=== PATIENT | female | born 1975 | race Asian ===

== ENCOUNTER 2021-08-06 09:47 | Outpatient (REF) | payer OTHER, SELFPAY ==
[2021-08-06 12:23] LABS: MANUAL DIFF FLAG NO
[2021-08-06 13:19] LABS: Basophils Absolute Auto 0.1 X10*3/uL (0.0-0.2); Basophils Percent Auto 0.8 % (0-2); Eosinophils Absolute Auto 0.1 X10*3/uL (0.0-0.4); Eosinophils Percent Auto 1.2 % (0-4); Hematocrit 35.4 % (37.0-47.0); Hemoglobin 11.2 g/dl (12.0-16.0); Imm Gran Abs Auto 0.01 X10*3/uL (0.00-0.03); Imm Gran Pct Auto 0.2 % (0.0-0.4); Lymphocytes Absolute Auto 1.6 X10*3/uL (1.2-4.9); Lymphocytes Percent Auto 24.8 % (20-40); Mean Corpuscular HGB Conc 31.6 g/dl (31.0-35.0); Mean Corpuscular Hemoglobin 27.9 pg (27.0-33.0); Mean Corpuscular Volume 88.3 fL (80.0-98.0); Mean Platelet Volume 10.7 fL (9.4-12.3); Monocytes Absolute Auto 0.3 X10*3/uL (0.1-1.2); Monocytes Percent Auto 4.9 % (2-11); Neutrophils Absolute Auto 4.5 x10*3/uL (2.0-8.3); Neutrophils Percent Auto 68.1 % (45-73); Platelet Count 291 X10*3/uL (160-400); Red Blood Count 4.01 X10*6/uL (4.20-5.50); Red Cell Distribution Width 14.2 % (11.0-16.0); White Blood Count 6.5 X10*3/uL (4.8-10.8)
[2021-08-06 13:55] LABS: Alanine Aminotransferase 15 U/L (0-31); Aspartate Amino Transferase 24 U/L (5-31); C Reactive Protein 0.41 mg/dL (< or = 0.50); Estimated Glomerular Filt Rate > 60
[2021-08-06 14:03] LABS: Erythrocyte Sedimentation Rate 51 MM/HR (0-20)
[2021-08-10 14:16] LABS: Vitamin D 25-OH, D2 30 ng/mL; Vitamin D 25-OH, D3 <4 ng/mL; Vitamin D 25-OH, Total 30 ng/mL (30-100)
== END 2021-08-06 09:48 | disposition home or self-care (01) ==
LOC: HO.LAB 09:47
PROVIDERS: PCP Physician Assistant; Visit Provider Internal Medicine Rheumatology
DX: M17.0 Bilateral primary osteoarthritis of knee (principal); M05.9 Rheumatoid arthritis with rheumatoid factor, unspecified; E78.5 Hyperlipidemia, unspecified; E55.9 Vitamin D deficiency, unspecified; Z79.899 Other long term (current) drug therapy
CPT/HCPCS: 20610; 36415; 82306; 82565; 84450; 84460; 85025; 85652; 86140; 99212

== ENCOUNTER 2021-12-09 12:04 | Outpatient (REF) | payer OTHER, SELFPAY ==
[2021-12-09 13:30] LABS: MANUAL DIFF FLAG NO
[2021-12-09 13:37] LABS: Basophils Percent Auto 0.6 % (0-2); Eosinophils Absolute Auto 0.1 X10*3/uL (0.0-0.4); Eosinophils Percent Auto 1.5 % (0-4); Hematocrit 36.7 % (37.0-47.0); Hemoglobin 11.5 g/dl (12.0-16.0); Imm Gran Abs Auto 0.02 X10*3/uL (0.00-0.03); Imm Gran Pct Auto 0.3 % (0.0-0.4); Lymphocytes Absolute Auto 1.4 X10*3/uL (1.2-4.9); Lymphocytes Percent Auto 20.9 % (20-40); Mean Corpuscular HGB Conc 31.3 g/dl (31.0-35.0); Mean Corpuscular Hemoglobin 27.3 pg (27.0-33.0); Mean Platelet Volume 10.7 fL (9.4-12.3); Monocytes Absolute Auto 0.4 X10*3/uL (0.1-1.2); Monocytes Percent Auto 6.6 % (2-11); Neutrophils Absolute Auto 4.7 x10*3/uL (2.0-8.3); Neutrophils Percent Auto 70.1 % (45-73); Platelet Count 310 X10*3/uL (160-400); Red Blood Count 4.22 X10*6/uL (4.20-5.50); Red Cell Distribution Width 14.7 % (11.0-16.0); White Blood Count 6.7 X10*3/uL (4.8-10.8)
[2021-12-09 14:05] LABS: Alanine Aminotransferase 20 U/L (0-31); Albumin Level 4.3 g/dL (3.5-5.0); Alkaline Phosphatase 143 U/L (39-117); Anion Gap 16 (12-20); Aspartate Amino Transferase 25 U/L (5-31); Bilirubin Total 0.4 mg/dL (0.0-1.0); Blood Urea Nitrogen 23 mg/dL (9-16); C Reactive Protein 0.42 mg/dL (< or = 0.50); Calcium 9.6 mg/dL (8.4-10.2); Carbon Dioxide 24 mmol/L (22-29); Chloride 104 mmol/L (96-108); Estimated Glomerular Filt Rate > 60; Glucose Random 82 mg/dL (60-115); Potassium 4.8 mmol/L (3.3-5.1); Sodium 139 mmol/L (135-145); Total Protein 7.5 g/dL (6.5-8.0)
[2021-12-09 14:33] LABS: Erythrocyte Sedimentation Rate 70 MM/HR (0-20)
== END 2021-12-09 12:05 | disposition home or self-care (01) ==
LOC: HO.10HDL 12:04
PROVIDERS: Visit Provider Internal Medicine Rheumatology
DX: M05.9 Rheumatoid arthritis with rheumatoid factor, unspecified (principal); M66.20 Spontaneous rupture of extensor tendons, unspecified site; M17.0 Bilateral primary osteoarthritis of knee; Z79.899 Other long term (current) drug therapy
CPT/HCPCS: 36415; 80053; 85025; 85652; 86140; 99212

== ENCOUNTER 2021-12-25 08:24 | Outpatient (REF) | payer OTHER, SELFPAY ==
--- NOTE | ~2021-12-25 | XR_ITS ---
EXAMINATION: XR HAND, RIGHT CLINICAL INFORMATION: Pain in right hand COMPARISON: None TECHNIQUE: PA, lateral, and oblique views of the right hand. FINDINGS: There is loss of PIP and DIP joint space of all digits. In addition there is anterior subluxation of second MCP joint. No visible acute fracture, dislocation or subluxation seen. There is ex articular osteoporosis suspicious for arthritis. No visible acute fracture seen. XR/XR hand RT min 3V IMPRESSION: Findings suspicious for rheumatoid arthritis. There is anterior subluxation of second MCP joint. Loss of PIP and DIP joint space all digits is noted. No acute fractures seen.
== END 2021-12-25 08:25 | disposition home or self-care (01) ==
LOC: HO.HOSX 08:24
PROVIDERS: Visit Provider Orthopaedic Surgery
DX: M79.641 Pain in right hand (principal); M66.20 Spontaneous rupture of extensor tendons, unspecified site; M05.9 Rheumatoid arthritis with rheumatoid factor, unspecified
CPT/HCPCS: 73130; 99202

== ENCOUNTER 2022-01-14 11:54 | Outpatient (REF) | payer OTHER, SELFPAY ==
[2022-01-14 13:40] LABS: MANUAL DIFF FLAG NO
[2022-01-14 13:50] LABS: Basophils Percent Auto 0.4 % (0-2); Eosinophils Absolute Auto 0.1 X10*3/uL (0.0-0.4); Eosinophils Percent Auto 0.9 % (0-4); Hematocrit 35.4 % (37.0-47.0); Hemoglobin 11.4 g/dl (12.0-16.0); Imm Gran Abs Auto 0.02 X10*3/uL (0.00-0.03); Imm Gran Pct Auto 0.3 % (0.0-0.4); Lymphocytes Absolute Auto 1.3 X10*3/uL (1.2-4.9); Lymphocytes Percent Auto 18.4 % (20-40); Mean Corpuscular HGB Conc 32.2 g/dl (31.0-35.0); Mean Corpuscular Hemoglobin 28.1 pg (27.0-33.0); Mean Corpuscular Volume 87.2 fL (80.0-98.0); Mean Platelet Volume 10.7 fL (9.4-12.3); Monocytes Absolute Auto 0.4 X10*3/uL (0.1-1.2); Monocytes Percent Auto 6.4 % (2-11); Neutrophils Absolute Auto 5.1 x10*3/uL (2.0-8.3); Neutrophils Percent Auto 73.6 % (45-73); Platelet Count 292 X10*3/uL (160-400); Red Blood Count 4.06 X10*6/uL (4.20-5.50); Red Cell Distribution Width 14.6 % (11.0-16.0); White Blood Count 6.9 X10*3/uL (4.8-10.8)
[2022-01-14 14:40] LABS: Alanine Aminotransferase 12 U/L (0-31); Albumin Level 4.2 g/dL (3.5-5.0); Alkaline Phosphatase 135 U/L (39-117); Anion Gap 16 (12-20); Aspartate Amino Transferase 24 U/L (5-31); Bilirubin Total 0.3 mg/dL (0.0-1.0); Blood Urea Nitrogen 21 mg/dL (9-16); C Reactive Protein 0.73 mg/dL (< or = 0.50); Calcium 9.8 mg/dL (8.4-10.2); Carbon Dioxide 24 mmol/L (22-29); Chloride 106 mmol/L (96-108); Cholesterol 162 mg/dL; Estimated Glomerular Filt Rate > 60; Glucose Random 75 mg/dL (60-115); HDL Cholesterol 52 mg/dL; LDL Cholesterol Calculated 87 mg/dl; Potassium 4.6 mmol/L (3.3-5.1); Sodium 141 mmol/L (135-145); Total Protein 7.4 g/dL (6.5-8.0); Triglycerides 118 mg/dL
[2022-01-14 14:46] LABS: Erythrocyte Sedimentation Rate 58 MM/HR (0-20)
== END 2022-01-14 11:55 | disposition home or self-care (01) ==
LOC: HO.10HDL 11:54
PROVIDERS: Visit Provider Internal Medicine Rheumatology
DX: M66.20 Spontaneous rupture of extensor tendons, unspecified site (principal); M05.9 Rheumatoid arthritis with rheumatoid factor, unspecified; M17.0 Bilateral primary osteoarthritis of knee; E78.5 Hyperlipidemia, unspecified; Z79.899 Other long term (current) drug therapy
CPT/HCPCS: 36415; 80053; 80061; 85025; 85652; 86140; 99212

== ENCOUNTER 2022-04-28 07:54 | Outpatient (REF) | payer OTHER, SELFPAY ==
[2022-04-28 09:05] LABS: MANUAL DIFF FLAG NO
[2022-04-28 09:30] LABS: Basophils Percent Auto 0.5 % (0-2); Eosinophils Absolute Auto 0.1 X10*3/uL (0.0-0.4); Eosinophils Percent Auto 0.8 % (0-4); Hemoglobin 11.7 g/dl (12.0-16.0); Imm Gran Abs Auto 0.02 X10*3/uL (0.00-0.03); Imm Gran Pct Auto 0.3 % (0.0-0.4); Lymphocytes Absolute Auto 2.3 X10*3/uL (1.2-4.9); Lymphocytes Percent Auto 38.5 % (20-40); Mean Corpuscular HGB Conc 31.6 g/dl (31.0-35.0); Mean Corpuscular Hemoglobin 27.5 pg (27.0-33.0); Mean Corpuscular Volume 87.1 fL (80.0-98.0); Mean Platelet Volume 10.2 fL (9.4-12.3); Monocytes Absolute Auto 0.4 X10*3/uL (0.1-1.2); Monocytes Percent Auto 6.4 % (2-11); Neutrophils Absolute Auto 3.2 x10*3/uL (2.0-8.3); Neutrophils Percent Auto 53.5 % (45-73); Platelet Count 321 X10*3/uL (160-400); Red Blood Count 4.25 X10*6/uL (4.20-5.50); Red Cell Distribution Width 14.9 % (11.0-16.0); White Blood Count 5.9 X10*3/uL (4.8-10.8)
[2022-04-28 09:59] LABS: Alanine Aminotransferase 15 U/L (0-31); Aspartate Amino Transferase 24 U/L (5-31); C Reactive Protein 0.18 mg/dL (< or = 0.50); Estimated Glomerular Filt Rate > 60
[2022-04-28 10:09] LABS: Erythrocyte Sedimentation Rate 40 MM/HR (0-20)
== END 2022-04-28 07:55 | disposition home or self-care (01) ==
LOC: HO.LAB 07:54
PROVIDERS: PCP Physician Assistant; Visit Provider Internal Medicine Rheumatology
DX: M05.9 Rheumatoid arthritis with rheumatoid factor, unspecified (principal); M17.0 Bilateral primary osteoarthritis of knee; Z79.899 Other long term (current) drug therapy
CPT/HCPCS: 36415; 82565; 84450; 84460; 85025; 85652; 86140; 99212

== ENCOUNTER 2022-08-19 11:39 | Outpatient (REF) | payer OTHER, SELFPAY ==
[2022-08-19 13:16] LABS: MANUAL DIFF FLAG NO
[2022-08-19 13:19] LABS: Basophils Percent Auto 0.6 % (0-2); Eosinophils Absolute Auto 0.2 X10*3/uL (0.0-0.4); Eosinophils Percent Auto 2.1 % (0-4); Hematocrit 37.6 % (37.0-47.0); Hemoglobin 11.8 g/dl (12.0-16.0); Imm Gran Abs Auto 0.02 X10*3/uL (0.00-0.03); Imm Gran Pct Auto 0.3 % (0.0-0.4); Lymphocytes Absolute Auto 2.2 X10*3/uL (1.2-4.9); Lymphocytes Percent Auto 31.2 % (20-40); Mean Corpuscular HGB Conc 31.4 g/dl (31.0-35.0); Mean Corpuscular Hemoglobin 27.6 pg (27.0-33.0); Mean Corpuscular Volume 87.9 fL (80.0-98.0); Monocytes Absolute Auto 0.4 X10*3/uL (0.1-1.2); Monocytes Percent Auto 5.5 % (2-11); Neutrophils Absolute Auto 4.2 x10*3/uL (2.0-8.3); Neutrophils Percent Auto 60.3 % (45-73); Platelet Count 311 X10*3/uL (160-400); Red Blood Count 4.28 X10*6/uL (4.20-5.50); Red Cell Distribution Width 14.1 % (11.0-16.0)
[2022-08-19 13:41] LABS: Alanine Aminotransferase 36 U/L (0-31); Aspartate Amino Transferase 29 U/L (5-31); C Reactive Protein 0.32 mg/dL (< or = 0.50); Estimated Glomerular Filt Rate > 60
[2022-08-19 14:10] LABS: Erythrocyte Sedimentation Rate 44 MM/HR (0-20)
== END 2022-08-19 11:40 | disposition home or self-care (01) ==
LOC: HO.10HDL 11:39
PROVIDERS: Visit Provider Internal Medicine Rheumatology
DX: M05.9 Rheumatoid arthritis with rheumatoid factor, unspecified (principal); Z79.899 Other long term (current) drug therapy
CPT/HCPCS: 36415; 82565; 84450; 84460; 85025; 85652; 86140

== ENCOUNTER → 2022-08-20 08:30 | Outpatient (BNVA) | payer OTHER, SELFPAY | PROVIDERS: PCP Physician Assistant; Visit Provider Internal Medicine Rheumatology | DX: M17.0 Bilateral primary osteoarthritis of knee (principal); M05.9 Rheumatoid arthritis with rheumatoid factor, unspecified; Z79.899 Other long term (current) drug therapy | CPT/HCPCS: 20610; 99212 ==

== ENCOUNTER 2022-11-20 09:59 | Outpatient (REF) | payer OTHER, SELFPAY ==
[2022-11-20 10:10] LABS: MANUAL DIFF FLAG NO
[2022-11-20 10:43] LABS: Basophils Absolute Auto 0.1 X10*3/uL (0.0-0.2); Basophils Percent Auto 0.7 % (0-2); Eosinophils Absolute Auto 0.1 X10*3/uL (0.0-0.4); Eosinophils Percent Auto 1.3 % (0-4); Hematocrit 34.4 % (37.0-47.0); Hemoglobin 10.9 g/dl (12.0-16.0); Imm Gran Abs Auto 0.03 X10*3/uL (0.00-0.03); Imm Gran Pct Auto 0.4 % (0.0-0.4); Lymphocytes Absolute Auto 2.1 X10*3/uL (1.2-4.9); Lymphocytes Percent Auto 29.7 % (20-40); Mean Corpuscular HGB Conc 31.7 g/dl (31.0-35.0); Mean Corpuscular Hemoglobin 27.5 pg (27.0-33.0); Mean Corpuscular Volume 86.9 fL (80.0-98.0); Mean Platelet Volume 10.2 fL (9.4-12.3); Monocytes Absolute Auto 0.4 X10*3/uL (0.1-1.2); Monocytes Percent Auto 6.1 % (2-11); Neutrophils Absolute Auto 4.4 x10*3/uL (2.0-8.3); Neutrophils Percent Auto 61.8 % (45-73); Platelet Count 280 X10*3/uL (160-400); Red Blood Count 3.96 X10*6/uL (4.20-5.50); Red Cell Distribution Width 14.5 % (11.0-16.0); White Blood Count 7.2 X10*3/uL (4.8-10.8)
[2022-11-20 11:14] LABS: Alanine Aminotransferase 14 U/L (0-31); Aspartate Amino Transferase 25 U/L (5-31); C Reactive Protein 0.87 mg/dL (< or = 0.50); Estimated Glomerular Filt Rate > 60
[2022-11-20 11:25] LABS: Erythrocyte Sedimentation Rate 57 MM/HR (0-20)
== END 2022-11-20 10:00 | disposition home or self-care (01) ==
LOC: HO.LAB 09:59
PROVIDERS: PCP Physician Assistant; Visit Provider Internal Medicine Rheumatology
DX: M17.0 Bilateral primary osteoarthritis of knee (principal); M05.9 Rheumatoid arthritis with rheumatoid factor, unspecified; Z79.899 Other long term (current) drug therapy
CPT/HCPCS: 36415; 82565; 84450; 84460; 85025; 85652; 86140; 99212

== ENCOUNTER 2022-11-20 10:21 | Outpatient (AMB) | payer OTHER, SELFPAY ==
--- NOTE | 2022-11-20 10:39 | A.OFFVIS_ITS ---
Intake Vital Signs 11/20/22 10:49 Height 5 ft Weight 132 lb 11.492 oz BMI 25.9 BP 104/62 Blood Pressure Location Lt brachial Position Sitting Pulse 76 Pulse Source Pulse Oximeter Temp 98.1 F Temp Source Skin Pulse Oximetry (%) 98 Oxygen Delivery Method Room Air Intake Visit Reasons: ra Intake Note: Here for RA follow up. Patient reports Xeljanz is not as effective anymore. Would like to go back to Rinvoq. 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 She reports a bit more pain in the right wrist, right hand, left elbow, and the left ankle. The knees did improve with a corticosteroid injection about 3 months ago but the left still has more pain when she walks. She has been on the Xeljanz 5 mg twice a day. She does take piroxicam 10 b.i.d. and occasionally takes 10 mg prednisone for 3 days in a row if her symptoms increase. At this point she agrees that the symptom control was better when she was on Rinvoq. However she had developed intermittent bloody diarrhea on the Rinvoq and thought it was related to that medication. She never made it for any significant workup. She now admits that she was taking a product for cleansing her colon. This was purchased in the form of a tea . This was apparently giving her diarrhea but she thought that was okay. Finally a friend told her that probably it was not a good idea so she stopped it and the diarrhea subsided. So at this point she wants to go back on the Rinvoq. [facility] Medical History (Updated 08/20/22 @ 13:52 by Vasyl Sousa MD) Cervical radicular pain History of latent tuberculosis Hyperlipidemia Long-term use of immunosuppressant medication Osteoarthritis of knees, bilateral Seropositive rheumatoid arthritis Vitamin D deficiency Social History Household Members: Family Housing: Condominium Are you a primary career placement specialist to a significant other at home: No Do you presently have visiting nurse or other home services: No 75 years or older and lives alone: No Alcohol intake: never Patient Tobacco Use Status: Never used Tobacco e-Cigarette/Vaping Use: Never Used service: No Current occupational status: employed Current occupation: [employer] Review of Systems Const Details: Negative for appetite change, weight change, fever, chills, malaise and fatigue Eyes Details: Negative for vision change, dry eyes,headaches and dizziness Card Details: Negative chest pain, edema and syncope Resp Details: Negative for SOB, cough and wheezing GI Details: Negative indigestion/heartburn, nausea, abdominal pain, bowel changes, diarrhea, constipation and bloody stool. Endo Details: Negative for polyuria and polydypsia Oumar/Lymph Details: Negative for excessive bruising or bleeding. Physical Exam Vital Signs: Last Vital Signs Temp 98.1 F 11/20/22 10:49 Pulse 76 11/20/22 10:49 BP 104/62 11/20/22 10:49 Pulse Ox 98 11/20/22 10:49 Oxygen Delivery Method Room Air 11/20/22 10:49 BMI result Body Mass Index 25.9 APPEARANCE: Patient in no acute distress EYES no redness, pupils equal and reactive to light, eyelids normal ABD: Normal bowel sounds, no organomegaly, masses or tenderness. EXTREMITIES: No edema, no calf tenderness, normal peripheral pulses. SKIN: No inflammatory or neoplastic lesions. Normal color and turgor JOINT EXAM: Cervical Spine:.? Full range of motion without pain; no tenderness. Thoracic Spine:.? No scoliosis.? No tenderness on palpation. Lumbar Spine:.? Alignment normal.? Full range of motion without pain, no tenderness. Chest Wall:.? No tenderness, swelling, increased warmth or erythema. Hands:? Right:? Mild swelling of the 1st 2 MCP joints. The 2nd MCP is mildly tender today. There is also some mild thickening at the 2nd PIP with mild tenderness. She has some early swan necking at the 2nd through 4th PIP joints. These are not tender today.? No flexor tendon triggering, tenderness or thenar atrophy.? She is seemingly able to extend the 4th and 5th fingers today. Left: Mild swelling and tenderness in the 2nd and 4th MCP joints. Some slight thickening and tenderness at the 5th PIP joint. Other PIP is seem okay without tenderness or swelling..? There is some slight swan necking evident in the 3rd and 4th PIP is but these are not tender or swollen today.? No thenar atrophy, flexor tendon triggering or sensory loss. Wrists:? Right:? There is mild pain with flexion at 10 degrees or extension at 30 degrees and motion is limited at those points.? There is slight flexion deformity, mild dorsal tenderness, and soft tissue swelling; her wrist is not red or warm.? She is wearing an Micheal bandage on it today.? Left :? There is normal pain-free range of motion without tenderness, swelling, increased warmth or erythema. Elbows:? Left:? She lacks about 5 degrees of full extension with some slight thickening and tenderness over the joint space.? Right:pain-free range of motion without tenderness, swelling, increased warmth or erythema. Shoulders:.??Right: Mild discomfort with extremes of normal range of motion. Slight anterior tenderness. No adenopathy or weakness. Left: Full range of motion without pain. No tenderness, weakness, swelling, increased warmth or erythema. Hips:.? Full range of motion without pain. Hip bursa:.? No tenderness. Knees:? Right:? There is mild discomfort with extremes of flexion or extension. There is slight medial compartment tenderness without effusion. There is some mild patellofemoral crepitus without redness or warmth.? There is no popliteal tenderness or swelling.? Left:? Mild pain flexion beyond 90 degrees or with attempts at full extension.? There is mild medial and lateral tenderness with no effusion, redness or warmth.? There is mild patellofemoral crepitus.? She has no popliteal swelling or tenderness. Ankles:? Left:? No tenderness with mild swelling.? No redness or warmth.? Right:? Slight discomfort with extremes of inversion or eversion and some minimal tenderness but no swelling, redness or warmth.? Feet:? Right:? Normal pain-free range of motion with some slight tenderness at the 1st 2 MTP joints but no swelling or redness is notable.? Left: Normal pain- free range of motion with tenderness across the instep.? No swelling, redness or warmth. ?? Results Reviewed Results Reviewed: Laboratory Tests 0208/19/22 11/20/22 09:04 11:48 10:05 WBC 7.2 Hgb 11.7 L 11.8 L 10.9 L Lymph # (Auto) 2.1 Laboratory Tests 08/19/22 11:48 Creatinine 0.72 AST 29 ALT 36 H C-Reactive Protein 0.32 Assessment & Plan Assessment & Plan (1) Osteoarthritis of knees, bilateral: Comment: secondary to RA Code(s): M17.0 - Bilateral primary osteoarthritis of knee (2) Long-term use of immunosuppressant medication: Code(s): Z79.899 - Other jail (current) drug therapy (3) Seropositive rheumatoid arthritis: Comment: 09/03 - early or mild rheumatoid arthritis; NSAIDs (topically and oral); 2014 - More synovitis. RF and CCP positive Low dose prednisone started 09/04 - side effects with methotrexate (oral ulcers, eye twitching). Humira started October 04, 2014 stopped after two doses due to headache, nausea, lightheadedness Cimzia since 03/06, sulfasalazine added 06/05 - not tolerated and stopped 09/05. Cimzia stopped as well 09/05 due to ineffectiveness Positive TB test - quantiferon 09/05 and isoniazid started Xeljanz started 01/27/16 - changed to Rinvoq due to faiing effectiveness 11/2021. R 4th and 5th tendon rupture. 07/2022 back on Xeljanz because she felt the Rinvoq gave abdominal pain, chest pain, and rectal bleeding. Code(s): M05.9 - Rheumatoid arthritis with rheumatoid factor, unspecified Plan Rheumatoid arthritis with multiple joint involvement with swelling; they seem to be more tender than they had been when she was on the Rinvoq. I would agree that she did better from a clinical standpoint in terms of control of the synovitis with the Rinvoq. The assumption was that the Rinvoq was giving her the diarrhea. Now she admits that she was taking many dosew of an [id number] colon cleansing tea. She was using it multiple times a day it was giving her the diarrhea. When she stopped it it did subside. I would tend to agree that this colon cleansing might have given her diarrhea and the subsequent bleeding. We will see if we can get the use of Rinvoq approved again for her insurance and she will stop the Xeljanz. The radiographs of the knees show advanced osteoarthritis in the knees so some of her knee pain, particularly that which comes on with walking is likely due to secondary osteoarthritis. This may limit her response to anti-inflammatory treatment. The hemoglobin is a bit lower today, perhaps related to increased synovitis. We will keep an eye on that as we monitor the Rinvoq. Lab workis done today and ordered for before next visit in 2 months. I warned her that when she takes [id number] substances without at least letting me know there is a risk that it could inte ract adversely with her disease or its medication. Orders: Orders Erythrocyte Sedimentation Rate Today M05.9 - Rheumatoid arthritis with rheumatoid factor, unspecified Alanine Aminotransferase Today M05.9 - Rheumatoid arthritis with rheumatoid factor, unspecified, Z79.899 - Other supervisor intermediates (current) drug therapy C Reactive Protein Today M05.9 - Rheumatoid arthritis with rheumatoid factor, unspecified Aspartate Amino Transferase Today M05.9 - Rheumatoid arthritis with rheumatoid factor, unspecified, Z79.899 - Other jail (current) drug therapy Complete Blood Count Auto Diff Today M05.9 - Rheumatoid arthritis with rheumatoid factor, unspecified, Z79.899 - Other jail (current) drug therapy Creatinine Today M05.9 - Rheumatoid arthritis with rheumatoid factor, unspecified, Z79.899 - Other supervisor intermediates (current) drug therapy Medications: New upadacitinib ER (Rinvoq) 15 mg PO DAILY 30 tabs 1RF M05.9 - Rheumatoid arthritis with rheumatoid factor, unspecified Changed From prednisone 10 mg PO DAILY PRN M05.9 - Rheumatoid arthritis with rheumatoid factor, unspecified To prednisone for 3 days in event of a flare up of pains 10 mg (2 x 5 mg) PO DAILY 30 tabs 0RF M05.9 - Rheumatoid arthritis with rheumatoid factor, unspecified Discontinued tofacitinib (Xeljanz) Discontinued Reason: Doctor's Order 5 mg PO BID 60 tabs 1RF M05.9 - Rheumatoid arthritis with rheumatoid factor, unspecified Coding Level of Care Code Est Pt Level 4 (19735) Diagnoses Osteoarthritis of knees, bilateral M17.0 Long-term use of immunosuppressant medication Z79.899 Seropositive rheumatoid arthritis M05.9
[2022-11-20 10:49] VITALS: BP 104/62; PULSE 76; TEMP 36.7; O2SAT 98; BMI 25.9
== END 2022-11-20 11:37 | disposition home or self-care (01) ==
PROVIDERS: PCP Physician Assistant; Visit Provider Internal Medicine Rheumatology
DX: M05.79 Rheumatoid arthritis with rheumatoid factor of multiple sites without organ or systems involvement (principal); M17.0 Bilateral primary osteoarthritis of knee; Z79.899 Other long term (current) drug therapy
CPT/HCPCS: 99214

== ENCOUNTER 2022-12-23 13:45 | Outpatient (REF) | payer OTHER, SELFPAY ==
[2022-12-23 14:02] LABS: MANUAL DIFF FLAG NO
[2022-12-23 14:48] LABS: Basophils Absolute Auto 0.1 X10*3/uL (0.0-0.2); Eosinophils Absolute Auto 0.1 X10*3/uL (0.0-0.4); Eosinophils Percent Auto 1.3 % (0-4); Hematocrit 38.4 % (37.0-47.0); Hemoglobin 12.1 g/dl (12.0-16.0); Imm Gran Abs Auto 0.02 X10*3/uL (0.00-0.03); Imm Gran Pct Auto 0.4 % (0.0-0.4); Lymphocytes Absolute Auto 1.9 X10*3/uL (1.2-4.9); Lymphocytes Percent Auto 36.8 % (20-40); Mean Corpuscular HGB Conc 31.5 g/dl (31.0-35.0); Mean Corpuscular Hemoglobin 28.1 pg (27.0-33.0); Mean Corpuscular Volume 89.1 fL (80.0-98.0); Mean Platelet Volume 10.4 fL (9.4-12.3); Monocytes Absolute Auto 0.4 X10*3/uL (0.1-1.2); Monocytes Percent Auto 7.1 % (2-11); Neutrophils Absolute Auto 2.8 x10*3/uL (2.0-8.3); Neutrophils Percent Auto 53.4 % (45-73); Platelet Count 314 X10*3/uL (160-400); Red Blood Count 4.31 X10*6/uL (4.20-5.50); Red Cell Distribution Width 15.1 % (11.0-16.0); White Blood Count 5.2 X10*3/uL (4.8-10.8)
[2022-12-23 15:23] LABS: Alanine Aminotransferase 67 U/L (0-31); Aspartate Amino Transferase 49 U/L (5-31); C Reactive Protein < 0.04 mg/dL (< or = 0.50); Estimated Glomerular Filt Rate > 60
[2022-12-23 15:31] LABS: Erythrocyte Sedimentation Rate 18 MM/HR (0-20)
== END 2022-12-23 13:46 | disposition home or self-care (01) ==
LOC: HO.LAB 13:45
PROVIDERS: Visit Provider Internal Medicine Rheumatology
DX: M05.9 Rheumatoid arthritis with rheumatoid factor, unspecified (principal); Z79.899 Other long term (current) drug therapy
CPT/HCPCS: 36415; 82565; 84450; 84460; 85025; 85652; 86140

== ENCOUNTER 2022-12-24 10:19 | Outpatient (AMB) | payer OTHER, SELFPAY ==
--- NOTE | 2022-12-24 10:30 | MHC.OFFVIS ---
Intake Vital Signs 12/24/22 10:42 Height 5 ft Weight 135 lb 9.349 oz BMI 26.5 BP 116/78 Blood Pressure Location Lt brachial Position Sitting Pulse 76 Pulse Source Pulse Oximeter Temp 97.4 F Temp Source Skin Pulse Oximetry (%) 98 Oxygen Delivery Method Room Air Intake Visit Reasons: ra Intake Note: Patient presents today to follow up on RA. 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 She says she feels much better now that she is back on Rinvoq at 15 mg daily, piroxicam 10 mg b.i.d., and occasional acetaminophen. She has not needed any prednisone since we restarted the Rinvoq. She is no longer working at a [employer]. [facility] Medical History (Updated 12/24/22 @ 13:28 by Vasyl Sousa MD) Vitamin D deficiency Long-term use of immunosuppressant medication Osteoarthritis of knees, bilateral Hyperlipidemia History of latent tuberculosis Cervical radicular pain Seropositive rheumatoid arthritis Social History Household Members: Family [facility] Are you a primary child care counselor to a significant other at home: No Do you presently have visiting nurse or other home services: No 75 years or older and lives alone: No Alcohol intake: never Patient Tobacco Use Status: Never used Tobacco e-Cigarette/Vaping Use: Never Used service: No Current occupational status: employed Current occupation: [employer] Review of Systems Const Details: Negative for appetite change, weight change, fever, chills, malaise and fatigue Eyes Details: Negative for vision change, dry eyes,headaches and dizziness ENT Details: Negative for hearing change, tinnitus, oral ulcer, nose bleeds and oral dryness. Card Details: Negative chest pain, edema and syncope Resp Details: Negative for SOB, cough and wheezing GI Details: Negative indigestion/heartburn, nausea, abdominal pain, bowel changes, diarrhea, constipation and bloody stool. Skin/Breast Details: Negative for itching, rash, hives, Raynaud's symptoms, sun sensitivity, and skin cancer Oumar/Lymph Details: Negative for excessive bruising or bleeding. Physical Exam Vital Signs: Last Vital Signs Temp 97.4 F 12/24/22 10:42 Pulse 76 12/24/22 10:42 BP 116/78 12/24/22 10:42 Pulse Ox 98 12/24/22 10:42 Oxygen Delivery Method Room Air 12/24/22 10:42 BMI result Body Mass Index 26.5 APPEARANCE: Patient in no acute distress EYES no redness, pupils equal and reactive to light, eyelids normal EXTREMITIES: No edema, no calf tenderness, normal peripheral pulses. JOINT EXAM: Cervical Spine:.? Full range of motion without pain; no tenderness. Thoracic Spine:.? No scoliosis.? No tenderness on palpation. Lumbar Spine:.? Alignment normal.? Full range of motion without pain, no tenderness. Chest Wall:.? No tenderness, swelling, increased warmth or erythema. Hands:? Right:? Mild swelling of the 2nd MCP joint. There is no tenderness in the MCP joints today. There is also some mild thickening at the 2nd PIP with no tenderness. She has some early swan necking at the 2nd through 4th PIP joints. These are not tender today.? No flexor tendon triggering, tenderness or thenar atrophy.? She is seemingly able to extend the 4th and 5th fingers today. Left: Mild swelling without tenderness at the 2nd and 4th MCP joints. Some slight thickening and but no tenderness at the 5th PIP joint. Other PIP's seem okay without tenderness or swelling..? There is some slight swan necking evident in the 3rd and 4th PIP is but these are not tender or swollen today.? No thenar atrophy, flexor tendon triggering or sensory loss. Wrists:? Right:? There is slight pain with flexion at 10 degrees or extension at 30 degrees and motion is limited at those points.? There is slight flexion deformity, minimal dorsal tenderness, and soft tissue swelling; her wrist is not red or warm.? She is wearing an Micheal bandage on it today.? Left :? There is normal pain-free range of motion without tenderness, swelling, increased warmth or erythema. Elbows:? Left:? She lacks about 5 degrees of full extension with some slight thickening and tenderness over the joint space.? Right:pain-free range of motion without tenderness, swelling, increased warmth or erythema. Shoulders:.??Right: No discomfort with extremes of normal range of motion. Slight anterior tenderness. No adenopathy or weakness. Left: Full range of motion without pain. No tenderness, weakness, swelling, increased warmth or erythema. Hips:.? Full range of motion without pain. Hip bursa:.? No tenderness. Knees:? Right:? There is mild discomfort with extremes of flexion or extension. There is slight medial compartment tenderness without effusion. There is some mild patellofemoral crepitus without redness or warmth.? There is no popliteal tenderness or swelling.? Left:? Mild pain flexion beyond 90 degrees or with attempts at full extension.? There is mild medial and lateral tenderness with no effusion, redness or warmth.? There is mild patellofemoral crepitus.? She has no popliteal swelling or tenderness. Ankles:? Left:? No tenderness with mild swelling.? No redness or warmth.? Right:? Slight discomfort with extremes of inversion or eversion and some minimal tenderness but no swelling, redness or warmth.? Feet:? Right:? Normal pain-free range of motion with some slight tenderness at the 1st 2 MTP joints but no swelling or redness is notable.? Left: Normal pain-free range of motion with tenderness across the instep.? No swelling, redness or warmth. ?? Results Reviewed Results Reviewed: Laboratory Tests 12/23/22 14:00 WBC 5.2 Hgb 12.1 ESR 18 Creatinine 0.76 AST 49 H ALT 67 H C-Reactive Protein < 0.04 Assessment & Plan Assessment & Plan (1) Elevated transaminase measurement: Code(s): R74.01 - Elevation of levels of liver transaminase levels (2) Long-term use of immunosuppressant medication: Code(s): Z79.899 - Other intermediate card tender (current) drug therapy (3) Osteoarthritis of knees, bilateral: Comment: secondary to RA Code(s): M17.0 - Bilateral primary osteoarthritis of knee (4) Seropositive rheumatoid arthritis: Comment: 09/03 - early or mild rheumatoid arthritis; NSAIDs (topically and oral); 2014 - More synovitis. RF and CCP positive Low dose prednisone started 09/04 - side effects with methotrexate (oral ulcers, eye twitching). Humira started October 04, 2014 stopped after two doses due to headache, nausea, lightheadedness Cimzia since 03/06, sulfasalazine added 06/05 - not tolerated and stopped 09/05. Cimzia stopped as well 09/05 due to ineffectiveness Positive TB test - quantiferon 09/05 and isoniazid started Xeljanz started 01/27/16 - changed to Rinvoq due to faiing effectiveness 11/2021. R 4th and 5th tendon rupture. 07/2022 back on Xeljanz because she felt the Rinvoq gave abdominal pain, chest pain, and rectal bleeding. 11/2022 -back on Rinvoq; xeljanz not effective(Gi symptoms felt due to colonic purging supplements) Code(s): M05.9 - Rheumatoid arthritis with rheumatoid factor, unspecified Plan Rheumatoid arthritis with improvement in her symptoms and signs of synovitis with the reinstitution of the Rinvoq. She is no longer needing any prednisone. She does have mild elevation of the transaminases. This had been seen once before. I think she was on the Rinvoq at the time. She did not seem to have any progression of that problem. She has not gained any weight. There is no documented history of type 2 diabetes. She is not using alcohol. I told her that it is possible the Rinvoq is causing the LFT elevations but I do not think it is at a degree that would push us to stop the medications. The numbers do bear watching with another set of lab work in about 5 weeks or so. It is also possible she might have been exposed to a virus that caused some mild transaminase elevations. She remains concerned about the LFT elevations but I explained that we would be following them closely. We will schedule her back for 2 months but again recheck the lab work in 4 or 5 weeks. Today's history, exam, and review of laboratory work with her took 36 minutes. Orders: Orders Alanine Aminotransferase Today Z79.899 - Other retirement (current) drug therapy Aspartate Amino Transferase Today Z79.899 - Other intermediate card tender (current) drug therapy C Reactive Protein 1 Week M05.9 - Rheumatoid arthritis with rheumatoid factor, unspecified Erythrocyte Sedimentation Rate 1 Week M05.9 - Rheumatoid arthritis with rheumatoid factor, unspecified Complete Blood Count Auto Diff 1 Week M05.9 - Rheumatoid arthritis with rheumatoid factor, unspecified, Z79.899 - Other intermediate card tender (current) drug therapy Creatinine Today M05.9 - Rheumatoid arthritis with rheumatoid factor, unspecified, Z79.899 - Other intermediate card tender (current) drug therapy Medications: Changed From prednisone for 3 days in event of a flare up of pains 10 mg (2 x 5 mg) PO DAILY 30 tabs 0RF M05.9 - Rheumatoid arthritis with rheumatoid factor, unspecified To prednisone for 3 days in event of a flare up of pains 10 mg PO .prn M05.9 - Rheumatoid arthritis with rheumatoid factor, unspecified Coding Level of Care Code Est Pt Level 4 (27564) Diagnoses Elevated transaminase measurement R74.01 Long-term use of immunosuppressant medication Z79.899 Osteoarthritis of knees, bilateral M17.0 Seropositive rheumatoid arthritis M05.9
[2022-12-24 10:42] VITALS: BP 116/78; PULSE 76; TEMP 36.3; O2SAT 98; BMI 26.5
== END 2022-12-24 11:16 | disposition home or self-care (01) ==
PROVIDERS: PCP Physician Assistant; Visit Provider Internal Medicine Rheumatology
DX: M05.79 Rheumatoid arthritis with rheumatoid factor of multiple sites without organ or systems involvement (principal); R74.01 Elevation of levels of liver transaminase levels; Z79.899 Other long term (current) drug therapy; M17.0 Bilateral primary osteoarthritis of knee
CPT/HCPCS: 99214

== ENCOUNTER → 2022-12-24 10:19 | Outpatient (BNVA) | payer OTHER, SELFPAY | PROVIDERS: PCP Physician Assistant; Visit Provider Internal Medicine Rheumatology | DX: M05.9 Rheumatoid arthritis with rheumatoid factor, unspecified (principal); M17.0 Bilateral primary osteoarthritis of knee; R74.01 Elevation of levels of liver transaminase levels; Z79.69 Long term (current) use of other immunomodulators and immunosuppressants | CPT/HCPCS: 99212 ==

== ENCOUNTER 2023-02-23 11:59 | Outpatient (REF) | payer OTHER, SELFPAY ==
[2023-02-23 13:22] LABS: MANUAL DIFF FLAG NO
[2023-02-23 13:55] LABS: Basophils Percent Auto 0.6 % (0-2); Eosinophils Absolute Auto 0.1 X10*3/uL (0.0-0.4); Eosinophils Percent Auto 1.2 % (0-4); Hematocrit 36.4 % (37.0-47.0); Hemoglobin 11.9 g/dl (12.0-16.0); Imm Gran Abs Auto 0.01 X10*3/uL (0.00-0.03); Imm Gran Pct Auto 0.2 % (0.0-0.4); Lymphocytes Absolute Auto 2.1 X10*3/uL (1.2-4.9); Lymphocytes Percent Auto 41.7 % (20-40); Mean Corpuscular HGB Conc 32.7 g/dl (31.0-35.0); Mean Corpuscular Hemoglobin 29.2 pg (27.0-33.0); Mean Corpuscular Volume 89.4 fL (80.0-98.0); Mean Platelet Volume 10.7 fL (9.4-12.3); Monocytes Absolute Auto 0.4 X10*3/uL (0.1-1.2); Monocytes Percent Auto 8.3 % (2-11); Neutrophils Absolute Auto 2.4 x10*3/uL (2.0-8.3); Platelet Count 266 X10*3/uL (160-400); Red Blood Count 4.07 X10*6/uL (4.20-5.50)
[2023-02-23 14:03] LABS: C Reactive Protein < 0.10 mg/dL (< or = 0.50)
[2023-02-23 15:23] LABS: Erythrocyte Sedimentation Rate 14 MM/HR (0-20)
[2023-02-24 11:19] LABS: Alanine Aminotransferase 29 U/L (0-31); Aspartate Amino Transferase 34 U/L (5-31); Estimated Glomerular Filt Rate > 60
== END 2023-02-23 12:00 | disposition home or self-care (01) ==
LOC: HO.10HDL 11:59
PROVIDERS: Visit Provider Internal Medicine Rheumatology
DX: M05.9 Rheumatoid arthritis with rheumatoid factor, unspecified (principal); Z79.899 Other long term (current) drug therapy
CPT/HCPCS: 36415; 82565; 84450; 84460; 85025; 85652; 86140

== ENCOUNTER 2023-02-24 10:25 | Outpatient (AMB) | payer OTHER, SELFPAY ==
--- NOTE | 2023-02-24 10:28 | A.OFFVIS_ITS ---
"Intake Vital Signs 02/24/23 10:29 Height 5 ft Weight 141 lb 1.533 oz BMI 27.6 BP 100/60 Blood Pressure Location Lt brachial Position Sitting Pulse 82 Pulse Source Pulse Oximeter Temp 97.5 F Temp Source Skin Pulse Oximetry (%) 100 Oxygen Delivery Method Room Air Intake Visit Reasons: ra Intake Note: Patient presents today to follow up on lab results and RA. 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 She remains on Rinvoq 15 mg weekly, piroxicam 10 mg b.i.d., and occasional prednisone 5 mg. She said in the past month she maybe took the prednisone once, she takes 2 tablets if she has a bad day. There do not appear to be any side effects she says with her current treatment. She remains on the atorvastatin for her hyperlipidemia. This had developed when she went on the Xeljanz in the past. [facility] Medical History (Updated 12/24/22 @ 13:28 by Vasyl Sousa MD) Vitamin D deficiency Long-term use of immunosuppressant medication Osteoarthritis of knees, bilateral Hyperlipidemia History of latent tuberculosis Cervical radicular pain Seropositive rheumatoid arthritis Social History Household Members: Family Housing: [facility] Are you a primary career developer to a significant other at home: No Do you presently have visiting nurse or other home services: No 75 years or older and lives alone: No Alcohol intake: never Patient Tobacco Use Status: Never used Tobacco e-Cigarette/Vaping Use: Never Used service: No Current occupational status: employed Current occupation: [employer] Const Details: Negative for appetite change, weight change, fever, chills, malaise and fatigue Eyes Details: Negative for vision change, dry eyes,headaches and dizziness ENT Details: Negative for hearing change, tinnitus, oral ulcer, nose bleeds and oral dryness. Card Details: Negative chest pain, edema and syncope Resp Details: Negative for SOB, cough and wheezing GI Details: Negative indigestion/heartburn, nausea, abdominal pain, bowel changes, diarrhea, constipation and bloody stool. Skin/Breast Details: Negative for itching, rash, hives, Raynaud's symptoms, sun sensitivity, and skin cancer Oumar/Lymph Details: Negative for excessive bruising or bleeding. Physical Exam Vital Signs: Last Vital Signs Temp 97.5 F 02/24/23 10:29 Pulse 82 02/24/23 10:29 BP 100/60 02/24/23 10:29 Pulse Ox 100 02/24/23 10:29 Oxygen Delivery Method Room Air 02/24/23 10:29 BMI result Body Mass Index 27.6 APPEARANCE: Patient in no acute distress EYES no redness, pupils equal and reactive to light, eyelids normal ABD: Normal bowel sounds, no organomegaly, masses or tenderness. EXTREMITIES: No edema, no calf tenderness, normal peripheral pulses. SKIN: No inflammatory or neoplastic lesions. Normal color and turgor JOINT EXAM: Cervical Spine:.? Full range of motion without pain; no tenderness. Thoracic Spine:.? No scoliosis.? No tenderness on palpation. Lumbar Spine:.? Alignment normal.? Full range of motion without pain, no tenderness. Chest Wall:.? No tenderness, swelling, increased warmth or erythema. Hands:? Right:? Mild swelling of the 2nd MCP joint. There is no tenderness in the MCP joints today. There is also some mild thickening at the 2nd PIP with no tenderness. She has some early swan necking at the 2nd through 4th PIP joints. These are not tender today.? No flexor tendon triggering, tenderness or thenar atrophy.? She is seemingly able to extend the 4th and 5th fingers today. Left: Mild swelling without tenderness at the 2nd and 4th MCP joints. Some slight thickening and but no tenderness at the 5th PIP joint. Other PIP's seem okay without tenderness or swelling..? There is some slight swan necking evident in the 3rd and 4th PIP is but these are not tender or swollen today.? No thenar atrophy, flexor tendon triggering or sensory loss. Wrists:? Right:? There is slight pain with flexion at 10 degrees or extension at 45 degrees and motion is limited at those points.? There is slight flexion deformity, minimal dorsal tenderness, and soft tissue swelling; her wrist is not red or warm.? Left :? There is normal pain-free range of motion without tenderness, swelling, increased warmth or erythema. Elbows:? Left:? She lacks about 5 degrees of full extension with some slight thickening and tenderness over the joint space.? Right:pain-free range of motion without tenderness, swelling, increased warmth or erythema. Shoulders:.??Right: No discomfort with extremes of normal range of motion. Slight anterior tenderness. No adenopathy or weakness. Left: Full range of motion without pain. No tenderness, weakness, swelling, increased warmth or erythema. Hips:.? Full range of motion without pain. Hip bursa:.? No tenderness. Knees:? Right:? There is mild discomfort with extremes of flexion or extension. There is slight medial compartment tenderness without effusion. There is some mild patellofemoral crepitus without redness or warmth.? There is no popliteal tenderness or swelling.? Left:? Mild pain flexion beyond 90 degrees or with attempts at full extension.? There is mild medial and lateral tenderness with no effusion, redness or warmth.? There is mild patellofemoral crepitus.? She has no popliteal swelling or tenderness. Ankles:? Left:? No tenderness with mild swelling.? No redness or warmth.? Right:? no discomfort with extremes of inversion or eversion and some minimal tenderness but no swelling, redness or warmth.? Feet:? Right:? Normal pain-free range of motion with some slight tenderness at the 1st 2 MTP joints but no swelling or redness is notable.? Left: Normal pain- free range of motion with tenderness across the instep.? No swelling, redness or warmth. ??? 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 RF and CCP positive Low dose prednisone started 09/04 - side effects with methotrexate (oral ulcers, eye twitching). Humira started October 04, 2014 stopped after two doses due to headache, nausea, lightheadedness Cimzia since 03/06, sulfasalazine added 06/05 - not tolerated and stopped 09/05. Cimzia stopped as well 09/05 due to ineffectiveness Positive TB test - quantiferon 09/05 and isoniazid started Xeljanz started 01/27/16 - changed to Rinvoq due to faiing effectiveness 11/2021. R 4th and 5th tendon rupture. 07/2022 back on Xeljanz because she felt the Rinvoq gave abdominal pain, chest pain, and rectal bleeding. 11/2022 -back on Rinvoq; xeljanz not effective(Gi symptoms felt due to colonic purging supplements) Code(s): M05.9 - Rheumatoid arthritis with rheumatoid factor, unspecified Plan The synovitis today from her RA seems to be well controlled with current treatment. She has a few joints that have suffered unfortunately some structural damage so they may continue to bother her for the coming years. This includes the right wrist and the knees. She has gained a few lb and I warned her about weight gain as it may worsen her difficulty with her knees. The transaminases had been elevated at the last check. When she arrived in the [facility] the lab had not perform the test at ordered so we asked them to do it. It has come back in the last hour so so we will let her know that they look to be okay. There is still mild elevation of one of them but it is minimal and could be related to her weight gain. We will recheck Chem panel, CBC and acute phase reactants before next visit in about 3 months. She will continue with the Rinvoq, peroxide cam and occasional prednisone as above. Addendum: Labs have come back: Laboratory Tests 12/23/22 02/23/23 14:00 12:02 AST 49 H 34 H ALT 67 H 29 Orders: Orders Erythrocyte Sedimentation Rate 1 Month M05.9 - Rheumatoid arthritis with rheumatoid factor, unspecified, Z79.899 - Other chcf (current) drug therapy Complete Blood Count Auto Diff 1 Month M05.9 - Rheumatoid arthritis with rheumatoid factor, unspecified, Z79.899 - Other chcf (current) drug therapy Comprehensive Met. 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
[2023-02-24 10:29] VITALS: BP 100/60; PULSE 82; TEMP 36.4; O2SAT 100; BMI 27.6
== END 2023-02-24 11:11 | disposition home or self-care (01) ==
PROVIDERS: PCP Physician Assistant; Visit Provider Internal Medicine Rheumatology
DX: M05.79 Rheumatoid arthritis with rheumatoid factor of multiple sites without organ or systems involvement (principal); Z79.899 Other long term (current) drug therapy
CPT/HCPCS: 99214

== ENCOUNTER → 2023-02-24 10:25 | Outpatient (BNVA) | payer OTHER, SELFPAY | PROVIDERS: PCP Physician Assistant; Visit Provider Internal Medicine Rheumatology | DX: M05.9 Rheumatoid arthritis with rheumatoid factor, unspecified (principal); Z79.899 Other long term (current) drug therapy | CPT/HCPCS: 99212 ==

== ENCOUNTER 2023-05-26 08:21 | Outpatient (REF) | payer OTHER, SELFPAY ==
[2023-05-26 11:19] LABS: MANUAL DIFF FLAG NO
[2023-05-26 11:24] LABS: Basophils Percent Auto 0.6 % (0-2); Eosinophils Absolute Auto 0.1 X10*3/uL (0.0-0.4); Eosinophils Percent Auto 1.2 % (0-4); Hematocrit 33.7 % (37.0-47.0); Hemoglobin 11.1 g/dl (12.0-16.0); Imm Gran Abs Auto 0.02 X10*3/uL (0.00-0.03); Imm Gran Pct Auto 0.3 % (0.0-0.4); Lymphocytes Absolute Auto 2.6 X10*3/uL (1.2-4.9); Mean Corpuscular HGB Conc 32.9 g/dl (31.0-35.0); Mean Corpuscular Hemoglobin 29.8 pg (27.0-33.0); Mean Corpuscular Volume 90.6 fL (80.0-98.0); Mean Platelet Volume 9.9 fL (9.4-12.3); Monocytes Absolute Auto 0.4 X10*3/uL (0.1-1.2); Monocytes Percent Auto 6.6 % (2-11); Neutrophils Absolute Auto 3.4 x10*3/uL (2.0-8.3); Neutrophils Percent Auto 51.3 % (45-73); Platelet Count 320 X10*3/uL (160-400); Red Blood Count 3.72 X10*6/uL (4.20-5.50); Red Cell Distribution Width 14.7 % (11.0-16.0); White Blood Count 6.5 X10*3/uL (4.8-10.8)
[2023-05-26 12:03] LABS: Erythrocyte Sedimentation Rate 14 MM/HR (0-20)
[2023-05-26 12:28] LABS: Alanine Aminotransferase 40 U/L (0-31); Alkaline Phosphatase 138 U/L (39-117); Anion Gap 10 (12-20); Aspartate Amino Transferase 35 U/L (5-31); Bilirubin Total 0.4 mg/dL (0.0-1.0); Blood Urea Nitrogen 26 mg/dL (9-16); C Reactive Protein < 0.10 mg/dL (< or = 0.50); Carbon Dioxide 25 mmol/L (22-29); Chloride 108 mmol/L (96-108); Estimated Glomerular Filt Rate > 60; Glucose Random 89 mg/dL (60-115); Potassium 4.1 mmol/L (3.3-5.1); Sodium 139 mmol/L (135-145); Total Protein 6.9 g/dL (6.5-8.0)
== END 2023-05-26 08:22 | disposition home or self-care (01) ==
LOC: HO.10HDL 08:21
PROVIDERS: Visit Provider Internal Medicine Rheumatology
DX: M05.9 Rheumatoid arthritis with rheumatoid factor, unspecified (principal); Z79.899 Other long term (current) drug therapy
CPT/HCPCS: 36415; 80053; 85025; 85652; 86140

== ENCOUNTER 2023-05-27 10:23 | Outpatient (AMB) | payer OTHER, SELFPAY ==
[2023-05-27 10:36] VITALS: BP 124/72; PULSE 81; O2SAT 100; BMI 29.2
--- NOTE | 2023-05-27 10:36 | A.OFFVIS_ITS ---
Intake Vital Signs 05/27/23 10:36 Height 5 ft Weight 149 lb 7.574 oz BMI 29.2 BP 124/72 Blood Pressure Location Rt brachial Position Sitting Pulse 81 Pulse Source Pulse Oximeter Pulse Oximetry (%) 100 Oxygen Delivery Method Room Air Intake Visit Reasons: RA with DR. Jacqueline Tamayo Note: Patient last seen 02/24/23 presents today for follow up and test results. States I have a lot of problems with that medication Rinvoq Reports bleed Everytime I go to bathroom I'm bleeding Also reports chest heaviness, swelling and headaches while on Rinvoq. She stopped using it, then tried again and same problem. Last time she took it was a week ago. States she feels better now. Has 1 bottle left of Xeljanz at home and she started taking that 3 days ago. Habilitation Assistant Required: No Accompanied by: Self / Same As Patient Allergies morphine Allergy (Unknown, Verified 05/27/23 10:40) Unknown Medication List - Last Reconciled 05/27/23 by Tyson Arriaga MD atorvastatin 20 mg PO DAILY piroxicam 10 mg PO BID prednisone 5 mg PO .prn upadacitinib ER (Rinvoq) 15 mg PO DAILY HPI HPI Comments History of Present Illness Details 47-year-old female with seropositive def orming RA returns for follow-up. Patient states that she has been having a lot problems with Rinvoq. She has been having blood when she wipes. As well as abdominal pain, chest heaviness. She states that she discontinued Xeljanz about a week ago with resolution of those symptoms. She takes prednisone 5 mg about once a week as needed she also takes piroxicam 10 mg Twice daily. She has not been evaluated by gastroenter ologist. She would like to go back on Xeljanz. She states that she did not have such side effects with Xeljanz but I explained to patient that she was having synovitis on Xeljanz and Dr. Sousa switched it. Her arthritis is doing well overall. Most recent history by Dr. Sousa 02/2023: The patient returns for evaluation of her seropositive rheumatoid arthritis. She remains on Rinvoq 15 mg weekly, piroxicam 10 mg b.i.d., and occasional prednisone 5 mg. She said in the past month she maybe took the prednisone once, she takes 2 tablets if she has a bad day. There do not appear to be any side effects she says with her current treatment. She remains on the atorvastatin for her hyperlipidemia. This had developed when she went on the Xeljanz in the past. [facility] Medical History Vitamin D deficiency Long-term use of immunosuppressant medication Osteoarthritis of knees, bilateral Hyperlipidemia History of latent tuberculosis Cervical radicular pain Seropositive rheumatoid arthritis Social History Household Members: Family [facility]: [facility] Are you a primary customer care assistant to a significant other at home: No Do you presently have visiting nurse or other home services: No 75 years or older and lives alone: No Alcohol intake: never Patient Tobacco Use Status: Never used Tobacco e-Cigarette/Vaping Use: Never Used service: No Current occupational status: employed Current occupation: [employer] GI Reports bloating and Reports hematochezia Musc Denies arthralgias, Denies joint swelling and Denies stiffness Physical Exam Vital Signs: Last Vital Signs Pulse 81 05/27/23 10:36 BP 124/72 05/27/23 10:36 Pulse Ox 100 05/27/23 10:36 Oxygen Delivery Method Room Air 05/27/23 10:36 BMI result Body Mass Index 29.2 APPEARANCE: Patient in no acute distress EYES no redness, pupils equal and reactive to light, eyelids normal ABD: Normal bowel sounds, no organomegaly, masses or tenderness. EXTREMITIES: No edema, no calf tenderness, normal peripheral pulses. SKIN: No inflammatory or neoplastic lesions. Normal color and turgor JOINT EXAM: Cervical Spine:.? Full range of motion without pain; no tenderness. Thoracic Spine:.? No scoliosis.? No tenderness on palpation. Lumbar Spine:.? Alignment normal.? Full range of motion without pain, no tenderness. Chest Wall:.? No tenderness, swelling, increased warmth or erythema. Hands:? Right:? Mild swelling of the 2nd MCP joint. There is no tenderness in the MCP joints today. There is also some mild thickening at the 2nd PIP with no tenderness. She has some early swan necking at the 2nd through 4th PIP joints. These are not tender today.? No flexor tendon triggering, tenderness or thenar atrophy.? She is seemingly able to extend the 4th and 5th fingers today. Left: Mild swelling without tenderness at the 2nd and 4th MCP joints. Some slight thickening and but no tenderness at the 5th PIP joint. Other PIP's seem okay without tenderness or swelling..? There is some slight swan necking evident in the 3rd and 4th PIP is but these are not tender or swollen today.? No thenar atrophy, flexor tendon triggering or sensory loss. Wrists:? Right:? There is slight pain with flexion at 10 degrees or extension at 45 degrees and motion is limited at those points.? There is slight flexion deformity, minimal dorsal tenderness, and soft tissue swelling; her wrist is not red or warm.? Left :? There is normal pain-free range of motion without tenderness, swelling, increased warmth or erythema. Elbows:? Left:? She lacks about 5 degrees of full extension with some slight thickening and tenderness over the joint space.? Right:pain-free range of motion without tenderness, swelling, increased warmth or erythema. Shoulders:.??Right: No discomfort with extremes of normal range of motion. Slight anterior tenderness. No adenopathy or weakness. Left: Full range of motion without pain. No tenderness, weakness, swelling, increased warmth or erythema. Hips:.? Full range of motion without pain. Hip bursa:.? No tenderness. Knees:? Right:? There is mild discomfort with extremes of flexion or extension. There is slight medial compartment tenderness without effusion. There is some mild patellofemoral crepitus without redness or warmth.? There is no popliteal tenderness or swelling.? Left:? Mild pain flexion beyond 90 degrees or with attempts at full extension.? There is mild medial and lateral tenderness with no effusion, redness or warmth.? There is mild patellofemoral crepitus.? She has no popliteal swelling or tenderness. Ankles:? Left:? No tenderness with mild swelling.? No redness or warmth.? Right:? no discomfort with extremes of inversion or eversion and some minimal tenderness but no swelling, redness or warmth.? Feet:? Right:? Normal pain-free range of motion with some slight tenderness at the 1st 2 MTP joints but no swelling or redness is notable.? Left: Normal pain- free range of motion with tenderness across the instep.? No swelling, redness or warmth. ??? Const General: cooperative, healthy appearing and comfortable Nutritional Appearance: overweight Orientation/consciousness: patient oriented x3 Limitations: no limitations HEENT Head: Yes normocephalic and Yes atraumatic Mouth: moist mucous membranes Resp Effort & Inspection: normal respiratory effort and able to speak in complete sentences Auscultation: clear to auscultation bilaterally Cardio Rate: regular rate GI Palpation (GI): Soft to palpation Neuro General: patient oriented x3 Extrem Other: Prominent right ulnar styloid [place]-neck deformity of right 2nd, 3rd and 4th fingers Left 3rd and 4th swan-neck deformities No active synovitis today of hands and wrists Bilateral knee warmth. And pain with flexion and full extension no ankle swelling or tenderness bilaterally Assessment & Plan Assessment & Plan (1) Seropositive rheumatoid arthritis: Comment: Dx 03/2014 +++RF +++CCP deforming erosive 09/04 - side effects with MTX (oral ulcers, eye twitching). Humira started October 04, 2014 stopped after two doses due to headache, nausea, lightheadedness Cimzia since 03/06, sulfasalazine added 06/05 - not tolerated and stopped 09/05. Cimzia stopped as well 09/05 due to ineffectiveness Positive TB test - quantiferon 09/05 and isoniazid started Xeljanz started 01/27/16 - changed to Rinvoq due to failing effectiveness 11/2021. R 4th and 5th tendon rupture. 07/2022 back on Xeljanz because she felt the Rinvoq gave abdominal pain, chest pain, and rectal bleeding. 11/2022 -back on Rinvoq; xeljanz not effective(Gi symptoms felt due to colonic purging supplements) Code(s): M05.9 - Rheumatoid arthritis with rheumatoid factor, unspecified Plan: 47-year-old female with seropositive erosive RA returns for follow-up. She used to follow-up with Dr. Sousa. This is her 1st visit with me. Patient stopped Rinvoq 7-10 days ago due to GI symptoms with GI upset, blood when she wipes, chest heaviness. I referred patient to Gastroenterology to evaluate those symptoms. Patient would like to go back on Xeljanz as it did not give her such side effects, however patient was on Xeljanz she was having progressive synovitis l eading to tendon rupture. I had long conversation with patient today. Discussed with patient that we need to change DMARDs. Given that she could not tolerate Rinvoq. At this point had oral ulcers with methotrexate, sulfasalazine not tolerated due to GI upset, Humira caused nausea, headaches, Cimzia was ineffective Xeljanz ineffective, Rinvoq caused multiple GI side effects Will need to change mechanism of action. Discussed risks and benefits of Orencia. Patient agreed to proceed. Will start prior authorization for Orencia She can continue with prednisone 5 mg weekly. 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 (3) Elevated transaminase measurement: Code(s): R74.01 - Elevation of levels of liver transaminase levels Plan: Referred to GI (4) Rectal bleeding: Code(s): K62.5 - Hemorrhage of anus and rectum Plan: Referred to GI Plan I spent 47 minutes reviewing patient's chart, evaluating patient, ordering diagnostic workup, counseling patient and documenting in the chart Orders: Orders C Reactive Protein 2 Months M05.9 - Rheumatoid arthritis with rheumatoid factor, unspecified Hepatitis A,B,C Profile 2 Months Z11.59 - Encounter for screening for other viral diseases Complete Blood Count Auto Diff 2 Months M05.9 - Rheumatoid arthritis with rheumatoid factor, unspecified Comprehensive Met. Panel 2 Months M05.9 - Rheumatoid arthritis with rheumatoid factor, unspecified Erythrocyte Sedimentation Rate 2 Months M05.9 - Rheumatoid arthritis with rheumatoid factor, unspecified Referrals Gastroenterology Referral K62.5 - Hemorrhage of anus and rectum, R74.01 - Elevation of levels of liver transaminase levels Medications: New prednisone for 3 days in event of a flare up of pains 5 mg PO .prn 30 tabs 0RF M05.9 - Rheumatoid arthritis with rheumatoid factor, unspecified Changed From prednisone for 3 days in event of a flare up of pains 5 mg PO .prn 30 tabs 0RF M05.9 - Rheumatoid arthritis with rheumatoid factor, unspecified To prednisone 5 mg PO DAILY 3 days PRN 30 tabs 0RF flare ups of pain M05.9 - Rheumatoid arthritis with rheumatoid factor, unspecified Coding Level of Care Code Est Pt Level 4 (92712) Diagnoses Seropositive rheumatoid arthritis M05.9 Long-term use of immunosuppressant medication Z79.899 Elevated transaminase measurement R74.01 Rectal bleeding K62.5
== END 2023-05-27 11:33 | disposition home or self-care (01) ==
PROVIDERS: PCP Physician Assistant; Visit Provider Student in an Organized Health Care Education/Training Program
DX: M05.79 Rheumatoid arthritis with rheumatoid factor of multiple sites without organ or systems involvement (principal); Z79.899 Other long term (current) drug therapy; R74.01 Elevation of levels of liver transaminase levels; K62.5 Hemorrhage of anus and rectum
CPT/HCPCS: 99214

== ENCOUNTER → 2023-05-27 10:23 | Outpatient (BNVA) | payer OTHER, SELFPAY | PROVIDERS: PCP Physician Assistant; Visit Provider Student in an Organized Health Care Education/Training Program | DX: M05.9 Rheumatoid arthritis with rheumatoid factor, unspecified (principal); R74.01 Elevation of levels of liver transaminase levels; K62.5 Hemorrhage of anus and rectum; Z79.899 Other long term (current) drug therapy | CPT/HCPCS: 99212 ==

== ENCOUNTER 2023-08-04 07:40 | Outpatient (AMB) | payer OTHER, SELFPAY ==
--- NOTE | 2023-08-04 07:53 | A.OFFVIS_ITS ---
Vital Signs 08/04/23 07:54 Height 5 ft Weight 152 lb 8.958 oz BMI 29.8 BP 124/68 Blood Pressure Location Rt brachial Position Sitting Pulse 82 Pulse Source Pulse Oximeter Pulse Oximetry (%) 100 Oxygen Delivery Method Room Air Intake Visit Reasons: RA/CM Intake Note: Pt last seen 05/27/23 presents today after seeing urgent care C/O dizziness, reaction to Orencia 4 weeks ago. 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 Last visit we switched Rinvoq to Orencia due to effects of GI discomfort, diarrhea and blood when she wipes. She states that Orencia is not working well for her. She took about 6 doses and she noticed increased pain and she had to use prednisone 10 mg daily. She is also having side effects with Orencia. She went to urgent care 06/20 due to dizziness, lightheadedness and an episode of falling. She attributes these symptoms to Orencia. In urgent care they thought it was a viral infection. Patient stopped Cimzia 2-3 weeks ago and started taking Rinvoq from an old prescription. She states that Rinvoq works quite well for her and she no longer has the GI side effects. She now remembers that she was taking Dulcolax regularly and that probably was 1 of the reasons of her diarrhea. She now also stopped prednisone Most recent history by Dr. Sousa 02/2023: The patient returns for evaluation of her seropositive rheumatoid arthritis. She remains on Rinvoq 15 mg weekly, piroxicam 10 mg b.i.d., and occasional prednisone 5 mg. She said in the past month she maybe took the prednisone once, she takes 2 tablets if she has a bad day. There do not appear to be any side effects she says with her current treatment. She remains on the atorvastatin for her hyperlipidemia. This had developed when she went on the Xeljanz in the past. [facility] Medical History Vitamin D deficiency Long-term use of immunosuppressant medication Osteoarthritis of knees, bilateral Hyperlipidemia History of latent tuberculosis Cervical radicular pain Seropositive rheumatoid arthritis Social History Household Members: [facility] Are you a primary care director rn to a significant other at home: No Do you presently have visiting nurse or other home services: No 75 years or older and lives alone: No Alcohol intake: never Patient Tobacco Use Status: Never used Tobacco e-Cigarette/Vaping Use: Never Used service: No Current occupational status: employed Current occupation: [employer] Denies arthralgias, Denies joint swelling and Denies stiffness Physical Exam Const General: cooperative, healthy appearing and comfortable Nutritional Appearance: overweight Orientation/consciousness: patient oriented x3 Limitations: no limitations HEENT Head: Yes normocephalic and Yes atraumatic Mouth: moist mucous membranes Resp Effort & Inspection: normal respiratory effort and able to speak in complete sentences Auscultation: clear to auscultation bilaterally Cardio Rate: regular rate GI Palpation (GI): Soft to palpation Neuro General: patient oriented x3 Extrem Other: Prominent right ulnar styloid [place]-neck deformity of right 2nd, 3rd and 4th fingers Left 3rd and 4th swan-neck deformities No active synovitis today of hands and wrists Bilateral knee warmth. And pain with flexion and full extension no ankle swelling or tenderness bilaterally Assessment & Plan Assessment & Plan (1) Seropositive rheumatoid arthritis: Comment: Dx 03/2014 +++RF +++CCP deforming erosive 09/04 - side effects with MTX (oral ulcers, eye twitching). Humira started October 04, 2014 stopped after two doses due to headache, nausea, lightheadedness Cimzia since 03/06, sulfasalazine added 06/05 - not tolerated and stopped 09/05. Cimzia stopped as well 09/05 due to ineffectiveness Positive TB test - quantiferon 09/05 and isoniazid started Xeljanz started 01/27/16 - changed to Rinvoq due to failing effectiveness 11/2021. R 4th and 5th tendon rupture. 07/2022 back on Xeljanz because she felt the Rinvoq gave abdominal pain, chest pain, and rectal bleeding. 11/2022 -back on Rinvoq; xeljanz not effective(Gi symptoms felt due to colonic purging supplements) Rinvoq DC 05/2023 due to diarrhea, blood in stool Orencia 05/2023 not effective + dizziness, lightheadedness, falls Code(s): M05.9 - Rheumatoid arthritis with rheumatoid factor, unspecified Category: Medical Plan: 48-year-old female with seropositive erosive RA returns for follow-up. Patient had been doing reasonably well on Rinvoq last visit when she was complaining of chest heaviness, diarrhea, GI upset, blood when she wipes. We switched her to Orencia. Patient took Orencia for 6 doses but it was not effective. She needed to use prednisone 10 mg daily. She was also having dizziness, lightheadedness, she went to urgent care and was diagnosed with a viral syndrome. Patient restarted Rinvoq 2-3 weeks ago from an old prescription. It is working quite well for her. There is no synovitis on exam today. She stopped taking prednisone. She no longer has diarrhea. Likely her diarrhea was please partly caused by regular use of Dulcolax. Will need to switch patient back to Rinvoq. Had a long conversation with patient about different side effects with medications and the importance of sticking with the medication that is most effective. Rinvoq seems to be most effective. Will start prior authorization for Rinvoq 15 mg daily Labs before next visit in 10 weeks (2) Long-term use of immunosuppressant medication: Code(s): Z79.899 - Other terminal operations manager (current) drug therapy Category: Medical Plan: Monitor safety lab (3) Elevated transaminase measurement: Code(s): R74.01 - Elevation of levels of liver transaminase levels Category: Medical Plan: Referred to GI. She has an appointment next month (4) Rectal bleeding: Code(s): K62.5 - Hemorrhage of anus and rectum Category: Medical Plan: Referred to GI. She has an appointment next month Plan I spent 47 minutes reviewing patient's chart, evaluating patient, ordering diagnostic workup, counseling patient and documenting in the chart Orders: Orders Comprehensive Met. Panel 10 Weeks M05.9 - Rheumatoid arthritis with rheumatoid factor, unspecified, R74.01 - Elevation of levels of liver transaminase levels, Z79.899 - Other terminal operations manager (current) drug therapy Complete Blood Count Auto Diff 10 Weeks M05.9 - Rheumatoid arthritis with rheumatoid factor, unspecified, R74.01 - Elevation of levels of liver transaminase levels, Z79.899 - Other terminal operations manager (current) drug therapy C Reactive Protein 10 Weeks M05.9 - Rheumatoid arthritis with rheumatoid factor, unspecified, R74.01 - Elevation of levels of liver transaminase levels, Z79.899 - Other terminal operations manager (current) drug therapy Erythrocyte Sedimentation Rate 10 Weeks M05.9 - Rheumatoid arthritis with rheumatoid factor, unspecified, R74.01 - Elevation of levels of liver transaminase levels, Z79.899 - Other terminal operations manager (current) drug therapy Medications: New Rinvoq ER (upadacitinib) Lot: [id number] Exp : 12/12/24 15 mg PO DAILY 30 tabs 0RF NS Discontinued Orencia ClickJect (abatacept) Discontinued Reason: Doctor's Order 125 mg subcut QWEEK 4 mL 2RF NS Coding Level of Care Code Est Pt Level 5 (59107) Diagnoses Seropositive rheumatoid arthritis M05.9 Long-term use of immunosuppressant medication Z79.899 Elevated transaminase measurement R74.01 Rectal bleeding K62.5
[2023-08-04 07:54] VITALS: BP 124/68; PULSE 82; O2SAT 100; BMI 29.8
== END 2023-08-04 08:15 | disposition home or self-care (01) ==
PROVIDERS: PCP Physician Assistant; Visit Provider Student in an Organized Health Care Education/Training Program
DX: M05.79 Rheumatoid arthritis with rheumatoid factor of multiple sites without organ or systems involvement (principal); Z79.899 Other long term (current) drug therapy; R74.01 Elevation of levels of liver transaminase levels; K62.5 Hemorrhage of anus and rectum
CPT/HCPCS: 99215

== ENCOUNTER → 2023-08-04 07:40 | Outpatient (BNVA) | payer OTHER, SELFPAY | PROVIDERS: PCP Physician Assistant; Visit Provider Student in an Organized Health Care Education/Training Program | DX: M05.9 Rheumatoid arthritis with rheumatoid factor, unspecified (principal); R74.01 Elevation of levels of liver transaminase levels; K62.5 Hemorrhage of anus and rectum; Z79.899 Other long term (current) drug therapy | CPT/HCPCS: 99212 ==

== ENCOUNTER 2023-10-26 11:24 | Outpatient (REF) | payer OTHER, SELFPAY ==
[2023-10-26 11:43] LABS: MANUAL DIFF FLAG NO
[2023-10-26 12:53] LABS: Basophils Percent Auto 0.4 % (0-2); Eosinophils Percent Auto 0.8 % (0-4); Hematocrit 35.7 % (37.0-47.0); Hemoglobin 11.5 g/dl (12.0-16.0); Imm Gran Abs Auto 0.01 X10*3/uL (0.00-0.03); Imm Gran Pct Auto 0.2 % (0.0-0.4); Lymphocytes Absolute Auto 1.7 X10*3/uL (1.2-4.9); Lymphocytes Percent Auto 31.8 % (20-40); Mean Corpuscular HGB Conc 32.2 g/dl (31.0-35.0); Mean Corpuscular Hemoglobin 29.2 pg (27.0-33.0); Mean Corpuscular Volume 90.6 fL (80.0-98.0); Mean Platelet Volume 10.6 fL (9.4-12.3); Monocytes Absolute Auto 0.6 X10*3/uL (0.1-1.2); Monocytes Percent Auto 10.8 % (2-11); Neutrophils Absolute Auto 2.9 x10*3/uL (2.0-8.3); Platelet Count 257 X10*3/uL (160-400); Red Blood Count 3.94 X10*6/uL (4.20-5.50); Red Cell Distribution Width 16.4 % (11.0-16.0); White Blood Count 5.2 X10*3/uL (4.8-10.8)
[2023-10-26 13:34] LABS: Erythrocyte Sedimentation Rate 14 MM/HR (0-20)
[2023-10-26 13:55] LABS: Alanine Aminotransferase 26 U/L (0-31); Albumin Level 4.2 g/dL (3.5-5.0); Alkaline Phosphatase 155 U/L (39-117); Anion Gap 11 (12-20); Aspartate Amino Transferase 31 U/L (5-31); Bilirubin Total 0.3 mg/dL (0.0-1.0); Blood Urea Nitrogen 24 mg/dL (9-16); C Reactive Protein < 0.04 mg/dL (< or = 0.50); Calcium 9.5 mg/dL (8.4-10.2); Carbon Dioxide 25 mmol/L (22-29); Chloride 109 mmol/L (96-108); Estimated Glomerular Filt Rate > 60; Glucose Random 89 mg/dL (60-115); Potassium 4.2 mmol/L (3.3-5.1); Sodium 141 mmol/L (135-145); Total Protein 7.1 g/dL (6.5-8.0)
[2023-10-27 08:22] LABS: HBS Num1 0.51 mIU/mL (0-7.99); HBsAGNum1 0.37 S/CO (0.00-0.99); Hepatitis A Antibody IgM 0.17 Index (0-0.79); Hepatitis B Core Antibody Nonreactive (Nonreactive); Hepatitis B Surface Antigen Negative (Negative); ~HepC Num1 0.16 S/CO (0.00-0.79); ~Hepatitis A Antibody IgM Nonreactive (Nonreactive); ~Hepatitis B Surface Antibody NONREACTIVE (Nonreactive); ~Hepatitis C Antibody Nonreactive (Nonreactive)
== END 2023-10-26 11:25 | disposition home or self-care (01) ==
LOC: HO.LAB 11:24
PROVIDERS: PCP Internal Medicine; Visit Provider Student in an Organized Health Care Education/Training Program
DX: Z11.59 Encounter for screening for other viral diseases (principal); R74.01 Elevation of levels of liver transaminase levels; Z79.899 Other long term (current) drug therapy; M05.9 Rheumatoid arthritis with rheumatoid factor, unspecified
CPT/HCPCS: 36415; 80053; 85025; 85652; 86140; 86704; 86706; 86709; 86803; 87340

== ENCOUNTER 2023-11-03 07:59 | Outpatient (AMB) | payer OTHER, SELFPAY ==
--- NOTE | 2023-11-03 08:03 | A.OFFVIS_ITS ---
Vital Signs 11/03/23 08:07 Height 5 ft Weight 157 lb 13.616 oz BMI 30.8 BP 122/80 Blood Pressure Location Lt brachial Position Sitting Pulse 82 Pulse Source Pulse Oximeter Pulse Oximetry (%) 100 Oxygen Delivery Method Room Air Intake Visit Reasons: RA/CM Intake Note: Patient presents for RA. Allergies morphine Allergy (Unknown, Verified 11/03/23 08:06) Unknown Medication List - Last Reconciled 11/03/23 by Tyson Arriaga MD atorvastatin 20 mg PO DAILY piroxicam 10 mg PO BID prednisone 5 mg PO DAILY PRN 3 days Rinvoq ER (upadacitinib) 15 mg PO DAILY NS HPI Comments Details: 48-year-old female with seropositive deforming RA returns for follow-up. She is on Rinvoq 15 mg p.o. daily, she also states that she takes the piroxicam twice daily. She states that her joints are doing much better overall. 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 She states that she gets mild foot and ankle pain with walking. Most recent history by Dr. Sousa 02/2023: The patient returns for evaluation of her seropositive rheumatoid arthritis. She remains on Rinvoq 15 mg weekly, piroxicam 10 mg b.i.d., and occasional prednisone 5 mg. She said in the past month she maybe took the prednisone once, she takes 2 tablets if she has a bad day. There do not appear to be any side effects she says with her current treatment. She remains on the atorvastatin for her hyperlipidemia. This had developed when she went on the Xeljanz in the past. [facility] Medical History Vitamin D deficiency Long-term use of immunosuppressant medication Osteoarthritis of knees, bilateral Hyperlipidemia History of latent tuberculosis Cervical radicular pain Seropositive rheumatoid arthritis Social History Household Members: Family Housing: Condominium Are you a primary animal caretaker to a significant other at home: No Do you presently have visiting nurse or other home services: No 75 years or older and lives alone: No Alcohol intake: never Patient Tobacco Use Status: Never used Tobacco e-Cigarette/Vaping Use: Never Used service: No Current occupational status: employed 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 Review of Systems [facility] Denies arthralgias, Denies joint swelling and Denies stiffness Physical Exam Vital Signs: Last Vital Signs Pulse 82 11/03/23 08:07 BP 122/80 11/03/23 08:07 Pulse Ox 100 11/03/23 08:07 Oxygen Delivery Method Room Air 11/03/23 08:07 BMI result Body Mass Index 30.8 Const General: cooperative, healthy appearing and comfortable Nutritional Appearance: overweight Orientation/consciousness: patient oriented x3 Limitations: no limitations HEENT Head: Yes normocephalic and Yes atraumatic Mouth: moist mucous membranes Resp Effort & Inspection: normal respiratory effort and able to speak in complete sentences Auscultation: clear to auscultation bilaterally Cardio Rate: regular rate GI Palpation (GI): Soft to palpation Neuro General: patient oriented x3 Extrem Other: Prominent right ulnar styloid [place]-neck deformity of right 2nd, 3rd and 4th fingers Left 3rd and 4th swan-neck deformities No active synovitis today of hands and wrists Bilateral knee crepitus but no warmth or pain with flexion and extension no ankle swelling or tenderness bilaterally Assessment & Plan Assessment & Plan (1) Seropositive rheumatoid arthritis: Comment: Dx 03/2014 +++RF +++CCP deforming erosive 09/04 - side effects with MTX (oral ulcers, eye twitching). Humira started October 04, 2014 stopped after two doses due to headache, nausea, lightheadedness Cimzia since 03/06, sulfasalazine added 06/05 - not tolerated and stopped 09/05. Cimzia stopped as well 09/05 due to ineffectiveness Positive TB test - quantiferon 09/05 and isoniazid started Xeljanz started 01/27/16 - changed to Rinvoq due to failing effectiveness 11/2021. R 4th and 5th tendon rupture. 07/2022 back on Xeljanz because she felt the Rinvoq gave abdominal pain, chest pain, and rectal bleeding. 11/2022 -back on Rinvoq; xeljanz not effective(Gi symptoms felt due to colonic purging supplements) Rinvoq DC 05/2023 due to diarrhea, blood in stool Orencia 05/2023 not effective + dizziness, lightheadedness, falls back to Rinvoq 07/2023 effective Code(s): M05.9 - Rheumatoid arthritis with rheumatoid factor, unspecified Category: Medical Plan: 48-year-old female with seropositive erosive RA returns for follow-up. She is on Rinvoq 15 mg p.o. daily. Takes piroxicam 10 mg Twice daily. Advised patient to only take piroxicam as needed. Can substitute piroxicam with Tylenol when possible. Continue Rinvoq 15 mg p.o. daily Labs before next visit in 3 months (2) Long-term use of immunosuppressant medication: Code(s): Z79.899 - Other fpc (current) drug therapy Category: Medical Plan: Monitor safety labs (3) Immunization counseling: Code(s): Z71.85 - Encounter for immunization safety counseling Category: Medical Plan: Advised patient to get the Shingrix vaccine as she is on Rinvoq. Advised patient to hold Rinvoq 3 days before and 3 days after each vaccine dose (4) History of latent tuberculosis: Comment: Positive quantiferon test August 2015 after a negative test in March 2014. She did visit [facility] in late 2014 Isoniazid started August 2015 and stopped late May 2016. Code(s): Z86.15 - Personal history of latent tuberculosis infection Category: Medical Plan I spent 30 minutes reviewing patient's chart, evaluating patient, ordering diagnostic workup, counseling patient and documenting in the chart Coding Level of Care Code Est Pt Level 4 (00450) Diagnoses Seropositive rheumatoid arthritis M05.9 Long-term use of immunosuppressant medication Z79.899 Immunization counseling Z71.85 History of latent tuberculosis Z86.15
[2023-11-03 08:07] VITALS: BP 122/80; PULSE 82; O2SAT 100; BMI 30.8
== END 2023-11-03 08:24 | disposition home or self-care (01) ==
PROVIDERS: PCP Internal Medicine; Visit Provider Student in an Organized Health Care Education/Training Program
DX: M05.79 Rheumatoid arthritis with rheumatoid factor of multiple sites without organ or systems involvement (principal); Z79.899 Other long term (current) drug therapy; Z71.85 Encounter for immunization safety counseling; Z86.15 Personal history of latent tuberculosis infection
CPT/HCPCS: 99214

== ENCOUNTER → 2023-11-03 07:59 | Outpatient (BNVA) | payer OTHER, SELFPAY | PROVIDERS: PCP Internal Medicine; Visit Provider Student in an Organized Health Care Education/Training Program | DX: M05.9 Rheumatoid arthritis with rheumatoid factor, unspecified (principal); E55.9 Vitamin D deficiency, unspecified; Z86.15 Personal history of latent tuberculosis infection; Z71.85 Encounter for immunization safety counseling; Z79.60 Long term (current) use of unspecified immunomodulators and immunosuppressants; Z79.899 Other long term (current) drug therapy | CPT/HCPCS: 99212 ==

== ENCOUNTER 2024-02-01 15:33 | Outpatient (REF) | payer OTHER, SELFPAY ==
[2024-02-01 15:51] LABS: MANUAL DIFF FLAG NO
[2024-02-01 16:09] LABS: Basophils Percent Auto 0.6 % (0-2); Eosinophils Percent Auto 0.6 % (0-4); Hematocrit 35.8 % (37.0-47.0); Hemoglobin 11.9 g/dl (12.0-16.0); Imm Gran Abs Auto 0.01 X10*3/uL (0.00-0.03); Imm Gran Pct Auto 0.2 % (0.0-0.4); Lymphocytes Absolute Auto 2.1 X10*3/uL (1.2-4.9); Lymphocytes Percent Auto 41.2 % (20-40); Mean Corpuscular HGB Conc 33.2 g/dl (31.0-35.0); Mean Corpuscular Hemoglobin 30.1 pg (27.0-33.0); Mean Corpuscular Volume 90.4 fL (80.0-98.0); Mean Platelet Volume 10.5 fL (9.4-12.3); Monocytes Absolute Auto 0.4 X10*3/uL (0.1-1.2); Monocytes Percent Auto 8.2 % (2-11); Neutrophils Absolute Auto 2.5 x10*3/uL (2.0-8.3); Neutrophils Percent Auto 49.2 % (45-73); Platelet Count 248 X10*3/uL (160-400); Red Blood Count 3.96 X10*6/uL (4.20-5.50); Red Cell Distribution Width 14.1 % (11.0-16.0)
[2024-02-01 16:49] LABS: Alanine Aminotransferase 29 U/L (0-31); Albumin Level 4.3 g/dL (3.5-5.0); Alkaline Phosphatase 112 U/L (39-117); Anion Gap 14 (12-20); Aspartate Amino Transferase 40 U/L (5-31); Bilirubin Total 0.4 mg/dL (0.0-1.0); Blood Urea Nitrogen 25 mg/dL (9-16); C Reactive Protein < 0.04 mg/dL (< or = 0.50); Calcium 9.6 mg/dL (8.4-10.2); Carbon Dioxide 22 mmol/L (22-29); Chloride 110 mmol/L (96-108); Estimated Glomerular Filt Rate > 60; Glucose Random 93 mg/dL (60-115); Potassium 4.7 mmol/L (3.3-5.1); Sodium 141 mmol/L (135-145); Total Protein 7.4 g/dL (6.5-8.0)
[2024-02-01 17:09] LABS: Erythrocyte Sedimentation Rate 17 MM/HR (0-20)
== END 2024-02-01 15:34 | disposition home or self-care (01) ==
LOC: HO.LAB 15:33
PROVIDERS: PCP Internal Medicine; Visit Provider Student in an Organized Health Care Education/Training Program
DX: M05.9 Rheumatoid arthritis with rheumatoid factor, unspecified (principal)
CPT/HCPCS: 36415; 80053; 85025; 85652; 86140

== ENCOUNTER 2024-02-03 09:30 | Outpatient (AMB) | payer OTHER, SELFPAY ==
--- NOTE | 2024-02-03 09:32 | A.OFFVIS_ITS ---
Vital Signs 02/03/24 09:35 Height 5 ft Weight 157 lb 10.088 oz BMI 30.8 BP 130/80 Blood Pressure Location Lt brachial Position Sitting Pulse 84 Pulse Source Pulse Oximeter Pulse Oximetry (%) 94 Oxygen Delivery Method Room Air Intake Visit Reasons: RA/CM Intake Note: Patient presents for RA. Allergies morphine Allergy (Unknown, Verified 02/03/24 09:35) Unknown Medication List - Last Reconciled 02/03/24 by Tyson Arriaga MD atorvastatin 20 mg PO DAILY piroxicam 10 mg PO DAILY PRN prednisone 5 mg PO DAILY PRN Rinvoq ER (upadacitinib) 15 mg PO DAILY NS HPI Comments Details: 48-year-old female with seropositive deforming RA returns for follow-up. She is on Rinvoq 15 mg p.o. daily, she also states that she takes the piroxicam twice daily. She states that her joints are doing well overall. She took prednisone once or twice over the last 3 months. She has been walking on the treadmill at home and she feels it is helping her. Most recent history by Dr. Sousa 02/2023: The patient returns for evaluation of her seropositive rheumatoid arthritis. She remains on Rinvoq 15 mg weekly, piroxicam 10 mg b.i.d., and occasional prednisone 5 mg. She said in the past month she maybe took the prednisone once, she takes 2 tablets if she has a bad day. There do not appear to be any side effects she says with her current treatment. She remains on the atorvastatin for her hyperlipidemia. This had developed when she went on the Xeljanz in the past. [facility] Medical History Vitamin D deficiency Long-term use of immunosuppressant medication Osteoarthritis of knees, bilateral Hyperlipidemia History of latent tuberculosis Cervical radicular pain Seropositive rheumatoid arthritis Social History Household Members: Family Housing: Condominium Are you a primary physician assistant primary care to a significant other at home: No Do you presently have visiting nurse or other home services: No 75 years or older and lives alone: No Alcohol intake: never Patient Tobacco Use Status: Never used Tobacco e-Cigarette/Vaping Use: Never Used service: No Current occupational status: employed Current occupation: [employer] Review of Systems [facility] [place] Denies arthralgias, Denies joint swelling and Denies stiffness Physical Exam Vital Signs: Last Vital Signs Pulse 84 02/03/24 09:35 BP 130/80 02/03/24 09:35 Pulse Ox 94 02/03/24 09:35 Oxygen Delivery Method Room Air 02/03/24 09:35 BMI result Body Mass Index 30.8 Const General: cooperative, healthy appearing and comfortable Nutritional Appearance: overweight Orientation/consciousness: patient oriented x3 Limitations: no limitations HEENT Head: Yes normocephalic and Yes atraumatic Mouth: moist mucous membranes Resp Effort & Inspection: normal respiratory effort and able to speak in complete sentences Auscultation: clear to auscultation bilaterally Cardio Rate: regular rate GI Palpation (GI): Soft to palpation Neuro General: patient oriented x3 Extrem Other: Prominent right ulnar styloid [place]-neck deformity of right 2nd, 3rd and 4th fingers Left 3rd and 4th swan-neck deformities No active synovitis today of hands and wrists Bilateral knee crepitus but no warmth or pain with flexion and extension no ankle swelling or tenderness bilaterally Assessment & Plan Assessment & Plan (1) Seropositive rheumatoid arthritis: Comment: Dx 03/2014 +++RF +++CCP deforming erosive 09/04 - side effects with MTX (oral ulcers, eye twitching). Humira started October 04, 2014 stopped after two doses due to headache, nausea, lightheadedness Cimzia since 03/06, sulfasalazine added 06/05 - not tolerated and stopped 09/05. Cimzia stopped as well 09/05 due to ineffectiveness Positive TB test - quantiferon 09/05 and isoniazid started Xeljanz started 01/27/16 - changed to Rinvoq due to failing effectiveness 11/2021. R 4th and 5th tendon rupture. 07/2022 back on Xeljanz because she felt the Rinvoq gave abdominal pain, chest pain, and rectal bleeding. 11/2022 -back on Rinvoq; xeljanz not effective(Gi symptoms felt due to colonic purging supplements) Rinvoq DC 05/2023 due to diarrhea, blood in stool Orencia 05/2023 not effective + dizziness, lightheadedness, falls back to Rinvoq 07/2023 effective Code(s): M05.9 - Rheumatoid arthritis with rheumatoid factor, unspecified Category: Medical Plan: 48-year-old female with seropositive erosive RA returns for follow-up. She is on Rinvoq 15 mg p.o. daily. Takes piroxicam 10 mg Twice daily. Advised patient to lower her piroxicam use to once daily or only as needed Continue Rinvoq 15 mg p.o. daily Labs before next visit in 4 months (2) Long-term use of immunosuppressant medication: Code(s): Z79.899 - Other ad terminal makeup operator (current) drug therapy Category: Medical Plan: Monitor safety labs (3) Immunization counseling: Code(s): Z71.85 - Encounter for immunization safety counseling Category: Medical Plan: Advised patient to get the flu vaccine. (4) History of latent tuberculosis: Comment: Positive quantiferon test August 2015 after a negative test in March 2014. She did visit [facility] in late 2014 Isoniazid started August 2015 and stopped late May 2016. Code(s): Z86.15 - Personal history of latent tuberculosis infection Category: Medical Plan I spent 25 minutes reviewing patient's chart, evaluating patient, ordering diagnostic workup, counseling patient and documenting in the chart Orders: Orders Comprehensive Met. Panel 4 Months M05.9 - Rheumatoid arthritis with rheumatoid factor, unspecified Complete Blood Count Auto Diff 4 Months M05.9 - Rheumatoid arthritis with rheumatoid factor, unspecified C Reactive Protein 4 Months M05.9 - Rheumatoid arthritis with rheumatoid factor, unspecified Erythrocyte Sedimentation Rate 4 Months M05.9 - Rheumatoid arthritis with rheumatoid factor, unspecified Medications: Changed From Rinvoq ER (upadacitinib) Lot: [id number] Exp : 12/12/24 15 mg PO DAILY 30 tabs 2RF NS To Rinvoq ER (upadacitinib) 15 mg PO DAILY 30 tabs 3RF NS Coding Level of Care Code Est Pt Level 4 (26030) Complex EM visit Add On G2211 Diagnoses Seropositive rheumatoid arthritis M05.9 Long-term use of immunosuppressant medication Z79.899 Immunization counseling Z71.85 History of latent tuberculosis Z86.15
[2024-02-03 09:35] VITALS: BP 130/80; PULSE 84; O2SAT 94; BMI 30.8
== END 2024-02-03 09:54 | disposition home or self-care (01) ==
PROVIDERS: PCP Internal Medicine; Visit Provider Student in an Organized Health Care Education/Training Program
DX: M05.79 Rheumatoid arthritis with rheumatoid factor of multiple sites without organ or systems involvement (principal); Z79.899 Other long term (current) drug therapy; Z71.85 Encounter for immunization safety counseling; Z86.15 Personal history of latent tuberculosis infection
CPT/HCPCS: 99214; G2211

== ENCOUNTER → 2024-02-03 09:30 | Outpatient (BNVA) | payer OTHER, SELFPAY | PROVIDERS: PCP Internal Medicine; Visit Provider Student in an Organized Health Care Education/Training Program | DX: M05.9 Rheumatoid arthritis with rheumatoid factor, unspecified (principal); Z86.15 Personal history of latent tuberculosis infection; Z79.899 Other long term (current) drug therapy; Z71.85 Encounter for immunization safety counseling | CPT/HCPCS: 99212 ==

== ENCOUNTER 2024-05-27 11:23 | Outpatient (REF) | payer OTHER, SELFPAY ==
[2024-05-27 12:59] LABS: MANUAL DIFF FLAG NO
[2024-05-27 13:01] LABS: Basophils Percent Auto 0.5 % (0-2); Eosinophils Percent Auto 0.7 % (0-4); Hematocrit 38.9 % (37.0-47.0); Hemoglobin 12.4 g/dl (12.0-16.0); Imm Gran Abs Auto 0.01 X10*3/uL (0.00-0.03); Imm Gran Pct Auto 0.2 % (0.0-0.4); Lymphocytes Absolute Auto 1.8 X10*3/uL (1.2-4.9); Lymphocytes Percent Auto 31.6 % (20-40); Mean Corpuscular HGB Conc 31.9 g/dl (31.0-35.0); Mean Corpuscular Hemoglobin 28.2 pg (27.0-33.0); Mean Corpuscular Volume 88.6 fL (80.0-98.0); Mean Platelet Volume 9.6 fL (9.4-12.3); Monocytes Absolute Auto 0.5 X10*3/uL (0.1-1.2); Neutrophils Absolute Auto 3.3 x10*3/uL (2.0-8.3); Platelet Count 329 X10*3/uL (160-400); Red Blood Count 4.39 X10*6/uL (4.20-5.50); Red Cell Distribution Width 14.7 % (11.0-16.0); White Blood Count 5.7 X10*3/uL (4.8-10.8)
--- OUTSIDE RECORDS SUMMARY | 2024-05-27 13:14 | XMS_ITS | Encounter Summary ---
Author Organization [facility] Address [address] [place] [address] Care Team Providers Care Workers Compensation Analyst Name Role Phone Tomeka Carranza MD Primary Care Prov ider Reason for Visit * Reason Onset Date Comments special procedure 04/26/2024 Encounter Details Date Type Department Care Team (Late st Contact Info) Description 04/26/2024 Telephone Gastroenterology - [place] [address] [place] [address] Isidoro Ospina MD [address] [place], [place] [id number] special procedure Social History Tobacco Use Types Packs/Day Years Used Date Smoking Tobacco: Never Smokeless Tobacco: Never Alcohol Use Standard Drinks/Week Comments No 0 (1 standard drink = 0.6 oz pur e alcohol) Housing Instability Answer Date Recorde d Are you worried that in the next 2 months you may not have stable housing? No 05/20/2024 Food Access & Nutrition Answer Date Rec orded Do you have access to a vari ety of food including fruits and vegetables? Unable to respond 05/20/2024 Health Literacy Answer Date Recorded How often do you need to hav e someone help you when you read instructions, pamphlets, or other written material from your doctor or pharmacy? Never 05/20/2024 Caregiver: How often do you need to have someone help you when you read instructions, pamphlets, or other written material from your doctor or pharmacy? Not on file 05/20/2024 Financial Risk Answer Date Recorded How hard is it for you to pa y for the very basics like food, housing, medical care, and air conditioning / heating? Not asked 05/20/2024 Transportation Answer Date Recorded Has the lack of transportati on kept you from meetings, work, or from getting things needed for daily living? No Has the lack of transportati on kept you from medical appointments or from getting medications? No 05/20/2024 Social Isolation Answer Date Recorded How often do you feel lonely or isolated from th ose around you? Never 05/20/2024 Food Risk Answer Date Recorded Within the past 12 months we worried whether our food would run out before we got money to buy more. Never true 05/20/2024 Within the past 12 months th e food we bought just didn't last and we didn't have money to get more. Never true 05/20/2024 Education Answer Date Recorded Do you think completing more education or training, like finishing a GED, going to college, or learning a trade, would be helpful for you? No 05/20/2024 Living Situation Answer Date Recorded What is your living situation? 0 05/20/2024 Comments Unknown Sex and Gender Information Value Date Recorded Sex Assigned at Not on file Legal Sex Female 9:17 PM EST Gender Identity Not on file Sexual Orientation Not on file documented as of this encounter Progress Notes * Linda Hudson - 04/26/2024 9:03 AM EST Please cancel appointment, call hospital, no transportation documented in this encounter Plan of Treatment Upcoming Encounters Date Type Department Care Team (Late st Contact Info) Description 06/29/2024 3:30 PM EDT Appointment Radiology Department - [address] [address] 11/29/2024 8:45 AM EDT Office Visit Adult Medicine - [place] [address] [place] [address] Tomeka Carranza MD [address] [place] [address] documented as of this encounter Visit Diagnoses Not on filedocumented in this encounter Care Teams Workers Compensation Analyst Relationship Specialty Start Date End Date Tomeka Carranza MD [address] [place] [id number] PCP - General Internal Medicine 08/07/20 documented as of this encounter
--- OUTSIDE RECORDS SUMMARY | 2024-05-27 13:14 | XMS_ITS | Clinical Summary ---
Author Organization [facility] Address [address] [place] [address] Phone Care Team Providers Care Hand Coke Drawer Name Role Phone Tomeka Carranza MD Primary Care Prov ider Allergies Active Allergy Reactions Criticality Noted Date Comments Morphine 12/02/2016 Medications upadacitinib (Rinvoq) 15 mg tablet extended release 24 hr Take 1 Tablet by mouth daily. 07/30/19 24 Active acetaminophen (TYLENOL 8 HOUR) 650 mg 8 hr tablet Take 1 tablet (650 mg total) by mouth every 8 (eight) hours if needed for mild pain. Tylenol arthritis Active atorvastatin (LIPITOR) 20 mg tablet Take 1 tablet (20 mg total) by mouth 1 (one) time each day. 90 each 1 05/26/19 25 025 Active meclizine (ANTIVERT) 25 mg tablet Take 1 Tablet by mouth 3 times daily as needed (dizziness). 01/05/20 24 025 Discontinued(T herapy completed) piroxicam (FELDENE) 10 mg capsule TAKE 1 CAPSULE BY MOUTH TWICE A DAY 06/05/19 22 025 Discontinued(T herapy completed) atorvastatin (LIPITOR) 20 mg tablet TAKE 1 TABLET BY MOUTH EVERY DAY 11/06/19 24 025 Discontinued polyethylene glycol (Golytely) 236-22.74-6.7 4 -5.86 gram solution Take 4L by mouth once for one dose. May substitue any PEG. Starting at 6PM the night before your procedure drink 1 8oz glasses at your own pace until you complete half of the gallon. Finish 2nd half of the gallon 5 hours before your procedure. 4000 mL 04/12/19 25 025 Discontinued(T herapy completed) bisacodyL (DULCOLAX) 5 mg EC tablet Take 2 tablets by mouth right before beginning bowel prep. See instructions provided by the office 2 tablet 04/12/19 25 025 Discontinued(T herapy completed) atorvastatin (LIPITOR) 20 mg tablet TAKE 1 TABLET BY MOUTH EVERY DAY 90 tablet 05/03/19 25 025 Discontinued(R eorder) Active Problems Problem Noted Date Diagnosed Date HGSIL (high grade squamous i ntraepithelial lesion) on Pap smear of cervix 01/21/2024 Overview (02/26/2024): 2023 HGSIL +HPV Colpo bx 6 o'clock and ECC benign Repeat pap 2024 Osteoarthritis of both knees 05/26/2018 Left anterior cruciate ligament tear 03/17/2017 Hyperlipidemia 02/26/2016 Overview (02/26/2024): ? Worse on Xeljanz atorvastatin started 09/09 Latent tuberculosis 10/10/2015 Overview (02/26/2024): Positive quantitative fear and test August 2015 after a negative test in March 2014. She did visit [place] in late 2014 Isoniazid started August 2015 and stopped late May 2016. Inguinal lymphadenopathy 09/20/2015 Hematochezia 08/29/2014 Overview (02/26/2024): 09/04 - referred to sequencing machine operator 02/04 - normal [facility] upper endoscopy, colonoscopy with normal biopsies Numbness and tingling in right hand 09/02/2013 Overview (02/26/2024): Dr. Le - EMG consistent with mild carpal tunnel syndrome, not verifiable clinically Seropositive rheumatoid arthritis 08/26/2013 Overview (02/26/2024): Dr. Sousa 09/03 - early or mild rheumatoid arthritis; NSAIDs (topically and oral); 2014 - More synovitis. RF and CCP positive Low dose prednisone started 09/04 - side effects with methotrexate (oral ulcers, eye twitching). Humira started October 04, 2014 stopped after two doses due to headache, nausea, lightheadedness Cimzia since 03/06, sulfasalazine added 06/05 - not tolerated and stopped 09/05. Cimzia stopped as well 09/05 due to ineffectiveness Positive TB test - quantiferon 09/05 and isoniazid started Xeljanz started 01/27/16 Cervical radiculopathy 08/03/2013 Overview (02/26/2024): Dr. Gonzalez MRI 09/03 - Degeneration of C3-C4 and C4-C5 discs with stenosis of the right C5 lateral recess Encounters Date Type Department Care Team Description 05/25/2024 9:00 AM EST Office Visit Adult Medicine [facility] [address] [place] [address] Tomeka Joyner MD Routine general medical examination at a health care facility (Primary Dx); Seropositive rheumatoid arthritis (CMS/HCC); Mixed hyperlipidemia 05/24/2024 Telephone [facility] [address] [place] [address] Jhon Davis To complete Pt S[facility] Assessment & Offer Resources. 04/26/2024 Telephone Gastroenterology - [place] [address] [facility] [address] [place] [address] Isidoro Ospina MD special procedure from Last 3 Months Immunizations Name Administration Dates Next Due Influenza trivalent, 0.5mL, preservative free (Fluarix; FluLaval; Fluzone) ages 6mo and older (Afluria) 3 years and older 02/03/2024,12/17/2019 Pfizer SARS-CoV-2 COVID-19, mRNA, LNP-S, preservative free 01/17/2021 Td Tetanus diptheria (Tdvax) 7yo and older 10/30 Tdap Tetanus diptheria acell ular pertussis (Boostrix; Adacel) 7yo and older 04/21/2023,04/19/2013 Surgical History Surgery Date Site/Laterality Comments VAGINAL DELIVERY PROCEDURE: HISTORICAL VAGINAL DELIVERY; COMMENT: 2 COLONOSCOPY 01/30/2015 PROCEDURE: HISTORICAL COLONOSCOPY; COMMENT: Normal UPPER GASTROINTESTINAL ENDOSCOPY 01/30/2015 PROCEDURE: MN UPPER GI ENDOSCOPY PERFORMED; COMMENT: Visually normal; duodenal biopsies: normal. OTHER SURGICAL HISTORY 01/05 PROCEDURE: MN UNLISTED PROCEDURE CONJUNCTIVA; COMMENT: cosmetic surgery Medical History Medical History Date Comments Hand pain 04/19/2013 DX:Hand pain; CO MMENT: Left 2nd MTP Cervical radiculopathy 08/03/2013 DX:Cervic al radiculopathy; COMMENT: Dr. Gonzalez 09/03 - Degeneration of C3-C4 and C4-C5 discs with stenosis of the right C5 lateral recess most likely contributing to the pain in the right shoulder, polyarthralgia with increasing pain and stiffness in both hands; pending basic rheumatological panel, physical therapy for cervical traction. If fails therapy, right C5 transforaminal epidural steroid in* Elevated rheumatoid factor 08/26/2013 DX:El evated rheumatoid factor Rheumatoid arthritis (CMS/HCC) 04/07/2014 D X:Rheumatoid arthritis (HCC) Osteoarthritis of both knees 05/26/2018 DX: Osteoarthritis of both knees Family History Medical History Relation Name Comments Arthritis Father Hyperlipidemia Father Hypertension Mother Autoimmune disease Neg Hx Breast cancer Neg Hx Colon cancer Neg Hx Coronary artery disease Neg Hx Diabetes Neg Hx Heart attack Neg Hx Heart failure Neg Hx Mental illness Neg Hx Prostate cancer Neg Hx Sleep apnea Neg Hx Thyroid disease Neg Hx Relation Name Status Comments Father Other estranged Maternal Grandfather Maternal Grandmother Mother Alive Social History Tobacco Use Types Packs/Day Years Used Date Smoking Tobacco: Never Smokeless Tobacco: Never Tobacco Cessation:Counseling Given: Not Answered Alcohol Use Standard Drinks/Week Comments No 0 [...] is your living situation? 0 05/20/2024 Comments No Sex and Gender Information Value Date Recorded Sex Assigned at Not on file Legal Sex Female 9:17 PM EST Gender Identity Not on file Sexual Orientation Not on file Obstetrics History Last Filed Vital Signs Vital Sign Reading Time Taken Comments Blood Pressure 122/89 05/25/2024 8:58 AM EST Pulse 88 05/25/2024 8:58 AM EST Temperature 36.4 ??C (97.6 ??F) 05/25/2024 8:58 AM ES T Respiratory Rate - - Oxygen Saturation - - Inhaled Oxygen Concentration - - Weight 70.5 kg (155 lb 6.4 oz) 05/25/2024 8:58 A M EST Height 149 cm (4' 10.66 ) 05/25/2024 8:58 AM EST Body Mass Index 31.75 05/25/2024 8:58 AM EST Plan of Treatment Upcoming Encounters Date Type Department Care Team (Late st Contact Info) Description 06/29/2024 3:30 PM EDT Appointment Radiology Department - [address] [address] 11/29/2024 8:45 AM EDT Office Visit Adult Medicine - [place] [address] [place] [address] Tomeka Carranza MD [address] [place] [address] Health Maintenance Due Date Last Done Comments Colorectal Cancer Screening: Colonoscopy 02/22/2022 Breast Cancer Screening 10/15/2022 10/16/19 21, 01/17/2019, 01/11/2018, Additional history exists Cervical Cancer Screening: HPV 11/26/2024 11/27/2023 Depression Screening 05/20/2025 05/20/2024, 04/21/19 24 Social Influencers of Health Screening 05/20/2025 05/20/2024 Cholesterol Screening (Lipid Panel) 05/25/2029 05/25/2024, 04/21/2023 DTaP,Tdap,and Td Vaccines (4 - Td or Tdap) 04/21/2033 04/21/2023, 04/19/2013, 10/31/2003 Hepatitis C Screening Completed 04/07/2014 COVID-19 Vaccine Discontinued 01/17/2021, , 06/15/2020 Influenza Vaccine Completed 02/03/2024, 12/17/2019 HIB Vaccines Aged Out No longer eligi ble based on patient's age to complete this topic HIV Screening Discontinued HPV Vaccines Aged Out No longer eligi ble based on patient's age to complete this topic Hepatitis A Vaccines Aged Out No long er eligible based on patient's age to complete this topic Hepatitis B Vaccines Discontinued IPV Vaccines Aged Out No longer eligi ble based on patient's age to complete this topic MMR Vaccines Aged Out No longer eligi ble based on patient's age to complete this topic Meningococcal ACWY Vaccine Aged Out N o longer eligible based on patient's age to complete this topic Meningococcal B Vacine Aged Out No lo nger eligible based on patient's age to complete this topic Pneumococcal Vaccine: Pediatrics (0 to 5 Years) and At-Risk Patients (6 to 64 Years) Aged Out No longer eligible based on patient's age to complete this topic RSV Immunization Patients Under 20 months Aged Out No longer eligible based on patient's age to complete this topic Varicella Vaccines Aged Out No longer eligible based on patient's age to complete this topic Procedures Procedure Name Priority Date/Time Associated Diagnosis Comments CBC WITH AUTO DIFFERENTIAL Routine 05/25/2024 9:53 AM EST Mixed hyperlipidemia CBC AND DIFFERENTIAL Routine 05/25/2024 9:53 AM EST Mixed hyperlipidemia COMPREHENSIVE METABOLIC PANEL Routine 05/25/2024 9:53 AM EST Routine general medical examination at a [facility] LIPID PANEL WITH REFLEX TO DIRECT LDL Routine 05/25/2024 9:53 AM EST Routine general medical examination at a [facility] facility HPV Routine 11/27/2023 DEPRESSION SCREENING Routine 04/21/2023 SCREENING MAMMOGRAPHY BI 2-VIEW BREAST INC CAD Routine 10/15/2020 2:48 PM EDT Encounter for screening mammogram for malignant neoplasm of breast HEPATITIS C SCREENING Routine 04/07/2014 from Last 3 Months or Most Recently Relevant to Health Maintenance Results * (ABNORMAL) Lipid panel with reflex to direct LDL (05/25/2024 9:53 AM EST) Cholesterol 197 0 - 200 mg/dL LAB CHEMISTRY METHOD 05/25/2024 1:56 PM [facility] Triglycerides 88 0 - 150 mg/dL LAB CHEMISTRY METHOD 05/25/2024 1:56 PM [facility] HDL 74 >=40 mg/dL LAB CHEMISTRY METHOD 05/25/2024 1:56 PM [facility] LDL Calculated 105(H) 0 - 100 mg/dL LAB CHEMISTRY METHOD 05/25/2024 1:56 PM [facility] VLDL Cholesterol Jason 17.6 mg/dL LAB CHEMISTRY METHOD 05/25/2024 1:56 PM [facility] Non HDL Chol. (LDL+VLDL) 123 <145 mg/dL LAB CHEMISTRY METHOD 05/25/2024 1:56 PM [facility] Chol/HDL Ratio 2.7 0.0 - 4.4 LAB CHEMISTRY METHOD 05/25/2024 1:56 PM [facility] Blood Venous blood specimen / Unknown Venipuncture / Unknown 05/25/2024 9:53 AM EST 05/25/2024 9:53 AM EST us Tomeka Carranza MD LAB BLOOD ORDERABL ES Final Result [facility] [address] [place] [address], * (ABNORMAL) CBC auto differential (05/25/2024 9:53 AM EST) WBC 5.4 4.8 - 10.8 K/mcL LAB HEMETOLOGY METHOD 05/25/2024 12:09 PM [facility] RBC 4.30 3.80 - 4.80 M/mcL LAB HEMETOLOGY METHOD 05/25/2024 12:09 PM [facility] Hemoglobin 12.2 11.5 - 16.0 g/dL LAB HEMETOLOGY METHOD 05/25/2024 12:09 PM [facility] Hematocrit 39.1 35.0 - 47.0 % LAB HEMETOLOGY METHOD 05/25/2024 12:09 PM [facility] MCV 90.1 79.0 - 98.0 FL LAB HEMETOLOGY METHOD 05/25/2024 12:09 PM [facility] MCH 28.1 27.0 - 32.0 pcg LAB HEMETOLOGY METHOD 05/25/2024 12:09 PM [facility] MCHC 31.2(L) 32.0 - 37.0 g/dL LAB HEMETOLOGY METHOD 05/25/2024 12:09 PM [facility] RDW 14.6 11.0 - 15.0 % LAB HEMETOLOGY METHOD 05/25/2024 12:09 PM [facility] Platelets 316 130 - 400 K/mcL LAB HEMETOLOGY METHOD 05/25/2024 12:09 PM [facility] MPV 10.1 7.0 - 11.0 FL LAB HEMETOLOGY METHOD 05/25/2024 12:09 PM [facility] NRBC 0.0 <1.0 % LAB HEMETOLOGY METHOD 05/25/2024 12:09 PM [facility] NRBC Absolute 0.00 <0.10 K/mcL LAB HEMETOLOGY METHOD 05/25/2024 12:09 PM [facility] Neutrophils Relative 78.9 % LAB HEMETOLOGY METHOD 05/25/2024 12:09 PM [facility] Lymphocytes Relative 15.1 % LAB HEMETOLOGY METHOD 05/25/2024 12:09 PM [facility] Monocytes Relative 5.2 % LAB HEMETOLOGY METHOD 05/25/2024 12:09 PM [facility] Eosinophils Relative 0.0 % LAB HEMETOLOGY METHOD 05/25/2024 12:09 PM [facility] Basophils Relative 0.4 % LAB HEMETOLOGY METHOD 05/25/2024 12:09 PM [facility] Immature Granulocytes Relative 0.4 % LAB HEMETOLOGY METHOD 05/25/2024 12:09 PM [facility] Neutrophils Absolute 4.23 1.50 - 7.00 K/mcL LAB HEMETOLOGY METHOD 05/25/2024 12:09 PM [facility] Lymphocytes Absolute 0.81(L) 1.00 - 5.00 K/mcL LAB HEMETOLOGY METHOD 05/25/2024 12:09 PM [facility] Monocytes Absolute 0.28 0.20 - 1.00 K/mcL LAB HEMETOLOGY METHOD 05/25/2024 12:09 PM [facility] Eosinophils Absolute 0.00 0.00 - 0.50 K/mcL LAB HEMETOLOGY METHOD 05/25/2024 12:09 PM [facility] Basophils Absolute 0.02 0.00 - 0.20 K/[facility] LAB HEMETOLOGY METHOD 05/25/2024 12:09 PM [facility] Immature Granulocytes Absolute 0.02 0.00 - 0.03 K/[facility] LAB HEMETOLOGY METHOD 05/25/2024 12:09 PM [facility] Blood Venous blood specimen / Unknown Venipuncture / Unknown 05/25/2024 9:53 AM EST 05/25/2024 9:53 AM EST Tomeka Carranza MD LAB BLOOD ORDERABL ES Final Result [facility] [address] [place] [address], * (ABNORMAL) Comprehensive metabolic panel (05/25/2024 9:53 AM EST) Sodium 140 133 - 145 mmol/L LAB CHEMISTRY METHOD 05/25/2024 1:56 PM [facility] Potassium 4.6 3.5 - 5.5 mmol/L LAB CHEMISTRY METHOD 05/25/2024 1:56 PM [facility] Chloride 109 96 - 110 mmol/L LAB CHEMISTRY METHOD 05/25/2024 1:56 PM [facility] CO2 24 21 - 32 mmol/L LAB CHEMISTRY METHOD 05/25/2024 1:56 PM [facility] Anion Gap 7 3 - 11 LAB CHEMISTRY METHOD 05/25/2024 1:56 PM [facility] Glucose 99 70 - 100 mg/dL LAB CHEMISTRY METHOD 05/25/2024 1:56 PM [facility] BUN 14 5 - 25 mg/dL LAB CHEMISTRY METHOD 05/25/2024 1:56 PM [facility] Creatinine 0.66 0.50 - 1.10 mg/dL LAB CHEMISTRY METHOD 05/25/2024 1:56 PM [facility] eGFR 108 >=60 mL/min/1. 73m2 LAB CHEMISTRY METHOD 05/25/2024 1:56 PM [facility] Comment:Calculation based on the??Chronic Kidney Disease Epidemiology Collaboration (CKD-EPI) equation refit??without adjustment for race. BUN/Creatinine Ratio 21.2 LAB CHEMISTRY METHOD 05/25/2024 1:56 PM [facility] Calcium 9.1 8.5 - 10.5 mg/dL LAB CHEMISTRY METHOD 05/25/2024 1:56 PM [facility] AST (SGOT) 26 10 - 42 unit/L LAB CHEMISTRY METHOD 05/25/2024 1:56 PM [facility] ALT (SGPT) 28 10 - 60 unit/L LAB CHEMISTRY METHOD 05/25/2024 1:56 PM [facility] Alkaline Phosphatase 188(H) 42 - 121 unit/L LAB CHEMISTRY METHOD 05/25/2024 1:56 PM [facility] Total Protein 7.4 6.0 - 8.0 g/dL LAB CHEMISTRY METHOD 05/25/2024 1:56 PM [facility] Albumin 3.7 3.2 - 5.0 g/dL LAB CHEMISTRY METHOD 05/25/2024 1:56 PM [facility] Total Bilirubin 0.3 0.0 - 1.4 mg/dL LAB CHEMISTRY METHOD 05/25/2024 1:56 PM [facility] Blood Venous blood specimen / Unknown Venipuncture / Unknown 05/25/2024 9:53 AM EST 05/25/2024 9:53 AM EST Tomeka Carranza MD LAB BLOOD ORDERABL ES Final Result [facility] [address] [place] [address], * Cervical Cancer Screening: HPV (11/27/2023) Cervical Cancer Screening: HPV Positive, Abstracted Historical Provider HEALTH MAINTENANCE Final Result * Depression Screening (04/21/2023) Depression Screening Abstracted Historical Provider HEALTH MAINTENANCE Final Result * SCREENING MAMMOGRAPHY BI 2-VIEW BREAST INC CAD (10/15/2020 2:48 PM EDT) Anatomical Region Laterality Modality [employer] [place] ging 09/27/2020 10:1 1 AM EDT Narrative 10/16/2020 9:00 AM EDT This is a summary report. The complete report is available in the patient's medical record. If you cannot access the medical record, please contact the sending organization for a detailed fax or copy. Exam: Screening mammogram Findings: Digital bilateral full-field screening mammography is performed with tomosynthesis and interpreted with the aid of computer-aided detection. ??Comparison is made with 01/17/2019 and as far back as 09/24/2016. Breast parenchyma is heterogeneously dense, limiting mammographic sensitivity. ??No new suspicious mass, architectural distortion, or suspicious calcifications. Impression: No mammographic evidence of malignancy. BI-RADS 1 - negative Procedure Note Lore Ramesh MD - 03/11/2022 This is a summary report. The complete report is available in thepatient's medical record. If you cannot access the medical record, pleasecontact the sending organization for a detailed fax or copy. Exam: Screening mammogram Findings: Digital bilateral full-field screening mammography is performedwith tomosynthesis and interpreted with the aid of computer-aideddetection. Comparison is made with 01/17/2019 and as far back as09/24/2016. Breast parenchyma is heterogeneously dense, limiting mammographicsensitivity. No new suspicious mass, architectural distortion, orsuspicious calcifications. Impression: No mammographic evidence of malignancy. BI-RADS 1 - negative Tomeka Carranza MD IMG XR PROCEDURES Final Result * Hepatitis C Screening (04/07/2014) Hepatitis C Screening Abstracted Historical Provider HEALTH MAINTENANCE Final Result from Last 3 Months or Most Recently Relevant to Health Maintenance Insurance [facility] [employer] Care Teams Hand Coke Drawer Relationship Specialty Start Date End Date Tomeka Carranza MD [address] [place] [id number] PCP - General Internal Medicine 08/07/20
--- OUTSIDE RECORDS SUMMARY | 2024-05-27 13:14 | XMS_ITS ---
Author Organization [facility] Address [address] [place] [address] Phone Care Team Providers Care Supervisor Vacuum Metalizing Name Role Phone Tomeka Carranza MD Primary Care Prov ider Community Health Worker Program Status:Closed (Closed) Start date:05/24/2024 Enrollment date:05/24/2024 Enrollment reason:Referred from clinic End date:05/24/2024 Close reason:Completed program Overview Community Health Worker Program Continued Care and Services Coordination
--- OUTSIDE RECORDS SUMMARY | 2024-05-27 13:14 | XMS_ITS | Encounter Summary ---
Author Organization [facility] Address [address] [place] [address] Care Team Providers Care Exhibit Builder Name Role Phone Tomeka Carranza MD Primary Care Prov ider Reason for Visit * Reason Comments Annual Exam Encounter Details Date Type Department Care Team (Latest Contact Info) Description 05/25/2024 9:00 AM EST Office Visit Adult Medicine - [place] [address] [place] [id number] Tomeka Carranza MD [address] [place] [address] Routine general medical examination at a health care facility (Primary Dx); Seropositive rheumatoid arthritis (CMS/HCC); Mixed hyperlipidemia Social History Tobacco Use Types Packs/Day Years [...] on file documented as of this encounter Last Filed Vital Signs Vital Sign Reading [...] Mass Index 31.75 05/25/2024 8:58 AM EST documented in this encounter Ordered Prescriptions Prescription Sig Dispense Quantity Refills Last Filled Start Date End Date atorvastatin (LIPITOR) 20 mg tablet Take 1 tablet (20 mg total) by mouth 1 (one) time each day. 90 each 1 05/25/2024 11/21/2024 documented in this encounter Progress Notes * Tomeka Carranza MD - 05/25/2024 9:00 AM EST CHIEF COMPLAINT: Annual Exam IDENTIFIER: Funmilayo Walter is a 48 y.o. old female. HPI: Patient presents today for annual physical exam. She presents alone. Very pleasant 48-year-old originally from [place] history of seropositive rheumatoid arthritis and hyperlipidemia. Today she does not have any acute issues. 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 Healthcare maintenance issues addressed Patient says he usually does not get the flu vaccine but got it sometime in November and in December she had the flu she does not want to take the flu vaccine again ROS: 12 point review of system was negative PAST MEDICAL HISTORY: Patient Active Problem List Diagnosis Date Noted HGSIL (high grade squamous intraepithelial lesion) on Pap smear of cervix 01/21/2024 Osteoarthritis of both knees 05/26/2018 Left anterior cruciate ligament tear 03/17/2017 Hyperlipidemia 02/26/2016 Latent tuberculosis 10/10/2015 Inguinal lymphadenopathy 09/20/2015 Hematochezia 08/29/2014 Numbness and tingling in right hand 09/02/2013 Seropositive rheumatoid arthritis (CMS/HCC) 08/26/2013 Cervical radiculopathy 08/03/2013 SOCIAL HISTORY: Social History Tobacco Use Smoking status: Never Smokeless tobacco: Never Substance Use Topics Alcohol use: No FAMILY HISTORY: Family Status Relation Name Status Father Other estranged Mother Alive Neg Hx (Not Specified) MGM MGF No partnership data on file Family History Problem Relation Name Age of Onset Hyperlipidemia Father Arthritis Father Hypertension Mother Diabetes Neg Hx Autoimmune disease Neg Hx Breast cancer Neg Hx Colon cancer Neg Hx Prostate cancer Neg Hx Coronary artery disease Neg Hx Mental illness Neg Hx Heart attack Neg Hx Heart failure Neg Hx Sleep apnea Neg Hx Thyroid disease Neg Hx ACTIVE MEDICATIONS: Outpatient Medications Marked as Taking for the 05/25/24 encounter (Office Visit) with Tomeka Carranza MD Medication Sig Dispense Refill atorvastatin (LIPITOR) 20 mg tablet Take 1 tablet (20 mg total) by mouth 1 (one) time each day. 90 each 1 [DISCONTINUED] atorvastatin (LIPITOR) 20 mg tablet TAKE 1 TABLET BY MOUTH EVERY DAY 90 tablet 0 ALLERGIES: Morphine PHYSICAL EXAM: Blood pressure 122/89, pulse 88, temperature 36.4 ??C (97.6 ??F), temperature source Temporal, height 1.49 m (58.66 ), weight 70.5 kg (155 lb 6.4 oz). Body mass index is 31.75 kg/m??. BMI is greater than 25.0 (above the normal range) - see Plan APPEARANCE: Alert and in no acute distress EYES: PERRLA, conjunctiva and sclera normal EARS: External ears normal. Canals clear. TMs normal. NOSE/SINUS: Nares normal. Septum midline. Mucosa normal. No drainage or sinus tenderness MOUTH/THROAT: no erythema, lesions, or exudates NECK: Neck supple, no adenopathy, thyroid symmetric and of normal size HEART: RRR with normal S1 and S2, no murmurs, no gallops, no JVD appreciated CHEST: non-tender LUNG: clear to auscultation bilaterally BREAST (FEMALE): Symmetrical, normal consistency without masses LYMPH NODES: grossly normal ABDOMEN: Bowel sounds normoactive, no bruits and soft, non-tender, without organomegaly or palpablemasses BACK: no pain to palpation and good flexion and extension EXTREMITIES: Extremities warm and well perfused without clubbing, cyanosis, or edema NEURO: Awake, alert and oriented x 3 and reflexes symmetrical SKIN: Skin color, texture, turgor normal. No rashes or lesions. LABS/IMAGING: Lab Results Component Value Date CHOL 229 (A) 04/21/2023 LDL 118 (A) 04/21/2023 HDL 97 04/21/2023 TRIG 70 04/21/2023 IMPRESSION: 1. Routine general medical examination at a health care facility 2. Seropositive rheumatoid arthritis (CMS/HCC) 3. Mixed hyperlipidemia PLAN: 1. Health maintenance: The patient presented for an evaluation of general health. As part of this visit, we reviewed the following issues, which are considered an essential part of preventative health in this age group: - Breast cancer screening for high risk individuals - mammogram up-to-date - Colon cancer screening starting at age 45 (colonoscopy every 10 years/annual FOBT plus flexi sigmoidoscopy every 5 years/double-contrast BE every 5 years/Cologuard every 3 years/Annual FOBT) - deferred by patient - Cervical cancer testing every 1-3 years - patient is up-to-date - Blood pressure annual screening performed - Cholesterol screening every five years - ordered - Nutritional and exercise counseling - patient advised to pursue at least 30 minutes of exercise most days of the week - Counseling of injury prevention including fire prevention, smoke alarms and seat belt usage - Screening for Type 2 diabetes mellitus in those with hypertension and/or hyperlipidemia - Education about skin cancer - Recommendations about immunizations - patient is up-to-date on immunizations - Screening for substance abuse (including tobacco, alcohol, and recreational drugs) - see Substance & Sexuality section of medical record - Genetic cancer risk screening - NO INDICATION: Hereditary Cancer Syndrome Risk Assessment completed and evaluated. No indication found for genetic testing at this time. - Did you have a dental visit in the last 12 months? Yes Return to the office in 6 months Orders Placed This Encounter Procedures Lipid panel with reflex to direct LDL Standing Status: Future Number of Occurrences: 1 Standing Expiration Date: 05/25/2025 Comprehensive metabolic panel Standing Status: Future Number of Occurrences: 1 Standing Expiration Date: 05/25/2025 CBC and differential Standing Status: Future Number of Occurrences: 1 Standing Expiration Date: 05/25/2025 Tomeka Carranza MD on 05/25/2024 at 10:28 AM EST documented in this encounter Plan of Treatment Upcoming Encounters Date Type Department Care Team (Late st Contact Info) Description 06/29/2024 3:30 PM EDT Appointment Radiology Department [address] [phone] 11/29/2024 8:45 AM EDT Office Visit Adult Medicine - [address] [phone] Tomeka Carranza MD [address] [place] [address] documented as of this encounter Results * (ABNORMAL) Comprehensive metabolic panel (05/25/2024 9:53 AM EST) [facility] Signature Sodium 140 133 - 145 mmol/L LAB CHEMISTRY METHOD 05/25/2024 1:56 PM EST [facility] Potassium 4.6 3.5 - 5.5 mmol/L LAB CHEMISTRY METHOD 05/25/2024 1:56 PM [facility] Chloride 109 96 - 110 mmol/L LAB CHEMISTRY METHOD 05/25/2024 1:56 PM [facility] CO2 24 21 - 32 mmol/L LAB CHEMISTRY METHOD 05/25/2024 1:56 PM [facility] Anion Gap 7 3 - 11 LAB CHEMISTRY METHOD 05/25/2024 1:56 PM [facility] Glucose 99 70 - 100 mg/dL LAB CHEMISTRY METHOD 05/25/2024 1:56 PM [facility] BUN 14 5 - 25 mg/dL LAB CHEMISTRY METHOD 05/25/2024 1:56 PM [facility] Creatinine 0.66 0.50 - 1.10 mg/dL LAB CHEMISTRY METHOD 05/25/2024 1:56 PM [facility] eGFR 108 >=60 mL/min/1. 73m2 LAB CHEMISTRY METHOD 05/25/2024 1:56 PM [facility] Comment:Calculation based on the??Chronic Kidney Disease Epidemiology Collaboration (CKD-EPI) equation refit??without adjustment for race. BUN/Creatinine Ratio 21.2 LAB CHEMISTRY METHOD 05/25/2024 1:56 PM [facility] Calcium 9.1 8.5 - 10.5 mg/dL LAB CHEMISTRY METHOD 05/25/2024 1:56 PM [facility] AST (SGOT) 26 10 - 42 unit/L LAB CHEMISTRY METHOD 05/25/2024 1:56 PM [facility] ALT (SGPT) 28 10 - 60 unit/L LAB CHEMISTRY METHOD 05/25/2024 1:56 PM [facility] Alkaline Phosphatase 188(H) 42 - 121 unit/L LAB CHEMISTRY METHOD 05/25/2024 1:56 PM [facility] Total Protein 7.4 6.0 - 8.0 g/dL LAB CHEMISTRY METHOD 05/25/2024 1:56 PM [facility] Albumin 3.7 3.2 - 5.0 g/dL LAB CHEMISTRY METHOD 05/25/2024 1:56 PM [facility] Total Bilirubin 0.3 0.0 - 1.4 mg/dL LAB CHEMISTRY METHOD 05/25/2024 1:56 PM [facility] Blood Venous blood specimen / Unknown Venipuncture / Unknown 05/25/2024 9:53 AM EST 05/25/2024 9:53 AM EST us Tomeka Carranza MD LAB BLOOD ORDERABL ES Final Result [facility] [address] [place] [address], [place] [phone] * (ABNORMAL) Lipid panel with reflex to direct LDL (05/25/2024 9:53 AM EST) Cholesterol 197 0 - 200 mg/dL LAB CHEMISTRY METHOD 05/25/2024 1:56 PM [facility] Triglycerides 88 0 - 150 mg/dL LAB CHEMISTRY METHOD 05/25/2024 1:56 PM [facility] HDL 74 >=40 mg/dL LAB CHEMISTRY METHOD 05/25/2024 1:56 PM [facility] LDL Calculated 105(H) 0 - 100 mg/dL LAB CHEMISTRY METHOD 05/25/2024 1:56 PM [facility] VLDL Cholesterol Jason 17.6 mg/dL LAB CHEMISTRY METHOD 05/25/2024 1:56 PM [facility] Non HDL Chol. (LDL+VLDL) 123 <145 mg/dL LAB CHEMISTRY METHOD 05/25/2024 1:56 PM [facility] Chol/HDL Ratio 2.7 0.0 - 4.4 LAB CHEMISTRY METHOD 05/25/2024 1:56 PM [facility] Blood Venous blood specimen / Unknown Venipuncture / Unknown 05/25/2024 9:53 AM EST 05/25/2024 9:53 AM EST us Tomeka Carranza MD LAB BLOOD ORDERABL ES Final Result [facility] [address] [place] [address], documented in this encounter Visit Diagnoses Diagnosis Routine general medical examination at a health care facility- Primary Seropositive rheumatoid arthritis (CMS/HCC) Mixed hyperlipidemia Encounter for screening mammogram for breast cancer documented in this encounter Discontinued Medications Medication Sig Discontinue Reason Start Date End Da te bisacodyL (DULCOLAX) 5 mg EC tablet Take 2 tablets by mouth right before beginning bowel prep. See instructions provided by the office Therapy completed 04/12/2024 05/25/2024 meclizine (ANTIVERT) 25 mg tablet Take 1 Tablet by mouth 3 times daily as needed (dizziness). Therapy completed 01/05/2024 05/25/2024 piroxicam (FELDENE) 10 mg capsule TAKE 1 CAPSULE BY MOUTH TWICE A DAY Therapy completed 06/04/2021 05/25/2024 polyethylene glycol (Golytely) 236-22.74-6.74 -5.86 gram solution Take 4L by mouth once for one dose. May substitue any PEG. Starting at 6PM the night before your procedure drink 1 8oz glasses at your own pace until you complete half of the gallon. Finish 2nd half of the gallon 5 hours before your procedure. Therapy completed 04/12/2024 05/25/2024 atorvastatin (LIPITOR) 20 mg tablet TAKE 1 TABLET BY MOUTH EVERY DAY Reorder 05/03/2024 05/25/2024 documented as of this encounter Historical Medications * This list may reflect changes made after this encounter. acetaminophen (TYLENOL 8 HOUR) 650 mg 8 hr tablet Take 1 tablet (650 mg total) by mouth every 8 (eight) hours if needed for mild pain. Tylenol arthritis added in this encounter Additional Health Concerns Assessment Noted Time PHQ-9 Depression Total Score: 0 05/20/19 25 8:17 AM EST documented as of this encounter Care Teams Exhibit Builder Relationship Specialty Start Date End Date Tomeka Carranza MD [address] [place] [id number] PCP - General Internal Medicine 08/07/20 documented as of this encounter
--- OUTSIDE RECORDS SUMMARY | 2024-05-27 13:14 | XMS_ITS | Encounter Summary ---
Author Organization [facility] [place] [address] Care Team Providers Care Cotton Stomper Name Role Phone Tomeka Carranza MD Primary Care Prov ider Reason for Visit * Reason Onset Date Comments To complete Pt SIOH Assessment & Offer Resources . 05/24/2024 Encounter Details Date Type Department Care Team (Late st Contact Info) Description 05/24/2024 Telephone [facility] [address] [place] [address] Jhon Davis To complete Pt SIOH Assessment & Offer Resources. Social History Tobacco Use Types Packs/Day Years [...] as of this encounter Progress Notes * Jhon Davis - 05/24/2024 10:02 AM EST Outreached patient on: Thursday - May 24, 2024. Reason for call: To complete a SIOH Screening Assessment prior to his/hers scheduled appointment totarget the pt needs. Pt has no positive targets or concerns at the moment. Thrive Screening: Completed with [facility] by phone. Follow up plan: [facility] will follow up on the next Dr's Appointment for another SIOH Assessment if necessary. [facility] [address] [phone]. Jhon Davis, GAYATRI, QBS ACO Case Management Community Health Worker II Office: [phone] documented in this encounter Plan of Treatment Upcoming Encounters Date Type Department Care Team (Late st Contact Info) Description 06/29/2024 3:30 PM EDT Appointment Radiology Department - [address] [phone] 11/29/2024 8:45 AM EDT Office Visit Adult Medicine - [place] [address] [place] [address] Tomeka Carranza MD [address] [place] [address] documented as of this encounter Visit Diagnoses Not on filedocumented in this encounter Additional Health Concerns Assessment Noted Time PHQ-9 Depression Total Score: 0 05/20/19 25 8:17 AM EST documented as of this encounter Care Teams Cotton Stomper Relationship Specialty Start Date End Date Tomeka Carranza MD [address] [place] [address] PCP - General Internal Medicine 08/07/20 documented as of this encounter
[2024-05-27 13:21] LABS: Alanine Aminotransferase 25 U/L (0-31); Albumin Level 4.1 g/dL (3.5-5.0); Anion Gap 12 (12-20); Aspartate Amino Transferase 35 U/L (5-31); Bilirubin Total 0.3 mg/dL (0.0-1.0); Blood Urea Nitrogen 14 mg/dL (9-16); C Reactive Protein 0.11 mg/dL (< or = 0.50); Calcium 9.5 mg/dL (8.4-10.2); Carbon Dioxide 25 mmol/L (22-29); Chloride 108 mmol/L (96-108); Estimated Glomerular Filt Rate > 60; Glucose Random 97 mg/dL (60-115); Potassium 4.6 mmol/L (3.3-5.1); Sodium 140 mmol/L (135-145)
[2024-05-27 13:42] LABS: Erythrocyte Sedimentation Rate 28 MM/HR (0-20)
[2024-05-27 15:47] LABS: Alkaline Phosphatase 166 U/L (39-117)
== END 2024-05-27 11:24 | disposition home or self-care (01) ==
LOC: HO.10HDL 11:23
PROVIDERS: Visit Provider Student in an Organized Health Care Education/Training Program
DX: M05.9 Rheumatoid arthritis with rheumatoid factor, unspecified (principal)
CPT/HCPCS: 36415; 80053; 85025; 85652; 86140

== ENCOUNTER 2024-06-01 11:17 | Outpatient (AMB) | payer OTHER, SELFPAY ==
--- NOTE | 2024-06-01 11:22 | MHC.OFFVIS ---
Vital Signs 06/01/24 11:26 Height 5 ft Weight 154 lb 8.705 oz BMI 30.2 BP 134/80 Blood Pressure Location Lt brachial Position Sitting Pulse 89 Pulse Source Pulse Oximeter Pulse Oximetry (%) 98 Oxygen Delivery Method Room Air Intake Visit Reasons: 4 mnts f/u for RA Intake Note: Patient presents for RA. Allergies morphine Allergy (Unknown, Verified 06/01/24 11:25) Unknown Medication List - Last Reconciled 06/01/24 by Kelin Salazar MD atorvastatin 20 mg PO DAILY prednisone 5 mg PO DAILY PRN Rinvoq ER (upadacitinib) 15 mg PO DAILY NS HPI Comments Details: Patient is a 48-year-old female with history of latent TB status post treatment, hyperlipidemia, polyarticular osteoarthritis and seropositive erosive rheumatoid arthritis here today for follow up Interval History: Patient last seen 02/20/[address] Arriaga. At that time patient was on Rinvoq 15 mg daily, piroxicam twice a day. She reported that her joints were doing well overall noting she only 2 additional prednisolone once or twice over the 3 months prior. Patient states that she is overall well Takes Tylenol arthritis every other day Stopped piroxicam Takes prednisone 5mg twice a week. 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 Humira started October 04, 2014 stopped after two doses due to headache, nausea, lightheadedness Cimzia since 03/06, sulfasalazine added 06/05 - not tolerated and stopped 09/05. Cimzia stopped as well 09/05 due to ineffectiveness Positive TB test - quantiferon 09/05 and isoniazid started Xeljanz started 01/27/16 - changed to Rinvoq due to failing effectiveness 11/2021. R 4th and 5th tendon rupture. 07/2022 back on Xeljanz because she felt the Rinvoq gave abdominal pain, chest pain, and rectal bleeding. 11/2022 -back on Rinvoq; xeljanz not effective(Gi symptoms felt due to colonic purging supplements) Rinvoq DC 05/2023 due to diarrhea, blood in stool Orencia 05/2023 not effective + dizziness, lightheadedness, falls back to Rinvoq 07/2023 effective Positive quantiferon test August 2015 after a negative test in March 2014. She did visit [place] in late 2014 Isoniazid started August 2015 and stopped late May 2016. Current Rheumatology Medication(s): Rinvoq 15mg PO daily Prednisone 5mg prn Tylenol arthritis [facility] History Vitamin D deficiency Long-term use of immunosuppressant medication Osteoarthritis of knees, bilateral Hyperlipidemia History of latent tuberculosis Cervical radicular pain Seropositive rheumatoid arthritis Social History Household Members: [facility] Are you a primary progressive care unit registered nurse to a significant other at home: No Do you presently have visiting nurse or other home services: No 75 years or older and lives alone: No Alcohol intake: never Patient Tobacco Use Status: Never used Tobacco e-Cigarette/Vaping Use: Never Used service: No Current occupational status: employed 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 [employer] Review of Systems Const Details: Review of Systems Constitutional: Denies fever, chills, weight loss ENT: Denies vision changes, eye pain or eye redness, dental caries, dry mouth GI: Denies nausea, vomiting, diarrhea, abdominal pain, change in BM Pulm: Denies SOB, MCKAY, hemoptysis, wheezing Cards: Denies chest pain, palpitations Skin: Denies Raynaud's, rash, nail changes, photosensitivity, ELECTRONIC SEMICONDUCTOR PROCESSOR: Denies headaches, weakness, paresthesias, recurrent falls MSK: as per HPI All other systems reviewed and are unremarkable except noted above Physical Exam Vital signs reviewed Physical Examination CONSTITUITIONAL Patient alert and cooperative. Well appearing and in no apparent painful distress HEENT Conjunctiva and sclera clear. ?Pupils equal round and reactive to light. ?No lymphadenopathy. ? CHEST/RESPIRATORY SYSTEM Normal respiratory effort and able to speak in complete sentences. ?Clear to auscultation bilaterally. ?No crackles, rales, rhonchi, wheezes heard. CARDIAC SYSTEM Regular rate and rhythm. ?S1 and S2 heard no murmurs. ?Radial pulses intact bilaterally MSK Hands: ?Good electric motor tester strength bilaterally. Reducible swan-neck and deformities of the fingers with tendon laxity. Wrists: ?right wrist with decreased ROM about 10-15 degrees of flex/ext. Left wrist with full ROM. No TTP or synovitis noted bilaterally Elbows: Full range of motion without pain. No tenderness, weakness, swelling, increased warmth or erythema. Shoulders: Full range of motion without pain. No tenderness, weakness, swelling, increased warmth or erythema. Knees: ?Range of motion on the right but decreased range of motion on the left. Bilateral crepitations felt left worse than right. Ankles: Full range of motion. ?No tenderness, swelling, increased warmth or erythema.? Feet: ?Negative squeeze test. ?No tenderness to palpation or swelling of the MTPs. Tender points:?No tenderness to palpation of the bilateral trapezius, supraspinatus, greater trochanters, anterior costochondral junctions, bilateral gluteal areas, bilateral suboccipital muscle insertions SKIN Skin intact without rashes. Results Reviewed Results Reviewed: Laboratory Tests 02/01/24 05/27/24 15:50 11:26 WBC 5.7 RBC 4.39 Hgb 12.4 Hct 38.9 Plt Count 329 D ESR 17 28 H Sodium 140 Potassium 4.6 Chloride 108 Carbon Dioxide 25 BUN 14 Creatinine 0.71 Calcium 9.5 Total Bilirubin 0.3 AST 35 H ALT 25 Alkaline Phosphatase 166 H C-Reactive Protein 0.11 Total Protein 8.0 Albumin 4.1 Infectious serologies 10/26/23 11:42 Hepatitis A IgM Ab Nonreactive Hep Bs Antigen Negative Hep Bs Antibody NONREACTIVE Hep B Core Total Ab Nonreactive Hepatitis C Ab (EIA) Nonreactive Assessment & Plan Assessment & Plan (1) Seropositive rheumatoid arthritis: Comment: Dx 03/2014 +++RF +++CCP deforming erosive 09/04 - side effects with MTX (oral ulcers, eye twitching). Humira started October 04, 2014 stopped after two doses due to headache, nausea, lightheadedness Cimzia since 03/06, sulfasalazine added 06/05 - not tolerated and stopped 09/05. Cimzia stopped as well 09/05 due to ineffectiveness Positive TB test - quantiferon 09/05 and isoniazid started Xeljanz started 01/27/16 - changed to Rinvoq due to failing effectiveness 11/2021. R 4th and 5th tendon rupture. 07/2022 back on Xeljanz because she felt the Rinvoq gave abdominal pain, chest pain, and rectal bleeding. 11/2022 -back on Rinvoq; xeljanz not effective(Gi symptoms felt due to colonic purging supplements) Rinvoq DC 05/2023 due to diarrhea, blood in stool Orencia 05/2023 not effective + dizziness, lightheadedness, falls back to Rinvoq 07/2023 effective Code(s): M05.9 - Rheumatoid arthritis with rheumatoid factor, unspecified Category: Medical Plan: #Seropositive erosive RA Patient is a 48-year-old female with seropositive erosive rheumatoid arthritis currently in remission. 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 Okay to take Prednisone 1-2 times per week Plan - Prednisone 5 mg daily prn - Rinvoq 15mg daily prn - RTC 4 months - Labs before visit : CBC, CMP, ESR, CRP, hepatitis panel, T spot (2) Polyarticular osteoarthritis: Code(s): M15.9 - Polyosteoarthritis, unspecified Plan: #Polyarticular OA Patient with polyarticular osteoarthritis likely complicated by her underlying rheumatoid arthritis. Okay to give periodic steroid injections to affected joints. Advised patient that if ever in the future she needs an injection she is to call the office and we will try to fit her in as soon as possible. (3) Long-term use of immunosuppressant medication: Code(s): Z79.899 - Other long term care phlebotomist (current) drug therapy Category: Medical Plan: #Long-term Use of NOAH inhibitor: Rinvoq Discussed with patient the benefits and risks of NOAH inhibitors for the management of the rheumatic condition Benefits include reduce pain, maintenance of remission and reduction of flares Risks include thromboembolic events, skin cancer and nonmelanoma skin cancers, other forms of cancer, cardiovascular alcohol and mortality Advise patient that they are to hold the medication and for up to 1 week after a febrile illness or an open skin wound Plan I spent 35 minutes reviewing the record and labs, taking a history, examining the patient, discussing the treatment plan, ordering diagnostic work up and documenting in the medical record Orders: Orders Complete Blood Count Auto Diff 4 Months M05.9 - Rheumatoid arthritis with rheumatoid factor, unspecified, Z79.899 - Other long term care phlebotomist (current) drug therapy Comprehensive Met. Panel 4 Months M05.9 - Rheumatoid arthritis with rheumatoid factor, unspecified C Reactive Protein 4 Months M05.9 - Rheumatoid arthritis with rheumatoid factor, unspecified Erythrocyte Sedimentation Rate 4 Months M05.9 - Rheumatoid arthritis with rheumatoid factor, unspecified Hepatitis A,B,C Profile 4 Months M05.9 - Rheumatoid arthritis with rheumatoid factor, unspecified T Spot TB 4 Months M05.9 - Rheumatoid arthritis with rheumatoid factor, unspecified Medications: Refilled prednisone 5 mg PO DAILY PRN 30 tabs 2RF for pain M05.9 - Rheumatoid arthritis with rheumatoid factor, unspecified Rinvoq ER (upadacitinib) 15 mg PO DAILY 30 tabs 4RF NS M05.9 - Rheumatoid arthritis with rheumatoid factor, unspecified Coding Level of Care Code Est Pt Level 4 (32020) Complex EM visit Add On G2211 Diagnoses Seropositive rheumatoid arthritis M05.9 Polyarticular osteoarthritis M15.9 Long-term use of immunosuppressant medication Z79.899
[2024-06-01 11:26] VITALS: BP 134/80; PULSE 89; O2SAT 98; BMI 30.2
--- OUTSIDE RECORDS SUMMARY | 2024-06-01 13:18 | XMS_ITS | Encounter Summary ---
Author Organization [facility] Address [address] [place] [address] Care Team Providers Care Certified Nurse Midwife Name Role Phone Tomeka Carranza MD Primary Care Prov ider Reason for Visit * Reason Onset Date Comments special procedure 04/26/2024 Encounter Details Date Type Department Care Team (Late st Contact Info) Description 04/26/2024 Telephone Gastroenterology - [place] [address] [place] [address] Isidoro Ospina MD [address] [place], [place] [phone] special procedure Social History Tobacco Use Types [...] 3:30 PM EDT Appointment Radiology Department - [address] [address] 11/29/2024 8:45 AM EDT Office Visit Adult Medicine - [place] [address] [place] [address] Tomeka Carranza MD [address] [place] [address] documented as of this encounter Visit Diagnoses Not on filedocumented in this encounter Care Teams Certified Nurse Midwife Relationship Specialty Start Date End Date Tomeka Carranza MD [address] [place] [phone] PCP - General Internal Medicine 08/07/20 documented as of this encounter
--- OUTSIDE RECORDS SUMMARY | 2024-06-01 13:18 | XMS_ITS | Clinical Summary ---
Author Organization [facility] Address [address] [place] [address] Phone Care Team Providers Care Roll Forming Machine Set Up Operator Name Role Phone Tomeka Carranza MD Primary [...] 08/29/2014 Overview (02/26/2024): 09/04 - referred to call manager 02/04 - normal [facility] upper endoscopy, colonoscopy [...] 9:00 AM EST Office Visit Adult Medicine [facility] [address] [place] [address] Tomeka Joyner MD Routine general medical examination at a health care facility (Primary Dx); Seropositive rheumatoid arthritis (CMS/HCC); Mixed hyperlipidemia 05/24/2024 Telephone [place] [facility] [address] [place] [address] Jhon Davis To complete Pt SIOH Assessment & Offer Resources. 04/26/2024 Telephone Gastroenterology - [place] 175 [facility] 175 [facility] [address] [place] [address] Isidoro Ospina MD special procedure [...] COMMENT: Normal UPPER GASTROINTESTINAL ENDOSCOPY 01/30/2015 PROCEDURE: MD UPPER GI ENDOSCOPY PERFORMED; COMMENT: Visually normal; duodenal biopsies: normal. OTHER SURGICAL HISTORY 01/05 PROCEDURE: MD UNLISTED PROCEDURE CONJUNCTIVA; COMMENT: cosmetic surgery Medical [...] 3:30 PM EDT Appointment Radiology Department - [address] [address] 11/29/2024 8:45 AM EDT Office Visit Adult Medicine - [place] [address] [place] [address] Tomeka Carranza MD [address] [place] [address] Health Maintenance Due Date Last Done Comments [...] EST Routine general medical examination at a [facility] care facility LIPID PANEL WITH REFLEX TO DIRECT LDL Routine 05/25/2024 9:53 AM EST Routine general medical examination at a [facility] facility HPV Routine 11/27/2023 DEPRESSION SCREENING [...] mg/dL LAB CHEMISTRY METHOD 05/25/2024 1:56 PM [facility] Triglycerides 88 0 - 150 mg/dL LAB CHEMISTRY METHOD 05/25/2024 1:56 PM [facility] HDL 74 >=40 mg/dL LAB CHEMISTRY METHOD 05/25/2024 1:56 PM [facility] LDL Calculated 105(H) 0 - 100 mg/dL LAB CHEMISTRY METHOD 05/25/2024 1:56 PM [facility] VLDL Cholesterol Jason 17.6 mg/dL LAB CHEMISTRY METHOD 05/25/2024 1:56 PM [facility] Non HDL Chol. (LDL+VLDL) 123 <145 mg/dL LAB CHEMISTRY METHOD 05/25/2024 1:56 PM [facility] Chol/HDL Ratio 2.7 0.0 - 4.4 LAB CHEMISTRY METHOD 05/25/2024 1:56 PM [facility] Blood Venous blood specimen / Unknown Venipuncture / Unknown 05/25/2024 9:53 AM EST 05/25/2024 9:53 AM EST us Tomeka Carranza MD LAB BLOOD ORDERABL ES Final Result [facility] [address] [place] [address], * (ABNORMAL) CBC auto differential (05/25/2024 9:53 AM EST) WBC 5.4 4.8 - 10.8 K/mcL LAB HEMETOLOGY METHOD 05/25/2024 12:09 PM [facility] RBC 4.30 3.80 - 4.80 M/mcL LAB HEMETOLOGY METHOD 05/25/2024 12:09 PM [facility] Hemoglobin 12.2 11.5 - 16.0 g/dL LAB HEMETOLOGY METHOD 05/25/2024 12:09 PM [facility] Hematocrit 39.1 35.0 - 47.0 % LAB HEMETOLOGY METHOD 05/25/2024 12:09 PM [facility] MCV 90.1 79.0 - 98.0 FL LAB HEMETOLOGY METHOD 05/25/2024 12:09 PM [facility] MCH 28.1 27.0 - 32.0 pcg LAB HEMETOLOGY METHOD 05/25/2024 12:09 PM [facility] MCHC 31.2(L) 32.0 - 37.0 g/dL LAB HEMETOLOGY METHOD 05/25/2024 12:09 PM [facility] RDW 14.6 11.0 - 15.0 % LAB HEMETOLOGY METHOD 05/25/2024 12:09 PM [facility] Platelets 316 130 - 400 K/mcL LAB HEMETOLOGY METHOD 05/25/2024 12:09 PM [facility] MPV 10.1 7.0 - 11.0 FL LAB HEMETOLOGY METHOD 05/25/2024 12:09 PM [facility] NRBC 0.0 <1.0 % LAB HEMETOLOGY METHOD 05/25/2024 12:09 PM [facility] NRBC Absolute 0.00 <0.10 K/mcL LAB HEMETOLOGY METHOD 05/25/2024 12:09 PM [facility] Neutrophils Relative 78.9 % LAB HEMETOLOGY METHOD 05/25/2024 12:09 PM [facility] Lymphocytes Relative 15.1 % LAB HEMETOLOGY METHOD 05/25/2024 12:09 PM [facility] Monocytes Relative 5.2 % LAB HEMETOLOGY METHOD 05/25/2024 12:09 PM [facility] Eosinophils Relative 0.0 % LAB HEMETOLOGY METHOD 05/25/2024 12:09 PM [facility] Basophils Relative 0.4 % LAB HEMETOLOGY METHOD 05/25/2024 12:09 PM [facility] Immature Granulocytes Relative 0.4 % LAB HEMETOLOGY METHOD 05/25/2024 12:09 PM [facility] Neutrophils Absolute 4.23 1.50 - 7.00 K/mcL LAB HEMETOLOGY METHOD 05/25/2024 12:09 PM [facility] Lymphocytes Absolute 0.81(L) 1.00 - 5.00 K/mcL LAB HEMETOLOGY METHOD 05/25/2024 12:09 PM [facility] Monocytes Absolute 0.28 0.20 - 1.00 K/mcL LAB HEMETOLOGY METHOD 05/25/2024 12:09 PM [facility] Eosinophils Absolute 0.00 0.00 - 0.50 K/mcL LAB HEMETOLOGY METHOD 05/25/2024 12:09 PM [facility] Basophils Absolute 0.02 0.00 - 0.20 K/[facility] LAB HEMETOLOGY METHOD 05/25/2024 12:09 PM [facility] Immature Granulocytes Absolute 0.02 0.00 - 0.03 K/[facility] LAB HEMETOLOGY METHOD 05/25/2024 12:09 PM [facility] Blood Venous blood specimen / Unknown Venipuncture / Unknown 05/25/2024 9:53 AM EST 05/25/2024 9:53 AM EST Tomeka Carranza MD LAB BLOOD ORDERABL ES Final Result [facility] [address] [place] [address], * (ABNORMAL) Comprehensive metabolic panel (05/25/2024 9:53 AM EST) Sodium 140 133 - 145 mmol/L LAB CHEMISTRY METHOD 05/25/2024 1:56 PM [facility] Potassium 4.6 3.5 - 5.5 mmol/L LAB CHEMISTRY METHOD 05/25/2024 1:56 PM [facility] Chloride 109 96 - 110 mmol/L LAB CHEMISTRY METHOD 05/25/2024 1:56 PM [facility] CO2 24 21 - 32 mmol/L LAB CHEMISTRY METHOD 05/25/2024 1:56 PM [facility] Anion Gap 7 3 - 11 LAB CHEMISTRY METHOD 05/25/2024 1:56 PM [facility] Glucose 99 70 - 100 mg/dL LAB CHEMISTRY METHOD 05/25/2024 1:56 PM [facility] BUN 14 5 - 25 mg/dL LAB CHEMISTRY METHOD 05/25/2024 1:56 PM [facility] Creatinine 0.66 0.50 - 1.10 mg/dL LAB CHEMISTRY METHOD 05/25/2024 1:56 PM [facility] eGFR 108 >=60 mL/min/1. 73m2 LAB CHEMISTRY METHOD 05/25/2024 1:56 PM [facility] Comment:Calculation based on the??Chronic Kidney Disease Epidemiology Collaboration (CKD-EPI) equation refit??without adjustment for race. BUN/Creatinine Ratio 21.2 LAB CHEMISTRY METHOD 05/25/2024 1:56 PM [facility] Calcium 9.1 8.5 - 10.5 mg/dL LAB CHEMISTRY METHOD 05/25/2024 1:56 PM [facility] AST (SGOT) 26 10 - 42 unit/L LAB CHEMISTRY METHOD 05/25/2024 1:56 PM [facility] ALT (SGPT) 28 10 - 60 unit/L LAB CHEMISTRY METHOD 05/25/2024 1:56 PM [facility] Alkaline Phosphatase 188(H) 42 - 121 unit/L LAB CHEMISTRY METHOD 05/25/2024 1:56 PM [facility] Total Protein 7.4 6.0 - 8.0 g/dL LAB CHEMISTRY METHOD 05/25/2024 1:56 PM [facility] Albumin 3.7 3.2 - 5.0 g/dL LAB CHEMISTRY METHOD 05/25/2024 1:56 PM [facility] Total Bilirubin 0.3 0.0 - 1.4 mg/dL LAB CHEMISTRY METHOD 05/25/2024 1:56 PM [facility] Blood Venous blood specimen / Unknown Venipuncture / Unknown 05/25/2024 9:53 AM EST 05/25/2024 9:53 AM EST Tomeka Carranza MD LAB BLOOD ORDERABL ES Final Result [facility] [address] [place] [address], * Cervical Cancer Screening: HPV (11/27/2023) Cervical [...] Most Recently Relevant to Health Maintenance Insurance [facility] Care Teams Roll Forming Machine Set Up Operator Relationship Specialty Start Date End Date Tomeka Carranza MD [address] [place] [phone] PCP - General Internal Medicine 08/07/20
--- OUTSIDE RECORDS SUMMARY | 2024-06-01 13:18 | XMS_ITS | Encounter Summary ---
Author Organization [facility] Address [address] [place] [address] Care Team Providers Care Behavioral Medical Director Name Role Phone Tomeka Carranza MD Primary Care Prov ider Reason for Visit * Reason Comments Annual Exam Encounter Details Date Type Department Care Team (Latest Contact Info) Description 05/25/2024 9:00 AM EST Office Visit Adult Medicine - [place] [address] [place] [id number] Tomeka Carranza MD [address] [place] [address] Routine general medical examination at a health [...] issues. she says she finally found a principal data architect Healthcare maintenance issues addressed Patient says he [...] 06/29/2024 3:30 PM EDT Appointment Radiology Department [address] [address] 11/29/2024 8:45 AM EDT Office Visit Adult Medicine - [address] [address] Tomeka Carranza MD [address] [place] [address] documented as of this encounter Results * (ABNORMAL) Comprehensive metabolic panel (05/25/2024 9:53 AM EST) [facility] Signature Sodium 140 133 - 145 mmol/L LAB CHEMISTRY METHOD 05/25/2024 1:56 PM EST [facility] Potassium 4.6 3.5 - 5.5 mmol/L LAB CHEMISTRY METHOD 05/25/2024 1:56 PM [facility] Chloride 109 96 - 110 mmol/L LAB CHEMISTRY METHOD 05/25/2024 1:56 PM [facility] CO2 24 21 - 32 mmol/L LAB CHEMISTRY METHOD 05/25/2024 1:56 PM [facility] Anion Gap 7 3 - 11 LAB CHEMISTRY METHOD 05/25/2024 1:56 PM [facility] Glucose 99 70 - 100 mg/dL LAB CHEMISTRY METHOD 05/25/2024 1:56 PM [facility] BUN 14 5 - 25 mg/dL LAB CHEMISTRY METHOD 05/25/2024 1:56 PM [facility] Creatinine 0.66 0.50 - 1.10 mg/dL LAB CHEMISTRY METHOD 05/25/2024 1:56 PM [facility] eGFR 108 >=60 mL/min/1. 73m2 LAB CHEMISTRY METHOD 05/25/2024 1:56 PM [facility] Comment:Calculation based on the??Chronic Kidney Disease Epidemiology Collaboration (CKD-EPI) equation refit??without adjustment for race. BUN/Creatinine Ratio 21.2 LAB CHEMISTRY METHOD 05/25/2024 1:56 PM [facility] Calcium 9.1 8.5 - 10.5 mg/dL LAB CHEMISTRY METHOD 05/25/2024 1:56 PM [facility] AST (SGOT) 26 10 - 42 unit/L LAB CHEMISTRY METHOD 05/25/2024 1:56 PM [facility] ALT (SGPT) 28 10 - 60 unit/L LAB CHEMISTRY METHOD 05/25/2024 1:56 PM [facility] Alkaline Phosphatase 188(H) 42 - 121 unit/L LAB CHEMISTRY METHOD 05/25/2024 1:56 PM [facility] Total Protein 7.4 6.0 - 8.0 g/dL LAB CHEMISTRY METHOD 05/25/2024 1:56 PM [facility] Albumin 3.7 3.2 - 5.0 g/dL LAB CHEMISTRY METHOD 05/25/2024 1:56 PM [facility] Total Bilirubin 0.3 0.0 - 1.4 mg/dL LAB CHEMISTRY METHOD 05/25/2024 1:56 PM [facility] Blood Venous blood specimen / Unknown Venipuncture / Unknown 05/25/2024 9:53 AM EST 05/25/2024 9:53 AM EST us Tomeka Carranza MD LAB BLOOD ORDERABL ES Final Result [facility] [address] [place] [address], [place] [phone] * (ABNORMAL) Lipid panel with reflex to direct LDL (05/25/2024 9:53 AM EST) Cholesterol 197 0 - 200 mg/dL LAB CHEMISTRY METHOD 05/25/2024 1:56 PM [facility] Triglycerides 88 0 - 150 mg/dL LAB CHEMISTRY METHOD 05/25/2024 1:56 PM [facility] HDL 74 >=40 mg/dL LAB CHEMISTRY METHOD 05/25/2024 1:56 PM [facility] LDL Calculated 105(H) 0 - 100 mg/dL LAB CHEMISTRY METHOD 05/25/2024 1:56 PM [facility] VLDL Cholesterol Jason 17.6 mg/dL LAB CHEMISTRY METHOD 05/25/2024 1:56 PM [facility] Non HDL Chol. (LDL+VLDL) 123 <145 mg/dL LAB CHEMISTRY METHOD 05/25/2024 1:56 PM [facility] Chol/HDL Ratio 2.7 0.0 - 4.4 LAB CHEMISTRY METHOD 05/25/2024 1:56 PM [facility] Blood Venous blood specimen / Unknown Venipuncture / Unknown 05/25/2024 9:53 AM EST 05/25/2024 9:53 AM EST us Tomeka Carranza MD LAB BLOOD ORDERABL ES Final [facility] [address] [place] [address], documented in this encounter Visit Diagnoses Diagnosis [...] documented as of this encounter Care Teams Behavioral Medical Director Relationship Specialty Start Date End Date Tomeka Carranza MD [address] [place] [phone] PCP - General Internal Medicine 08/07/20 documented as of this encounter
--- OUTSIDE RECORDS SUMMARY | 2024-06-01 13:18 | XMS_ITS ---
Author Organization [facility] Address [address] [place] [address] Phone Care Team Providers Care White Sugar Boiler Name Role Phone Tomeka Carranza MD Primary Care Prov ider Community Health Worker Program Status:Closed (Closed) Start date:05/24/2024 Enrollment date:05/24/2024 Enrollment reason:Referred from clinic End date:05/24/2024 Close reason:Completed program Overview Community Health Worker Program Continued Care and Services Coordination
--- OUTSIDE RECORDS SUMMARY | 2024-06-01 13:18 | XMS_ITS | Encounter Summary ---
Author Organization [facility] [place] [address] Care Team Providers Care Postal Delivery Officer Name Role Phone Tomeka Carranza MD Primary Care Prov ider Reason for Visit * Reason Onset Date Comments To complete Pt SIOH Assessment & Offer Resources . 05/24/2024 Encounter Details Date Type Department Care Team (Late st Contact Info) Description 05/24/2024 Telephone [place] [facility] [address] [place] [address] Jhon Davis To complete Pt [...] at the moment. [facility] Screening: [facility]. Follow up plan: [facility] will follow up on the next Dr's Appointment for another SIOH Assessment if necessary. [facility] [address] [address]. Jhon Davis, GAYATRI, QBS ACO Case Management Community Health Worker II Office: [phone] documented in this encounter Plan of Treatment Upcoming Encounters Date Type Department Care Team (Late st Contact Info) Description 06/29/2024 3:30 PM EDT Appointment Radiology Department - [address] [address] 11/29/2024 8:45 AM EDT Office Visit Adult Medicine - [place] [address] [place] [address] Tomeka Carranza MD [address] [place] [address] documented as of this encounter Visit Diagnoses Not on filedocumented in this encounter Additional Health Concerns Assessment Noted Time PHQ-9 Depression Total Score: 0 05/20/19 25 8:17 AM EST documented as of this encounter Care Teams Postal Delivery Officer Relationship Specialty Start Date End Date Tomeka Carranza MD [address] [place] [address] PCP - General Internal Medicine 08/07/20 documented as of this encounter
== END 2024-06-01 11:47 | disposition home or self-care (01) ==
LOC: HO.RHE 11:17
PROVIDERS: PCP Internal Medicine; Visit Provider Student in an Organized Health Care Education/Training Program
DX: M05.79 Rheumatoid arthritis with rheumatoid factor of multiple sites without organ or systems involvement (principal); M15.9 Polyosteoarthritis, unspecified; Z79.899 Other long term (current) drug therapy
CPT/HCPCS: 99214; G2211

== ENCOUNTER → 2024-06-01 11:17 | Outpatient (BNVA) | payer OTHER, SELFPAY | PROVIDERS: PCP Internal Medicine; Visit Provider Student in an Organized Health Care Education/Training Program | DX: M05.9 Rheumatoid arthritis with rheumatoid factor, unspecified (principal); M15.9 Polyosteoarthritis, unspecified; Z79.899 Other long term (current) drug therapy | CPT/HCPCS: 99212 ==

== ENCOUNTER 2024-09-27 14:18 | Outpatient (REF) | payer OTHER, SELFPAY ==
[2024-09-27 14:31] LABS: MANUAL DIFF FLAG NO
--- OUTSIDE RECORDS SUMMARY | 2024-09-27 15:12 | XMS_ITS | Clinical Summary ---
Author Organization [facility] Address [address] [place] [address] Phone Care Team Providers Care Diesel Maintenance Technician Name Role Phone Tomeka Carranza MD Primary Care Prov ider Allergies Active Allergy Reactions Criticality Noted Date Comments Morphine 12/02/2016 Medications upadacitinib (Rinvoq) 15 mg tablet extended release 24 hr Take 1 Tablet by mouth daily. 4 Active acetaminophen (TYLENOL 8 HOUR) 650 mg 8 hr tablet Take 1 tablet (650 mg total) by mouth every 8 (eight) hours if needed for mild pain. Tylenol arthritis Active atorvastatin (LIPITOR) 20 mg tablet Take 1 tablet (20 mg total) by mouth 1 (one) time each day. 90 each 1 5 11/22/19 25 Active Active Problems Problem Noted Date Diagnosed Date [...] 08/29/2014 Overview (02/26/2024): 09/04 - referred to [facility] 02/04 - normal [facility] upper endoscopy, colonoscopy with normal biopsies Numbness and tingling in right hand 09/02/2013 Overview (02/26/2024): Dr. Le - EMG consistent with mild carpal tunnel syndrome, not verifiable clinically Seropositive rheumatoid arth ritis ([facility] V24, [facility] V28) 08/26/2013 Overview (02/26/2024): Dr. Sousa 09/03 - [...] Encounters Date Type Department Care Team Description 08/09/2024 10:19 AM EDT - 08/09/2024 11:59 PM EDT Hospital Encounter Radiology Department - [address] [phone] Abnormal mammogram Discharge Disposition: Home or Self Care 08/09/2024 10:19 AM EDT - 08/09/2024 11:59 PM EDT Hospital Encounter Radiology Department - [address] [place] [phone] Abnormal mammogram Discharge Disposition: Home or Self Care 08/01/2024 5:51 PM EDT - 08/01/2024 11:59 PM EDT Hospital Encounter Radiology Department - [address] [phone] Encounter for screening mammogram for breast cancer Discharge Disposition: Home or Self Care from Last 3 Months Immunizations Name Administration [...] COMMENT: Normal UPPER GASTROINTESTINAL ENDOSCOPY 01/30/2015 PROCEDURE: [place] UPPER GI ENDOSCOPY PERFORMED; COMMENT: Visually normal; duodenal biopsies: normal. OTHER SURGICAL HISTORY 01/05 PROCEDURE: [place] UNLISTED PROCEDURE CONJUNCTIVA; COMMENT: cosmetic surgery Medical [...] 08/26/2013 DX:El evated rheumatoid factor Rheumatoid arthritis (CMS/HC C V24, CMS/HCC V28) 04/07/2014 DX:Rheumatoid arthritis (HCC ) Osteoarthritis of both knees 05/26/2018 DX: Osteoarthritis [...] Sexual Orientation Not on file Obstetrics History Para Term AB IAB SAB Ectopic Multiple Livin g Live Births 2 2 2 2 Date Outcome GA Total Labor Labor/2nd/3rd Weight Sex Type Anes PTL Terrie A1 A5 Name Clin Term Term Last Filed Vital Signs Vital Sign Reading Time Taken Comments Blood Pressure 122/89 05/25/2024 8:58 AM EST Pulse 88 05/25/2024 8:58 AM EST Temperature 36.4 C (97.6 F) 05/25/2024 8:58 AM EST Respiratory Rate - - Oxygen Saturation - - Inhaled Oxygen Concentration - - Weight 70.5 kg (155 lb 6.4 oz) 05/25/2024 8:58 A M EST Height 149 cm (4' 10.66 ) 05/25/2024 8:58 AM EST Body Mass Index 31.75 05/25/2024 8:58 AM EST Plan of Treatment Upcoming Encounters Date Type Department Care Team (Late st Contact Info) Description 11/29/2024 8:45 AM EDT Office Visit Adult Medicine [address] [phone] Tomeka Carranza MD [address] [place] [address] Health Maintenance Due Date Last Done Comments Colorectal Cancer Screening: Colonoscopy 02/22/2022 Pneumococcal Vaccine: 50+ Years (1 of 1 - PCV) 2024 Zoster Vaccines (1 of 2) 2024 Influenza Vaccine (#1) 2024 02/03/2024, 2019 Cervical Cancer Screening: HPV 11/26/2024 11/27/2023 Depression Screening 05/20/2025 05/20/2024, 04/21/19 24 Social Influencers of Health Screening 05/20/2025 05/20/2024 Breast Cancer Screening 08/09/2026 08/10/19 25, 08/01/2024, 10/15/2020, Additional history exists Cholesterol Screening (Lipid Panel) 05/25/2029 05/25/2024, 04/21/2023 DTaP,Tdap,and Td Vaccines (4 - Td or Tdap) 04/21/2033 04/21/2023, 04/19/2013, 10/31/2003 Hepatitis C Screening Completed 04/07/2014 COVID-19 Vaccine Discontinued 01/17/2021, , 06/15/2020 HIB Vaccines Aged Out No longer eligi [...] age to complete this topic Meningococcal B Vaccine Aged Out No l onger eligible based on patient's age to complete this topic Pneumococcal Vaccine: Pediatrics (0 to 5 Years) and At-Risk Patients (6 to 49 Years) Aged Out No longer eligible based on patient's age to complete this topic RSV Immunization Patients Under 20 months Aged Out No longer eligible based on patient's age to complete this topic Varicella Vaccines Aged Out No longer eligible based on patient's age to complete this topic Procedures Procedure Name Priority Date/Time Associated Diagnosis Comments US BREAST LIMITED LEFT Routine 08/09/2024 10:40 AM EDT Abnormal mammogram MG MAMMO DIGITAL DIAGNOSTIC W MARIELY LEFT Routine 08/09/2024 10:24 AM EDT Abnormal mammogram MG MAMMO DIGITAL SCREENING W MARIELY BILAT Routine 08/01/2024 6:11 PM EDT Encounter for screening mammogram for breast cancer LIPID PANEL WITH REFLEX TO DIRECT LDL Routine 05/25/2024 9:53 AM EST Routine general medical examination at a [facility] facility HPV Routine 11/27/2023 DEPRESSION SCREENING Routine 04/21/2023 HEPATITIS C SCREENING Routine 04/07/2014 from Last 3 Months or Most Recently Relevant to Health Maintenance Results * US Breast Limited Left (08/09/2024 10:40 AM EDT) Anatomical Region Laterality Modality Breast Left Ultrasound 08/09/2024 11:1 8 AM EDT Impressions 08/09/2024 11:26 AM EDT No suspicious finding on callback imaging. Routine annual screening mammography recommended. BREAST DENSITY: C - The breasts are heterogeneously dense which may obscure small masses. BI-RADS CATEGORY: 1 - NEGATIVE RECOMMENDATION: Screening bilateral mammogram is recommended in 1 year. MAMMO LOCATION: [facility], [address] [place] [address], [id number], . -------- FINAL REPORT -------- Dictated By: Lore Ramesh Dictated Date: 08/09/2024 11:18 ET Assigned Physician: Lore Ramesh Reviewed and Electronically Signed By: Lore Ramesh Signed Date: 08/09/2024 11:26 ET Workstation ID: [id number] Transcribed By: Self Edit Transcribed Date: 08/09/2024 11:18 ET Narrative 08/09/2024 11:26 AM EDT EXAM: MG MAMMO DIGITAL DIAGNOSTIC W MARIELY LEFT, US BREAST LIMITED LEFT HISTORY: Call back from a screening mammogram. FINDINGS: Spot compression CC view performed with tomosynthesis. The asymmetry in the outer left breast at the middle depth does not persist. No mass or architectural distortion apparent. Per tomosynthesis, the abnormality should be in the lower breast. Targeted sonography was subsequently performed in the lower outer left breast as a precaution due to dense breast tissue without a solid or cystic lesion identified. Nipple inversion observed during scanning which the patient reports is chronic. Sonography was then performed in the retroareolar breast without a solid or cystic lesion or ductal ectasia identified. Procedure Note Lore Ramesh MD - 08/09/2024 EXAM: MG MAMMO DIGITAL DIAGNOSTIC W MARIELY LEFT, US BREAST LIMITED LEFT HISTORY: Call back from a screening mammogram. FINDINGS: Spot compression CC view performed with tomosynthesis. The asymmetry inthe outer left breast at the middle depth does not persist. No mass orarchitectural distortion apparent. Per tomosynthesis, the abnormalityshould be in the lower breast. Targeted sonography was subsequently performed in the lower outer leftbreast as a precaution due to dense breast tissue without a solid orcystic lesion identified. Nipple inversion observed during scanning whichthe patient reports is chronic. Sonography was then performed in theretroareolar breast without a solid or cystic lesion or ductal ectasiaidentified. IMPRESSION: No suspicious finding on callback imaging. Routine annual screeningmammography recommended. BREAST DENSITY: C - The breasts are heterogeneously dense which mayobscure small masses. BI-RADS CATEGORY: 1 - NEGATIVE RECOMMENDATION: Screening bilateral mammogram is recommended in 1 year. MAMMO LOCATION: [facility], [address] [place] [address], [id number], . -------- FINAL REPORT -------- Dictated By: Lore Ramesh Dictated Date: 08/09/2024 11:18 ET Assigned Physician: Lore Ramesh Reviewed and Electronically Signed By: Lore Ramesh Signed Date: 08/09/2024 11:26 ET Workstation ID: [id number] Transcribed By: Self Edit Transcribed Date: 08/09/2024 11:18 ET us Tomeka Carranza MD IMG US PROCEDURES Final Result * MG Mammo Digital Diagnostic w Mariely Left (08/09/2024 10:24 AM EDT) Anatomical Region Laterality Modality Breast Left Mammography 08/09/2024 11:1 8 AM EDT Impressions 08/09/2024 11:26 AM EDT No suspicious finding on callback imaging. Routine annual screening mammography recommended. BREAST DENSITY: C - The breasts are heterogeneously dense which may obscure small masses. BI-RADS CATEGORY: 1 - NEGATIVE RECOMMENDATION: Screening bilateral mammogram is recommended in 1 year. MAMMO LOCATION: [facility], [address] [place] [address], [phone], . -------- FINAL REPORT -------- Dictated By: Lore Ramesh Dictated Date: 08/09/2024 11:18 ET Assigned Physician: Lore Ramesh Reviewed and Electronically Signed By: Lore Ramesh Signed Date: 08/09/2024 11:26 ET Workstation ID: [id number] Transcribed By: Self Edit Transcribed Date: 08/09/2024 11:18 ET Narrative 08/09/2024 11:26 AM EDT EXAM: MG MAMMO DIGITAL DIAGNOSTIC W MARIELY LEFT, US BREAST LIMITED LEFT HISTORY: Call back from a screening mammogram. FINDINGS: Spot compression CC view performed with tomosynthesis. The asymmetry in the outer left breast at the middle depth does not persist. No mass or architectural distortion apparent. Per tomosynthesis, the abnormality should be in the lower breast. Targeted sonography was subsequently performed in the lower outer left breast as a precaution due to dense breast tissue without a solid or cystic lesion identified. Nipple inversion observed during scanning which the patient reports is chronic. Sonography was then performed in the retroareolar breast without a solid or cystic lesion or ductal ectasia identified. Procedure Note Lore Ramesh MD - 08/09/2024 EXAM: MG MAMMO DIGITAL DIAGNOSTIC W MARIELY LEFT, US BREAST LIMITED LEFT HISTORY: Call back from a screening mammogram. FINDINGS: Spot compression CC view performed with tomosynthesis. The asymmetry inthe outer left breast at the middle depth does not persist. No mass orarchitectural distortion apparent. Per tomosynthesis, the abnormalityshould be in the lower breast. Targeted sonography was subsequently performed in the lower outer leftbreast as a precaution due to dense breast tissue without a solid orcystic lesion identified. Nipple inversion observed during scanning whichthe patient reports is chronic. Sonography was then performed in theretroareolar breast without a solid or cystic lesion or ductal ectasiaidentified. IMPRESSION: No suspicious finding on callback imaging. Routine annual screeningmammography recommended. BREAST DENSITY: C - The breasts are heterogeneously dense which mayobscure small masses. BI-RADS CATEGORY: 1 - NEGATIVE RECOMMENDATION: Screening bilateral mammogram is recommended in 1 year. MAMMO LOCATION: [facility], [address] [place] [address], [id number], . -------- FINAL REPORT -------- Dictated By: Lore Ramesh Dictated Date: 08/09/2024 11:18 ET Assigned Physician: Lore Ramesh Reviewed and Electronically Signed By: Lore Ramesh Signed Date: 08/09/2024 11:26 ET Workstation ID: [id number] Transcribed By: Self Edit Transcribed Date: 08/09/2024 11:18 ET us Tomeka Carranza MD IMG BI PROCEDURES Final Result * (ABNORMAL) MG Mammo Digital Screening w Mariely bilat (08/01/2024 6:11 PM EDT) Anatomical Region Laterality Modality Breast Bilateral Mammography 08/02/2024 3:31 PM EDT Impressions 08/02/2024 3:35 PM EDT 1. Right: No mammographic evidence of malignancy 2. Left: Indeterminate cc view and lateral middle depth asymmetry 3. Heterogeneous breast parenchyma BI-RADS CATEGORY: 0 - INCOMPLETE - NEED ADDITIONAL IMAGING EVALUATION RECOMMENDATION: Additional left breast imaging recommended. Left breast CC spot compression, targeted ultrasound Mammo Location: [facility], [address] [place] [address], [phone], . -------- FINAL REPORT -------- Dictated By: Vladislav Marino Dictated Date: 08/02/2024 15:31 ET Assigned Physician: Vladislav Marino Reviewed and Electronically Signed By: Vladislav Marino Signed Date: 08/02/2024 15:35 ET Workstation ID: [id number] Transcribed By: Self Edit Transcribed Date: 08/02/2024 15:31 ET Narrative 08/02/2024 3:35 PM EDT A BILATERAL DIGITAL 3D SCREENING MAMMOGRAPHY HISTORY: Routine screening. No family history of breast cancer. COMPARISON: Mammogram from 10/15/2020 Technique: Bilateral full field digital mammography (3D) was performed using standard CC and MLO projections CAD was used to evaluate this mammogram. FINDINGS: Right: No suspicious masses, groups of microcalcification or areas of architectural distortion identified. Stable typically benign parenchymal asymmetries. Left: Indeterminate CC lateral middle depth asymmetry. BREAST DENSITY: C - The breasts are heterogeneously dense which may obscure small masses. Procedure Note Vladislav Marino MD - 08/02/2024 A BILATERAL DIGITAL 3D SCREENING MAMMOGRAPHY HISTORY: Routine screening. No family history of breast cancer. COMPARISON: Mammogram from 10/15/2020 Technique: Bilateral full field digital mammography (3D) was performedusing standard CC and MLO projections CAD was used to evaluate this mammogram. FINDINGS: Right: No suspicious masses, groups of microcalcification or areas ofarchitectural distortion identified. Stable typically benign parenchymalasymmetries. Left: Indeterminate CC lateral middle depth asymmetry. BREAST DENSITY: C - The breasts are heterogeneously dense which mayobscure small masses. IMPRESSION: 1. Right: No mammographic evidence of malignancy 2. Left: Indeterminate cc view and lateral middle depth asymmetry 3. Heterogeneous breast parenchyma BI-RADS CATEGORY: 0 - INCOMPLETE - NEED ADDITIONAL IMAGING EVALUATION RECOMMENDATION: Additional left breast imaging recommended. Left breast CC spotcompression, targeted ultrasound Mammo Location: [facility], [address] [place] [address], [id number], . -------- FINAL REPORT -------- Dictated By: Vladislav Marino Dictated Date: 08/02/2024 15:31 ET Assigned Physician: Vladislav Marino Reviewed and Electronically Signed By: Vlaidslav Marino Signed Date: 08/02/2024 15:35 ET Workstation ID: [id number] Transcribed By: Self Edit Transcribed Date: 08/02/2024 15:31 ET us Tomeka Carranza MD IMG BI PROCEDURES Final Result * (ABNORMAL) Lipid panel with reflex to direct LDL (05/25/2024 9:53 AM EST) Cholesterol 197 0 - 200 mg/dL LAB CHEMISTRY METHOD 05/25/2024 1:56 PM EST [facility] Triglycerides 88 0 - 150 mg/dL LAB CHEMISTRY METHOD 05/25/2024 1:56 PM [facility] HDL 74 >=40 mg/dL LAB CHEMISTRY METHOD 05/25/2024 1:56 PM [facility] LDL Calculated 105(H) 0 - 100 mg/dL LAB CHEMISTRY METHOD 05/25/2024 1:56 PM [facility] VLDL Cholesterol Jason 17.6 mg/dL LAB CHEMISTRY METHOD 05/25/2024 1:56 PM [facility] Non HDL Chol. (LDL+VLDL) 123 <145 mg/dL LAB CHEMISTRY METHOD 05/25/2024 1:56 PM [facility] Chol/HDL Ratio 2.7 0.0 - 4.4 LAB CHEMISTRY METHOD 05/25/2024 1:56 PM [facility] Blood Venous blood specimen / Unknown Venipuncture / Unknown 05/25/2024 9:53 AM EST 05/25/2024 9:53 AM EST Tomeka Carranza MD LAB BLOOD ORDERABL ES Final Result [facility] [address] [place] [address], * Cervical Cancer Screening: HPV (11/27/2023) Pathologist [facility] Cervical Cancer Screening: HPV Positive, Abstracted Historical Provider HEALTH MAINTENANCE Final Result * Depression Screening (04/21/2023) [facility] Depression Screening Abstracted Historical Provider HEALTH MAINTENANCE Final Result * Hepatitis C Screening (04/07/2014) Pathologist [facility] Hepatitis C Screening Abstracted Historical Provider HEALTH MAINTENANCE Final Result from Last 3 Months or Most Recently Relevant to Health Maintenance Insurance [facility] Care Teams Diesel Maintenance Technician Relationship Specialty Start Date End Date Tomeka Carranza MD [address] [place] [id number] PCP - General Internal Medicine 08/07/20
[2024-09-27 15:29] LABS: Hematocrit 39.1 % (37.0-47.0); Hemoglobin 12.8 g/dl (12.0-16.0); Imm Gran Abs Auto 0.02 X10*3/uL (0.00-0.03); Imm Gran Pct Auto 0.4 % (0.0-0.4); Lymphocytes Absolute Auto 1.6 X10*3/uL (1.2-4.9); Mean Corpuscular HGB Conc 32.7 g/dl (31.0-35.0); Mean Corpuscular Hemoglobin 29.1 pg (27.0-33.0); Mean Corpuscular Volume 88.9 fL (80.0-98.0); NRBC Abs Auto 0.000 X10*3/uL (0.0-0.012); NRBC Pct Auto 0.0 /100WBC (0.0-0.2); Platelet Count 286 X10*3/uL (160-400); Red Blood Count 4.40 X10*6/uL (4.20-5.50); White Blood Count 5.0 X10*3/uL (4.8-10.8)
[2024-09-27 15:53] LABS: Alanine Aminotransferase 28 U/L (0-31); Albumin Level 4.3 g/dL (3.5-5.0); Alkaline Phosphatase 124 U/L (39-117); Anion Gap 10 (12-20); Aspartate Amino Transferase 36 U/L (5-31); Blood Urea Nitrogen 14 mg/dL (9-16); Calcium 9.0 mg/dL (8.4-10.2); Carbon Dioxide 25 mmol/L (22-29); Chloride 109 mmol/L (96-108); Estimated Glomerular Filt Rate > 60; Potassium 4.3 mmol/L (3.3-5.1); Sodium 140 mmol/L (135-145); Total Protein 7.2 g/dL (6.5-8.0)
[2024-09-28 03:39] LABS: HBS Num1 0.50 mIU/mL (0-7.99); HBc Num1 0.07 S/CO (0.00-0.79); HBsAGNum1 0.38 S/CO (0.00-0.99); Hepatitis A Antibody IgM 0.20 Index (0-0.79); Hepatitis B Surface Antigen Negative (Negative); ~HepC Num1 0.13 S/CO (0.00-0.79); ~Hepatitis A Antibody IgM Nonreactive (Nonreactive); ~Hepatitis B Surface Antibody NONREACTIVE (Nonreactive); ~Hepatitis C Antibody Nonreactive (Nonreactive)
[2024-09-30 21:38] LABS: TSpotTB Invalid (Negative)
== END 2024-09-27 14:19 | disposition home or self-care (01) ==
LOC: HO.LAB 14:18
PROVIDERS: PCP Internal Medicine; Visit Provider Student in an Organized Health Care Education/Training Program
DX: M05.9 Rheumatoid arthritis with rheumatoid factor, unspecified (principal); Z79.60 Long term (current) use of unspecified immunomodulators and immunosuppressants; Z79.899 Other long term (current) drug therapy
CPT/HCPCS: 36415; 80053; 85025; 85652; 86140; 86481; 86704; 86706; 86709; 86803; 87340

== ENCOUNTER 2024-10-04 13:48 | Outpatient (AMB) | payer OTHER, SELFPAY ==
[2024-10-04 13:57] VITALS: BP 120/70; PULSE 77; O2SAT 97; BMI 31.2
--- NOTE | 2024-10-04 13:57 | MHC.OFFVIS ---
Vital Signs 10/04/24 13:57 Height 5 ft Weight 159 lb 13.362 oz BMI 31.2 BP 120/70 Blood Pressure Location Lt brachial Position Sitting Pulse 77 Pulse Source Pulse Oximeter Pulse Oximetry (%) 97 Oxygen Delivery Method Room Air Intake Visit Reasons: 4 mnts f/u for RA Intake Note: Patient presents for follow up on RA. Patient is requesting prednisone and piroxicam today. Allergies morphine Allergy (Unknown, Verified 10/04/24 14:01) Unknown Medication List - Last Reconciled 10/04/24 by Kelin Salazar MD atorvastatin 20 mg PO DAILY piroxicam 10 mg PO DAILY PRN prednisone 5 mg PO DAILY PRN Rinvoq ER (upadacitinib) 15 mg PO DAILY NS HPI Comments Details: Patient is a 48-year-old female with history of latent TB status post treatment, hyperlipidemia, polyarticular osteoarthritis and seropositive erosive rheumatoid arthritis here today for follow up Interval History: Patient last seen 06/01/24 - overall well - takes Tylenol arthritis every other day - Stopped piroxicam - Takes prednisone 5mg twice a week. 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 Humira started October 04, 2014 stopped after two doses due to headache, nausea, lightheadedness Cimzia since 03/06, sulfasalazine added 06/05 - not tolerated and stopped 09/05. Cimzia stopped as well 09/05 due to ineffectiveness Positive TB test - quantiferon 09/05 and isoniazid started Xeljanz started 01/27/16 - changed to Rinvoq due to failing effectiveness 11/2021. R 4th and 5th tendon rupture. 07/2022 back on Xeljanz because she felt the Rinvoq gave abdominal pain, chest pain, and rectal bleeding. 11/2022 -back on Rinvoq; xeljanz not effective(Gi symptoms felt due to colonic purging supplements) Rinvoq DC 05/2023 due to diarrhea, blood in stool Orencia 05/2023 not effective + dizziness, lightheadedness, falls back to Rinvoq 07/2023 effective Positive quantiferon test August 2015 after a negative test in March 2014. She did visit [place] in late 2014 Isoniazid started August 2015 and stopped late May 2016. Current Rheumatology Medication(s): Rinvoq 15mg PO daily Prednisone 5mg prn Tylenol arthritis [facility] Medical History Vitamin D deficiency Long-term use of immunosuppressant medication Osteoarthritis of knees, bilateral Hyperlipidemia History of latent tuberculosis Cervical radicular pain Seropositive rheumatoid arthritis Social History Household Members: Family [facility] Are you a primary career information specialist to a significant other at home: No Do you presently have visiting nurse or other home services: No 75 years or older and lives alone: No Alcohol intake: never Patient Tobacco Use Status: Never used Tobacco e-Cigarette/Vaping Use: Never Used service: No Current occupational status: employed Current occupation: [employer] Review of Systems Const Details: Review of Systems Constitutional: Denies fever, chills, weight loss ENT: Denies vision changes, eye pain or eye redness, dental caries, dry mouth GI: Denies nausea, vomiting, diarrhea, abdominal pain, change in BM Pulm: Denies SOB, MCKAY, hemoptysis, wheezing Cards: Denies chest pain, palpitations Skin: Denies Raynaud's, rash, nail changes, photosensitivity, AMUSEMENT OR RECREATION CARD CHECKER: Denies headaches, weakness, paresthesias, recurrent falls MSK: as per HPI All other systems reviewed and are unremarkable except noted above Physical Exam Vital Signs: Last Vital Signs Pulse 77 10/04/24 13:57 BP 120/70 10/04/24 13:57 Pulse Ox 97 10/04/24 13:57 Oxygen Delivery Method Room Air 10/04/24 13:57 BMI result Body Mass Index 31.2 Vital signs reviewed Physical Examination CONSTITUITIONAL Patient alert and cooperative. Well appearing and in no apparent painful distress HEENT Conjunctiva and sclera clear. ?Pupils equal round and reactive to light. ?No lymphadenopathy. ? CHEST/RESPIRATORY SYSTEM Normal respiratory effort and able to speak in complete sentences. ?Clear to auscultation bilaterally. ?No crackles, rales, rhonchi, wheezes heard. CARDIAC SYSTEM Regular rate and rhythm. ?S1 and S2 heard no murmurs. ?Radial pulses intact bilaterally MSK Hands: ?Good radiation therapy technician strength bilaterally. Reducible swan-neck and deformities of the fingers with tendon laxity. Wrists: ?right wrist with decreased ROM about 10-15 degrees of flex/ext. Left wrist with full ROM. No TTP or synovitis noted bilaterally Elbows: Full range of motion without pain. No tenderness, weakness, swelling, increased warmth or erythema. Shoulders: Full range of motion without pain. No tenderness, weakness, swelling, increased warmth or erythema. Knees: ?Range of motion on the right but decreased range of motion on the left. Bilateral crepitations felt left worse than right. TTP of the right greater trochanteric bursa Ankles: Full range of motion. ?No tenderness, swelling, increased warmth or erythema.? Feet: ?Negative squeeze test. ?No tenderness to palpation or swelling of the MTPs. Tender points:?No tenderness to palpation of the bilateral trapezius, supraspinatus, greater trochanters, anterior costochondral junctions, bilateral gluteal areas, bilateral suboccipital muscle insertions SKIN Skin intact without rashes. Results Reviewed Results Reviewed: Laboratory Tests 09/27/24 14:30 WBC 5.0 RBC 4.40 Hgb 12.8 Plt Count 286 ESR 19 Sodium 140 Potassium 4.3 Chloride 109 H Carbon Dioxide 25 BUN 14 Creatinine 0.68 AST 36 H ALT 28 Alkaline Phosphatase 124 H C-Reactive Protein < 0.10 Laboratory Tests 09/27/24 14:30 Hepatitis A IgM Ab Nonreactive Hep Bs Antigen Negative Hep Bs Antibody NONREACTIVE Hep B Core Total Ab Nonreactive Hepatitis C Ab (EIA) Nonreactive Assessment & Plan Assessment & Plan (1) Seropositive rheumatoid arthritis: Comment: Dx 03/2014 +++RF +++CCP deforming erosive 09/04 - side effects with MTX (oral ulcers, eye twitching). Humira started October 04, 2014 stopped after two doses due to headache, nausea, lightheadedness Cimzia since 03/06, sulfasalazine added 06/05 - not tolerated and stopped 09/05. Cimzia stopped as well 09/05 due to ineffectiveness Positive TB test - quantiferon 09/05 and isoniazid started Xeljanz started 01/27/16 - changed to Rinvoq due to failing effectiveness 11/2021. R 4th and 5th tendon rupture. 07/2022 back on Xeljanz because she felt the Rinvoq gave abdominal pain, chest pain, and rectal bleeding. 11/2022 -back on Rinvoq; xeljanz not effective(Gi symptoms felt due to colonic purging supplements) Rinvoq DC 05/2023 due to diarrhea, blood in stool Orencia 05/2023 not effective + dizziness, lightheadedness, falls back to Rinvoq 07/2023 effective Code(s): M05.9 - Rheumatoid arthritis with rheumatoid factor, unspecified Category: Medical Plan: #Seropositive erosive RA Patient is a 48-year-old female with seropositive erosive rheumatoid arthritis currently in remission. Okay to take Prednisone 1-2 times per week Plan - Prednisone 5 mg daily prn - Rinvoq 15mg daily prn - RTC 4 months - Labs before visit : CBC, CMP, ESR, CRP (2) Polyarticular osteoarthritis: Code(s): M15.9 - Polyosteoarthritis, unspecified Plan: #Polyarticular OA Patient with polyarticular osteoarthritis likely complicated by her underlying rheumatoid arthritis. Okay to give periodic steroid injections to affected joints. Advised patient that if ever in the future she needs an injection she is to call the office and we will try to fit her in as soon as possible. Piroxicam prn (3) Long-term use of immunosuppressant medication: Code(s): Z79.899 - Other correction (current) drug therapy Category: Medical Plan: #Long-term Use of NOAH inhibitor: Rinvoq Discussed with patient the benefits and risks of NOAH inhibitors for the management of the rheumatic condition Benefits include reduce pain, maintenance of remission and reduction of flares Risks include thromboembolic events, skin cancer and nonmelanoma skin cancers, other forms of cancer, cardiovascular alcohol and mortality Advise patient that they are to hold the medication and for up to 1 week after a febrile illness or an open skin wound Plan I spent 30 minutes reviewing the record and labs, taking a history, examining the patient, discussing the treatment plan, ordering diagnostic work up and documenting in the medical record Orders: Orders Complete Blood Count Auto Diff 6 Months M05.9 - Rheumatoid arthritis with rheumatoid factor, unspecified C Reactive Protein 6 Months M05.9 - Rheumatoid arthritis with rheumatoid factor, unspecified Comprehensive Met. Panel 6 Months M05.9 - Rheumatoid arthritis with rheumatoid factor, unspecified Erythrocyte Sedimentation Rate 6 Months M05.9 - Rheumatoid arthritis with rheumatoid factor, unspecified Medications: Refilled piroxicam Do not take with steroids 10 mg PO DAILY PRN 30 caps 4RF pain M17.0 - Bilateral primary osteoarthritis of knee Rinvoq ER (upadacitinib) 15 mg PO DAILY 30 tabs 5RF NS M05.9 - Rheumatoid arthritis with rheumatoid factor, unspecified prednisone 5 mg PO DAILY PRN 30 tabs 2RF for pain M05.9 - Rheumatoid arthritis with rheumatoid factor, unspecified prednisone 5 mg PO DAILY PRN 30 tabs 5RF for pain M05.9 - Rheumatoid arthritis with rheumatoid factor, unspecified piroxicam Do not take with steroids 10 mg PO DAILY PRN 30 caps 5RF pain M17.0 - Bilateral primary osteoarthritis of knee Coding Level of Care Code Est Pt Level 4 (30439) Complex EM visit Add On G2211 Diagnoses Seropositive rheumatoid arthritis M05.9 Polyarticular osteoarthritis M15.9 Long-term use of immunosuppressant medication Z79.899
--- OUTSIDE RECORDS SUMMARY | 2024-10-04 15:10 | XMS_ITS | Clinical Summary ---
Author Organization [facility] Address [address] [place] [address] Phone Care Team Providers Care Refueling Ramp Supervisor Name Role Phone Tomeka Carranza MD Primary [...] 08/29/2014 Overview (02/26/2024): 09/04 - referred to teacher specialist 02/04 - normal [facility]BMG upper endoscopy, colonoscopy with normal biopsies Numbness and tingling in right hand 09/02/2013 Overview (02/26/2024): Dr. Le - EMG consistent with mild carpal tunnel syndrome, not verifiable clinically Seropositive rheumatoid arth ritis ([facility] V24, [facility] V28) 08/26/2013 Overview (02/26/2024): Dr. Sousa 09/03 [...] PM EDT Hospital Encounter Radiology Department - [address] [phone] Abnormal mammogram Discharge Disposition: Home or Self Care 08/09/2024 10:19 AM EDT - 08/09/2024 11:59 PM EDT Hospital Encounter Radiology Department - [address] [place] [phone] Abnormal mammogram Discharge Disposition: Home or Self Care 08/01/2024 5:51 PM EDT - 08/01/2024 11:59 PM EDT Hospital Encounter Radiology Department - [address] [phone] Encounter for screening mammogram for breast cancer [...] 8:45 AM EDT Office Visit Adult Medicine [address] [phone] Tomeka Carranza MD [address] [place] [address] Health Maintenance Due Date Last Done Comments [...] Procedure Name Priority Date/Time Associated Diagnosis Comments EXTERNAL CLINICAL LAB 09/28/2024 US BREAST LIMITED LEFT Routine 08/09/2024 10:40 AM EDT Abnormal mammogram MG MAMMO DIGITAL DIAGNOSTIC W MARIELY LEFT Routine 08/09/2024 10:24 AM EDT Abnormal mammogram MG MAMMO DIGITAL SCREENING W MARIELY BILAT Routine 08/01/2024 6:11 PM EDT Encounter for screening mammogram for breast cancer LIPID PANEL WITH REFLEX TO DIRECT LDL Routine 05/25/2024 9:53 AM EST Routine general medical examination at a health care facility HM HPV Routine 11/27/2023 HM DEPRESSION SCREENING Routine 04/21/2023 HEPATITIS C SCREENING Routine 04/07/2014 from Last 3 Months or Most Recently Relevant to Health Maintenance Results * External clinical lab (09/28/2024) us Provider [facility] BLOOD ORDERABLES Fin al Result * US Breast Limited Left (08/09/2024 10:40 [...] is recommended in 1 year. MAMMO LOCATION: [facility], [address] [place] [address], [id number], . -------- FINAL REPORT -------- Dictated By: Lore Ramesh Dictated Date: 08/09/2024 11:18 ET Assigned Physician: Lore Ramesh Reviewed and Electronically Signed By: Lore Ramesh Signed Date: 08/09/2024 11:26 ET Workstation ID: [id number] Transcribed By: Self Edit Transcribed Date: 08/09/2024 [...] is recommended in 1 year. MAMMO LOCATION: [facility], [address] [place] [address], [phone], . -------- FINAL REPORT -------- Dictated By: Lore Ramesh Dictated Date: 08/09/2024 11:18 ET Assigned Physician: Lore Ramesh Reviewed and Electronically Signed By: Loer Ramesh Signed Date: 08/09/2024 11:26 ET Workstation ID: [id number] Transcribed By: Self Edit Transcribed Date: 08/09/2024 [...] is recommended in 1 year. MAMMO LOCATION: [facility], [address] [place] [address], [phone], . -------- FINAL REPORT -------- Dictated By: Lore Ramesh Dictated Date: 08/09/2024 11:18 ET Assigned Physician: Lore Ramesh Reviewed and Electronically Signed By: Lore Ramesh Signed Date: 08/09/2024 11:26 ET Workstation ID: [id number] Transcribed By: Self Edit Transcribed Date: 08/09/2024 [...] is recommended in 1 year. MAMMO LOCATION: [facility], [address] [place] [address], [id number], . -------- FINAL REPORT -------- Dictated By: Lore Ramesh Dictated Date: 08/09/2024 11:18 ET Assigned Physician: Lore Ramesh Reviewed and Electronically Signed By: Lore Ramesh Signed Date: 08/09/2024 11:26 ET Workstation ID: [id number] Transcribed By: Self Edit Transcribed Date: 08/09/2024 11:18 ET Tomeka Carranza MD IMG BI PROCEDURES Final [...] CC spot compression, targeted ultrasound Mammo Location: [facility], [address] [place] [address], [id number], . -------- FINAL REPORT -------- Dictated By: Vladislav Marino Dictated Date: 08/02/2024 15:31 ET Assigned Physician: Vladislav Marino Reviewed and Electronically Signed By: Vladislav Marino Signed Date: 08/02/2024 15:35 ET Workstation ID: [id number] Transcribed By: Self Edit Transcribed Date: 08/02/2024 [...] breast CC spotcompression, targeted ultrasound Mammo Location: [facility], [address] [place] [address], [id number], . -------- FINAL REPORT -------- Dictated By: Vladislav Marino Dictated Date: 08/02/2024 15:31 ET Assigned Physician: Vladislav Marino Reviewed and Electronically Signed By: Vladislav Marino Signed Date: 08/02/2024 15:35 ET Workstation ID: [id number] Transcribed By: Self Edit Transcribed Date: 08/02/2024 15:31 ET us Tomeka Cararnza MD IMG BI PROCEDURES Final Result * (ABNORMAL) Lipid panel with reflex to direct LDL (05/25/2024 9:53 AM EST) [facility] Cholesterol 197 0 - 200 mg/dL LAB CHEMISTRY METHOD 05/25/2024 1:56 PM EST [facility] Triglycerides 88 0 - 150 mg/dL LAB CHEMISTRY METHOD 05/25/2024 1:56 PM [facility] HDL 74 >=40 mg/dL LAB CHEMISTRY METHOD 05/25/2024 1:56 PM [facility] LDL Calculated 105(H) 0 - 100 mg/dL LAB CHEMISTRY METHOD 05/25/2024 1:56 PM EST [facility] VLDL Cholesterol Jason 17.6 mg/dL LAB CHEMISTRY METHOD 05/25/2024 1:56 PM [facility] Non HDL Chol. (LDL+VLDL) 123 <145 mg/dL LAB CHEMISTRY METHOD 05/25/2024 1:56 PM [facility] Chol/HDL Ratio 2.7 0.0 - 4.4 LAB CHEMISTRY METHOD 05/25/2024 1:56 PM EST [facility] Blood Venous blood specimen / Unknown Venipuncture / Unknown 05/25/2024 9:53 AM EST 05/25/2024 9:53 AM EST Tomeka Carranza MD LAB BLOOD ORDERABL ES Final Result [facility] [address] [place] [address], * Cervical Cancer Screening: HPV (11/27/2023) Pathologist [facility] Cervical Cancer Screening: HPV Positive, Abstracted us Historical Provider HEALTH MAINTENANCE Final Result * Depression Screening (04/21/2023) [facility] Depression Screening Abstracted us Historical Provider HEALTH MAINTENANCE Final Result * Hepatitis C Screening (04/07/2014) [facility] Hepatitis C Screening Abstracted us Historical Provider HEALTH MAINTENANCE Final Result from Last 3 Months or Most Recently Relevant to Health Maintenance Insurance [facility] [employer] Care Teams Refueling Ramp Supervisor Relationship Specialty Start Date End Date Tomeka Carranza MD [address] [place] [id number] PCP - General Internal Medicine 08/07/20
== END 2024-10-04 14:27 | disposition home or self-care (01) ==
LOC: HO.RHE 13:49
PROVIDERS: PCP Internal Medicine; Visit Provider Student in an Organized Health Care Education/Training Program
DX: M05.79 Rheumatoid arthritis with rheumatoid factor of multiple sites without organ or systems involvement (principal); M15.9 Polyosteoarthritis, unspecified; Z79.899 Other long term (current) drug therapy
CPT/HCPCS: 99214; G2211

== ENCOUNTER → 2024-10-04 13:48 | Outpatient (BNVA) | payer OTHER, SELFPAY | PROVIDERS: PCP Internal Medicine; Visit Provider Student in an Organized Health Care Education/Training Program | DX: M05.9 Rheumatoid arthritis with rheumatoid factor, unspecified (principal); M15.9 Polyosteoarthritis, unspecified; Z79.899 Other long term (current) drug therapy; E78.5 Hyperlipidemia, unspecified | CPT/HCPCS: 99212 ==

== ENCOUNTER 2024-10-11 14:49 | Outpatient (REF) | payer OTHER, SELFPAY ==
--- OUTSIDE RECORDS SUMMARY | 2024-10-11 15:57 | XMS_ITS | Clinical Summary ---
Author Organization [facility] Address [address] [place] [address] Phone Care Team Providers Care Rubber Moulding Machine Operator Name Role Phone Tomeka Carranza MD [...] 08/29/2014 Overview (02/26/2024): 09/04 - referred to communications equipment supervisor 02/04 - normal [facility] upper endoscopy, colonoscopy with normal biopsies Numbness and tingling in right hand 09/02/2013 Overview (02/26/2024): Dr. Le - EMG consistent with mild carpal tunnel syndrome, not verifiable clinically Seropositive rheumatoid arth ritis ([facility] V24, [facility] V28) 08/26/2013 Overview (02/26/2024): Dr. Sousa 09/03 [...] PM EDT Hospital Encounter Radiology Department - [address] [phone] Abnormal mammogram Discharge Disposition: Home or Self Care 08/09/2024 10:19 AM EDT - 08/09/2024 11:59 PM EDT Hospital Encounter Radiology Department - [address] [place] [phone] Abnormal mammogram Discharge Disposition: Home or Self Care 08/01/2024 5:51 PM EDT - 08/01/2024 11:59 PM EDT Hospital Encounter Radiology Department - [address] [phone] Encounter for screening mammogram for breast cancer [...] COMMENT: Normal UPPER GASTROINTESTINAL ENDOSCOPY 01/30/2015 PROCEDURE: AL UPPER GI ENDOSCOPY PERFORMED; COMMENT: Visually normal; duodenal biopsies: normal. OTHER SURGICAL HISTORY 01/05 PROCEDURE: AL UNLISTED PROCEDURE CONJUNCTIVA; COMMENT: cosmetic surgery Medical [...] 8:45 AM EDT Office Visit Adult Medicine [address] [phone] Tomeka Carranza MD [address] [place] [address] Health Maintenance Due Date Last Done Comments Colorectal Cancer Screening: Colonoscopy 02/22/2022 Pneumococcal Vaccine: 50+ Years (1 of 1 - PCV) 2024 Zoster Vaccines (1 of 2) 2024 Influenza Vaccine (#1) 2024 02/03/2024, 2019 Cervical Cancer Screening: HPV 11/26/2024 11/27/2023 Social Influencers of Health Screening 05/20/2025 05/20/2024 Breast Cancer Screening 08/09/2026 08/10/19, 08/01/2024, 10/15/2020, Additional history exists Cholesterol Screening (Lipid Panel) 05/25/2029 05/25/2024, 04/21/2023 DTaP,Tdap,and Td Vaccines (4 - Td or Tdap) 04/21/2033 04/21/2023, 04/19/2013, 10/31/2003 Hepatitis C Screening Completed 04/07/2014 COVID-19 Vaccine Discontinued 01/17/2021, , 06/15/2020 Depression Screening Completed 05/20/2024, 04/21/19 24 HIB Vaccines Aged Out No longer eligi [...] health care facility HM HPV Routine 11/27/2023 DEPRESSION SCREENING Routine 04/21/2023 [...] is recommended in 1 year. MAMMO LOCATION: [facility], [address] [place] [address], [id number], . -------- FINAL REPORT -------- Dictated By: Lore Ramesh Dictated Date: 08/09/2024 11:18 ET Assigned Physician: Lore Ramesh Reviewed and Electronically Signed By: Lore Ramesh Signed Date: 08/09/2024 11:26 ET Workstation ID: [id number] Transcribed By: Self Edit Transcribed Date: 08/09/2024 [...] lesion or ductal ectasia identified. Procedure Note Domitila, Lore, MD - 08/09/2024 EXAM: MG MAMMO DIGITAL [...] is recommended in 1 year. MAMMO LOCATION: [facility], [address] [place] [address], [phone], . -------- FINAL REPORT -------- Dictated By: Lore Ramesh Dictated Date: 08/09/2024 11:18 ET Assigned Physician: Lore Ramesh Reviewed and Electronically Signed By: Lore Ramesh Signed Date: 08/09/2024 11:26 ET Workstation ID: [id number] Transcribed By: Self Edit Transcribed Date: 08/09/2024 [...] is recommended in 1 year. MAMMO LOCATION: [facility], [address] [place] [address], [phone], . -------- FINAL REPORT -------- Dictated By: Lore Ramesh Dictated Date: 08/09/2024 11:18 ET Assigned Physician: Lore Ramesh Reviewed and Electronically Signed By: Lore Ramesh Signed Date: 08/09/2024 11:26 ET Workstation ID: [id number] Transcribed By: Self Edit Transcribed Date: 08/09/2024 [...] lesion or ductal ectasia identified. Procedure Note Lroe Ramesh MD - 08/09/2024 EXAM: MG MAMMO [...] is recommended in 1 year. MAMMO LOCATION: [facility], [address] [place] [address], [phone], . -------- FINAL REPORT -------- Dictated By: Lore Ramesh Dictated Date: 08/09/2024 11:18 ET Assigned Physician: Lore Ramesh Reviewed and Electronically Signed By: Lore Ramesh Signed Date: 08/09/2024 11:26 ET Workstation ID: [id number] Transcribed By: Self Edit Transcribed Date: 08/09/2024 11:18 ET us Tomeka Carrnaza MD IMG BI PROCEDURES Final Result * [...] CC spot compression, targeted ultrasound Mammo Location: [facility], [address] [place] [address], [phone], . -------- FINAL REPORT -------- Dictated By: Vladislav Marino Dictated Date: 08/02/2024 15:31 ET Assigned Physician: Vladislav Marino Reviewed and Electronically Signed By: Vladislav Marino Signed Date: 08/02/2024 15:35 ET Workstation ID: [id number] Transcribed By: Self Edit Transcribed Date: 08/02/2024 [...] breast CC spotcompression, targeted ultrasound Mammo Location: [facility], [address] [place] [address], [phone], . -------- FINAL REPORT -------- Dictated By: Vladislav Marino Dictated Date: 08/02/2024 15:31 ET Assigned Physician: Vladislav Marino Reviewed and Electronically Signed By: Vladislav Marino Signed Date: 08/02/2024 15:35 ET Workstation ID: [id number] Transcribed By: Self Edit Transcribed Date: 08/02/2024 15:31 ET us Tomeka Carranza MD IMG BI PROCEDURES Final Result * (ABNORMAL) Lipid panel with reflex to direct LDL (05/25/2024 9:53 AM EST) Cholesterol 197 0 - 200 mg/dL LAB CHEMISTRY METHOD 05/25/2024 1:56 PM EST [facility] Triglycerides 88 0 - 150 mg/dL LAB CHEMISTRY METHOD 05/25/2024 1:56 PM [facility] HDL 74 >=40 mg/dL LAB CHEMISTRY METHOD 05/25/2024 1:56 PM [facility] LDL Calculated 105(H) 0 - 100 mg/dL LAB CHEMISTRY METHOD 05/25/2024 1:56 PM EST [facility] VLDL Cholesterol Jason 17.6 mg/dL LAB CHEMISTRY METHOD 05/25/2024 1:56 PM [facility] Non HDL Chol. (LDL+VLDL) 123 <145 mg/dL LAB CHEMISTRY METHOD 05/25/2024 1:56 PM [facility] Chol/HDL Ratio 2.7 0.0 - 4.4 LAB CHEMISTRY METHOD 05/25/2024 1:56 PM [facility] Blood Venous blood specimen / Unknown Venipuncture / Unknown 05/25/2024 9:53 AM EST 05/25/2024 9:53 AM EST Tomeka Carranza MD LAB BLOOD ORDERABL ES Final Result [facility] [address] [place] [address], * Cervical Cancer Screening: HPV (11/27/2023) [facility] Cervical Cancer Screening: HPV Positive, Abstracted Historical Provider HEALTH MAINTENANCE Final Result * Depression Screening (04/21/2023) [facility] Depression Screening Abstracted Historical Provider HEALTH MAINTENANCE Final Result * Hepatitis C Screening (04/07/2014) [facility] Hepatitis C Screening Abstracted Historical Provider HEALTH MAINTENANCE Final Result from Last 3 Months or Most Recently Relevant to Health Maintenance Insurance [facility] Care Teams Rubber Moulding Machine Operator Relationship Specialty Start Date End Date Tomeka Carranza MD [address] [place] [id number] PCP - General Internal Medicine 08/07/20
[2024-10-13 23:48] LABS: TS Negative Control Passed; TS Panel A 0; TS Panel B 0; TS Positive Control Passed; TSpotTB Negative (Negative)
== END 2024-10-11 14:50 | disposition home or self-care (01) ==
LOC: HO.LAB 14:49
PROVIDERS: Internal Medicine Rheumatology; PCP Internal Medicine; Visit Provider Student in an Organized Health Care Education/Training Program
DX: Z11.1 Encounter for screening for respiratory tuberculosis (principal); M05.9 Rheumatoid arthritis with rheumatoid factor, unspecified
CPT/HCPCS: 36415; 86481